=== PATIENT | male | born 1990 | race Caucasian/White ===

== ENCOUNTER 2021-04-30 15:04 | Emergency (ER) | payer OTHER, SELFPAY ==
--- NOTE | ~2021-04-30 | XR_ITS ---
EXAMINATION: XR tibia fibula LT 2V INDICATION: Left leg pain TECHNIQUE: Two views of the left tibia and fibula are obtained on four radiographs. COMPARISON: None available FINDINGS: There is no fracture, dislocation, or subluxation. The bones and joint spaces are normal. T here is mild anterior soft tissue swelling overlying the lower leg. IMPRESSION: 1. Mild soft tissue swelling without acute osseous abnormality. Reviewed, dictated and finalized at location A. PHONE STATION INSTALLER
[2021-04-30 15:16] VITALS: BP 153/94; PULSE 85; RESP 20; TEMP 37.2; O2SAT 100
[2021-04-30 15:17] VITALS: BP 153/94; PULSE 85; RESP 20; TEMP 37.2; O2SAT 100
--- NOTE | 2021-04-30 15:18 | ED.LOWEXIN ---
HPI - Extremity Injury (Lower) General Chief Complaint: Extremity Injury, Lower Stated Complaint: Left Leg Pain Time Seen by Provider: 04/30/21 15:18 Source: patient and RN notes reviewed Mode of arrival: ambulatory Limitations: no limitations History of Present Illness HPI Narrative: Teja is a 30 male patient who ambulated into [facility]. Patient states he had taken a man hole cover off in his yard. He stepped backward and his left leg went into the hole. Small abrasion on left silva and bruising noted. Patient states he used icy hot for pain relief. Patient has not used ice or heat, or any other OTC medications. Patient was seen at [facility]; he states they said they wouldn't do an Xray so patient walked out. MD complaint: leg injury Related Data Home Medications Medication Instructions Recorded Confirmed lisinopril-hydrochlorothiazide 1 tablet PO DAILY 04/30/19 pantoprazole 20 mg PO QAM 04/30/19 bupropion HCl mg PO 04/30/21 04/30/21 sertraline mg 04/30/21 Allergies Allergy/AdvReac Type Severity Reaction Status Date / Time No Known Allergies Allergy Verified 04/30/21 15:14 Review of Systems Review of Systems: CONSTITUTIONAL: Denies body aches, fever, chills, or sweats. EYES: Denies visual changes, redness, or discharge. ENT: Denies rhinorrhea, congestion, sore throat, or otalgia. CARDIOVASCULAR: Denies chest pain, palpitations, or edema. RESPIRATORY: Denies cough or dyspnea. GASTROINTESTINAL: Denies abdominal pain, nausea, vomiting, or diarrhea. GENITOURINARY: Denies dysuria or hematuria. SKIN: Denies rash, itching, + abrasion left silva, bruising MUSCULOSKELETAL: Denies back pain, joint pain, or myalgia. NEUROLOGIC: Denies headache, numbness, tingling, or weakness. PSYCH: Denies depression or anxiety. All systems reviewed & are unremarkable except as noted in HPI and below PMFSH Past Medical History Medical History HTN (hypertension) Surgical History Surgical History No history of previous surgery Social History Social History Smoking status: Never smoker Gender identity (if verbalized by the patient): Male Exam Narrative: GENERAL: Well-appearing, well-nourished, and in no acute distress. HEAD: Normocephalic, atraumatic. EYES: EOMI. No redness or drainage. Conjunctivae normal. ENT: Mucous membranes pink and moist. Nares clear. No rhinorrhea. NECK: Normal AROM. Supple. CHEST: No respiratory distress. MUSCULOSKELETAL: No bony tenderness. EXTREMITIES: Normal range of motion. No edema. SKIN: Warm, dry, no rash. Capillary refill normal. Normal skin turgor. 1cm healing abrasion left silva, ecchymosis to silva. ROM normal. distal sensation intact. NEURO: No focal deficits. Alert and oriented x3. Gait steady. PSYCH: Normal affect. No signs of depression or anxiety. Course Vital Signs Vital signs: Vital Signs Temperature 37.2 C 04/30/21 15:16 Pulse Rate 85 04/30/21 15:16 Respiratory Rate 20 04/30/21 15:16 Blood Pressure 153/94 H 04/30/21 15:16 Pulse Oximetry 100 04/30/21 15:16 Temperature 37.2 C 04/30/21 15:17 Pulse Rate 85 04/30/21 15:17 Respiratory Rate 20 04/30/21 15:17 Blood Pressure 153/94 H 04/30/21 15:17 Pulse Oximetry 100 04/30/21 15:17 Reviewed. Pt has been instructed to follow up with his PCP regarding his elevated blood pressure today. MDM - Extremity Injury (Lower) MDM Narrative Medical decision making narrative: Impressions Tibia/Fibula X-Ray 04/30/21 15:33 IMPRESSION: 1. Mild soft tissue swelling without acute osseous abnormality. Patient's x-ray is negative. Will be treated as a contusion. May use Aleve twice daily for pain/inflammation. May use ice to the area. Follow-up with your primary care doctor in 10 to 14 days Differ
== END 2021-04-30 15:50 | disposition home or self-care (01) ==
PROVIDERS: Emergency Provider Nurse Practitioner Family; PCP Family Medicine
DX: S80.12XA Contusion of left lower leg, initial encounter (principal); W17.1XXA Fall into storm drain or manhole, initial encounter; I10 Essential (primary) hypertension
CPT/HCPCS: 73590; 99213; G0463

== ENCOUNTER 2021-05-19 12:59 | Emergency (ER) | payer OTHER, SELFPAY ==
--- NOTE | ~2021-05-19 | CT_ITS ---
EXAMINATION: CTA chest PE protocol DATE: 05/19/2021 17:47 INDICATION: Shortness of breath. COVID positive. TECHNIQUE: Computed tomography (CT) pulmonary angiogram of the chest was performed with 100 mL Omnipa que-350 intravenous contrast. Additional 3D reconstructions utilizing coronal maximum intensity proje ction (MIP) were performed. Automated exposure control and iterative reconstruction technique were em ployed. The dose-length product was 1065.82 mGy-cm. COMPARISON: None FINDINGS: Good contrast opacification of the pulmonary arteries. There is mild streak artifact from dense contr ast in the superior vena cava and right atrium. Mild scattered respiratory motion artifact which does not significantly limit evaluation. No pulmonary embolism. Numerous very small scattered patchy grou ndglass opacities throughout both lungs consistent with COVID pneumonia. No pulmonary edema, pleural effusion or pneumothorax. Normal variant azygos lobe and fissure. Heart size is normal. No pericardia l effusion. Thoracic aorta is normal in caliber with no dissection. Mildly prominent but still normal -sized bilateral hilar lymph nodes which are likely reactive. Small sliding-type hiatal hernia. Diffu se hepatic steatosis. Visualized upper abdomen is otherwise unremarkable. Mild thoracic spondylosis. Chronic appearing mild anterior wedging at T11 and T12 which may be physiologic. IMPRESSION: 1. No pulmonary embolism. 2. Numerous small patchy groundglass opacities throughout both lungs consistent with COVID pneumonia. Reviewed, dictated and finalized at [facility]. COOK
--- NOTE | ~2021-05-19 | XR_ITS ---
EXAMINATION: XR chest 1V portable DATE: 05/19/2021 15:46 INDICATION: Shortness of breath. COVID. TECHNIQUE: frontal view of the chest was obtained. COMPARISON: Chest radiograph dated 04/30/2019 FINDINGS: The lungs remain clear with no focal airspace opacities, pulmonary edema, pleural effusion or pneumot horax. Again seen is anatomic variant azygos lobe and fissure in the right upper lung zone. The cardi omediastinal silhouette is normal. Visualized bones and soft tissues are unremarkable. IMPRESSION: 1. No acute cardiopulmonary disease. Reviewed, dictated and finalized at location . NSIC TECHNICIAN
[2021-05-19 13:09] VITALS: BP 157/121; PULSE 104; RESP 20; TEMP 36.4; O2SAT 98
--- NOTE | 2021-05-19 13:14 | ECG_ITS ---
Measurements Intervals Jackman Rate: 111 P: 33 ND: 166 QRS: -38 QRSD: 117 T: 31 QT: 329 QTc: 447 Interpretive Statements SINUS TACHYCARDIA LEFT AXIS DEVIATION INTRAVENTRICULAR CONDUCTION DELAY DELAYED PRECORDIAL R/S TRANSITION ABNORMAL ECG Electronically Signed On 05-19-2021 17:46:19 TELLERS SUPERVISOR by Quentin Solis D.O.
[2021-05-19 15:21] VITALS: BP 108/57; PULSE 100; RESP 20; O2SAT 95
[2021-05-19 16:51] LABS: Basophils Percent Auto 0.3 % (0.2-1.2); Eosinophils Percent Auto 0.5 % (0-4.4); Hematocrit 47.1 % (42.0-52.0); Immature Granulocyte Absolute 0.02 K/mm3 (0.00-0.031); Immature Granulocyte Percent A 0.5 % (0-0.5); Lymphocytes Absolute Auto 1.26 K/mm3 (0.9-3.2); Mean Corpuscular Volume 85.5 fl (80-100); Mean Platelet Volume 9.9 fl (7.4-10.4); Monocytes Absolute Auto 0.4 K/mm3 (0.1-0.6); Monocytes Percent Auto 9.7 % (2.6-8.5); Neutrophils Absolute Auto 2.1 K/mm3 (1.3-6.7); Platelet Count Result 221 k/mm3 (150-375); Red Blood Count 5.51 M/mm3 (4.6-6.20); Red Cell Distribution Width 12.6 % (11.5-14.5); White Blood Count 3.8 K/mm3 (4.5-10.0)
[2021-05-19 17:00] LABS: Alanine Aminotransferase 52 U/L (4-50); Albumin Level 4.6 g/dL (3.5-5.1); Alkaline Phosphatase 69 U/L (38-126); Anion Gap 8 mmol/L (8-16); Aspartate Amino Transferase 40 U/L (17-59); Bilirubin,Total 0.4 mg/dL (0.2-1.3); Blood Urea Nitrogen 14 mg/dL (9-20); Carbon Dioxide 22 mmol/L (22-30); Chloride 102 mmol/L (98-107); Estimated CRCL calculation 181 ml/min; Estimated Glomerular Filt Rate > 60; Glucose 94 mg/dL (65-110); Potassium 3.7 mmol/L (3.4-5.0); Sodium 132 mmol/L (137-145)
[2021-05-19 17:04] LABS: INR 0.9
[2021-05-19 17:05] LABS: Partial Thromboplastin Time 31.3 SECONDS (22.3-36.8)
[2021-05-19 17:07] LABS: D Dimer 0.45 ug/mL (<0.48)
[2021-05-19 17:11] LABS: Troponin I < 0.012 ng/mL (0.000-0.034)
--- NOTE | 2021-05-19 18:08 | ED.GENADULT ---
HPI - General Adult General Chief complaint: Shortness of Breath/Dyspnea Stated complaint: SOB- covid + on 05/15 Time Seen by Provider: 05/19/21 15:25 Source: patient Mode of arrival: ambulatory Limitations: no limitations History of Present Illness HPI narrative: Patient presents for evaluation of numbness and tingling in bilateral hands and feet which started today. He indicates on 05/15/2021 he took his children to be evaluated at [facility]. They had stayed over at a friend's house who tested positive for COVID. While he was driving he began feeling lightheaded so he went to [facility] on 05/15/21. He states he had labs performed, COVID swab, and CXR. He was discharged from the ER and told he had a viral illness. The next day he saw in his electronic chart that he tested positive for COVID. [place] short of breath and has a nonproductive cough. Denies any fever, chills, sore throat, abdominal pain, chest pain, nausea, vomiting or diarrhea. Today he developed numbness and tingling in his hands and feet which prompted him to come in for further evaluation. No personal history of VTE but his mother does have a history of DVT. No additional complaints or concerns. Related Data Home Medications Medication Instructions Recorded Confirmed lisinopril-hydrochlorothiazide 1 tablet PO DAILY 04/30/19 pantoprazole 20 mg PO QAM 04/30/19 bupropion HCl mg PO 04/30/21 04/30/21 sertraline mg 04/30/21 Allergies Allergy/AdvReac Type Severity Reaction Status Date / Time No Known Allergies Allergy Verified 04/30/21 15:14 Review of Systems Review of Systems: CONSTITUTIONAL: Denies fever, chills, or sweats. EYES: Denies visual changes, redness, or discharge. ENT: Denies rhinorrhea, congestion, sore throat, or otalgia. CARDIOVASCULAR: Denies chest pain, palpitations, or edema. RESPIRATORY: Reports shortness of breath and cough GASTROINTESTINAL: Denies abdominal pain, nausea, vomiting, or diarrhea. GENITOURINARY: Denies dysuria or hematuria. SKIN: Denies rash or itching. MUSCULOSKELETAL: Denies back pain, joint pain, or myalgia. NEUROLOGIC: Reports numbness and tingling in bilateral hands and feet. Denies headache, numbness, dizziness, or weakness. PSYCHIATRIC: Denies anxiety or depression. [facility] Past Medical History Medical History HTN (hypertension) Surgical History Surgical History No history of previous surgery Family History Family History Mother DVT (deep venous thrombosis) Pulmonary embolism Social History Social History Smoking status: Never smoker Substance use: never Living arrangements: with family Gender identity (if verbalized by the patient): Male Sexual Orientation (if Verbalized by the Patient): Straight or Heterosexual Spiritual care concerns: No Exam Narrative: GENERAL: Well-appearing, well-nourished, and in no acute distress. HEAD: Normocephalic, atraumatic. EYES: PERRLA and EOMI. ENT: Nares clear, no rhinorrhea or epistaxis. Mucous membranes moist. Oropharynx without tonsillar hypertrophy exudate or other lesions. Bilateral TMs pearly foster nonbulging NECK: Supple. No adenopathy or masses. No carotid bruits or JVD CHEST: Clear to auscultation. No respiratory distress. No wheezes rales or rhonchi HEART: Regular rate and rhythm. No murmur heard. Normal peripheral pulses. ABDOMEN: Soft, nontender, nondistended, normal active bowel sounds. EXTREMITIES: Normal range of motion. No edema. Capillary refill less than 3 seconds in all digits of hands and feet. 2+ bilateral pedal and radial pulses. Sensation intact SKIN: Warm, dry, no rash. NEURO: No focal deficits. Alert and oriented x3. PSYCH: Normal mood and affect. Course C
[2021-05-19 18:37] VITALS: BP 132/78; PULSE 76; RESP 18; O2SAT 99
== END 2021-05-19 18:40 | disposition home or self-care (01) ==
PROVIDERS: Emergency Provider Nurse Practitioner; PCP Family Medicine
DX: U07.1 COVID-19 (principal); J18.9 Pneumonia, unspecified organism; I10 Essential (primary) hypertension; R00.0 Tachycardia, unspecified; I45.9 Conduction disorder, unspecified
CPT/HCPCS: 36415; 71045; 71275; 80053; 84484; 85025; 85380; 85610; 85730; 93005; 99284; Q9967

== ENCOUNTER 2021-10-11 09:09 | Emergency (ER) | payer OTHER, SELFPAY ==
[2021-10-11 09:23] VITALS: BP 171/100; PULSE 81; RESP 16; TEMP 37; O2SAT 98
--- NOTE | 2021-10-11 09:32 | ED.NAVMDI ---
HPI - Nausea/Vomiting/Diarrhea General Chief complaint: Nausea/Vomiting/Diarrhea Stated complaint: Headache,Swollen Hands Time Seen by Provider: 10/11/21 09:32 Source: patient Mode of arrival: ambulatory Limitations: no limitations History of Present Illness HPI Narrative: 31-year-old male, who is morbidly obese, presents with complaint of fatigue, body aches, nausea, soft stools, headache that started this AM. Reports that his hands are swollen. Yesterday he ate sushi which was not good so he only ate a few bites and then ate pizza for dinner. He has not taken his blood pressure medication for 1 week. States that sitting right there on his bedside table but he has just not taking it. He denies shortness of breath and chest pain. He thinks that he may have a virus. Trying to go to work today. But did not feel good enough to work. Is here to see if he is contagious. Reports that he last saw his primary care physician 1 month ago. 2 months ago he had labs drawn and was told cholesterol was high but no issues with blood glucose or A1c. Patient also states his blood pressure is probably high today due to not taking his medications. He does not need a refill. All systems reviewed and negative except as noted above. Related Data Home Medications Medication Instructions Recorded Confirmed lisinopril-hydrochlorothiazide 1 tablet PO DAILY 04/30/19 pantoprazole 20 mg PO QAM 04/30/19 bupropion HCl mg PO 04/30/21 04/30/21 sertraline mg 04/30/21 Allergies Allergy/AdvReac Type Severity Reaction Status Date / Time amoxicillin AdvReac Other Verified 10/11/21 09:32 Review of Systems Review of Systems: CONSTITUTIONAL: Denies fever. Reports chills, sweats and fatigue. EYES: Denies visual changes, redness, or discharge. ENT: Denies rhinorrhea, congestion, sore throat, or otalgia. CARDIOVASCULAR: Denies chest pain, palpitations, or edema. RESPIRATORY: Denies cough or dyspnea. GASTROINTESTINAL: Denies abdominal pain. Reports nausea. Denies vomiting, or diarrhea. GENITOURINARY: Denies dysuria or hematuria. SKIN: Denies rash or itching. MUSCULOSKELETAL: Denies back pain, joint pain, or myalgia. NEUROLOGIC: Reports headache. Denies numbness, or weakness. PSYCHIATRIC: Denies anxiety or depression. All other systems reviewed are negative, except as documented in HPI. [facility] Past Medical History Medical History HTN (hypertension) Surgical History Surgical History No history of previous surgery Family History Family History Mother DVT (deep venous thrombosis) Pulmonary embolism Social History Social History Smoking status: Never smoker Substance use: never Gender identity (if verbalized by the patient): Male Sexual Orientation (if Verbalized by the Patient): Straight or Heterosexual Spiritual care concerns: No Comments At time of signature, agree with nursing past medical, surgical, social and family history. There is no relevant family history pertinent to the presenting complaint. Exam Narrative: GENERAL: This is a well-nourished, well-developed patient, in no apparent distress. Morbidly obese. HEAD: normocephalic, atraumatic. EYES: PERRL. Sclera clear/white. Vision is grossly intact. EARS: External ears normal NOSE: External nose normal NECK: Neck supple, non-tender without lymphadenopathy, masses or thyromegaly. CARDIOVASCULAR: Regular rate and rhythm without murmurs, gallops, or rubs. RESPIRATORY: Clear to auscultation. Breath sounds equal bilaterally. No wheezes, rales, or rhonchi. GASTROINTESTINAL: Abdomen soft, non-tender, nondistended. Bowel sounds are active. No hepato-splenomegaly, or palpable masses. No guarding. SKIN: warm, Dry, intact with no suspicious le
[2021-10-11] MEDS: ONDANSETRON HCL ODT 4 MG TABLET SUBLINGUAL (09:49)
[2021-10-11 09:52] LABS: Glucose Point of Care 114 mg/dl (65-105)
[2021-10-11 10:12] VITALS: BP 134/96
== END 2021-10-11 10:03 | disposition home or self-care (01) ==
PROVIDERS: Emergency Provider Nurse Practitioner Family; PCP Family Medicine
DX: I10 Essential (primary) hypertension (principal); A08.4 Viral intestinal infection, unspecified
CPT/HCPCS: 82948; 99213; A9270; G0463

== ENCOUNTER 2021-10-30 17:01 | Emergency (ER) | payer OTHER, SELFPAY ==
[2021-10-30 17:10] VITALS: BP 156/88; PULSE 98; RESP 20; TEMP 37.2; O2SAT 98
--- NOTE | 2021-10-30 17:24 | ED.GENADULT ---
HPI - General Adult General Chief complaint: Unspecified Stated complaint: geronimo hand swelling Time Seen by Provider: 10/30/21 17:24 Source: patient Mode of arrival: ambulatory Limitations: no limitations History of Present Illness HPI narrative: 31-year-old male presented for complaint of left hand pain and swelling for about 3 to 4 days. He denies any known injury. 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 He is right-hand dominant. He took Advil and reports that felt better but did not resolve completely. Cannot tolerate ice or wrap. States he has been having increased Right hand pain for about one month, and has switched hands using power transformer inspector to the left hand. He denies numbness, tingling, or weakness of the hand. Pain is worse with bending at the wrist. Hx HTN. Related Data Home Medications Medication Instructions Recorded Confirmed lisinopril 20 1 tablet PO DAILY 04/30/19 10/30/21 mg-hydrochlorothiazide 25 mg tablet pantoprazole 20 mg tablet,delayed 20 mg PO QAM 04/30/19 10/30/21 release bupropion HCl 300 mg 24 hr tablet, 300 mg PO DAILY 04/30/21 10/30/21 extended release sertraline 50 mg tablet 50 mg PO DAILY 04/30/21 10/30/21 Allergies Allergy/AdvReac Type Severity Reaction Status Date / Time amoxicillin AdvReac Other Verified 10/30/21 17:21 Review of Systems Review of Systems: CONSTITUTIONAL: Denies body aches, fever, chills EYES: Denies visual changes CARDIOVASCULAR: Denies chest pain, palpitations, or edema. RESPIRATORY: Denies cough or dyspnea. SKIN: Denies rash, itching, or wounds. MUSCULOSKELETAL: reports hand/wrist pain NEUROLOGIC: Denies headache, numbness, tingling, or weakness. All systems reviewed & are unremarkable except as noted in HPI and below PMFSH Past Medical History Medical History HTN (hypertension) Surgical History Surgical History No history of previous surgery Family History Family History Mother DVT (deep venous thrombosis) Pulmonary embolism Social History Social History Smoking status: Never smoker Substance use: never Gender identity (if verbalized by the patient): Male Sexual Orientation (if Verbalized by the Patient): Straight or Heterosexual Spiritual care concerns: No Comments At time of signature, I have reviewed and agree with nursing past medical, surgical, social and family history unless otherwise noted. Please see nursing chart for further information. There is no relevant family history pertinent to the presenting complaint Exam Narrative: GENERAL: Well-appearing CHEST: Speaks in full sentences. No respiratory distress. HEART: Regular rate and rhythm. Normal and equal peripheral pulses. EXTREMITIES: Left hand has limited range of motion with flexion/extension due to pain with movement, tolerates rotation of left wrist. normal motor, strength and sensation to hand/fingers. Mild swelling over metacarpals, TTP over the dorsal surface of carpals into metacarpals, reported pain with light touch to skin; no ecchymosis. Abrasion approx 0.5 cm length without drainage or induration is noted. No obvious deformity; pulse palpable and equal bilaterally, skin warm, dry, pink. Capillary refill less than 3 seconds. NEURO: Alert and oriented x3. Course Course Emergency Course: Patient is aware of diagnosis, understands and agrees to treatment plan. Anticipatory guidance given. Patient agrees to follow-up as directed and is aware of reasons to seek care at the emergency department. Portions of this record may have been created with voice recognition software Level of Care: Express Care Visit Vital Signs Vital signs: Vital Signs Temperature 99.0 F 10/30/21 17:10 Pulse Rate 98 10/30/21 17:10 Respirator
== END 2021-10-30 17:44 | disposition home or self-care (01) ==
PROVIDERS: Emergency Provider Nurse Practitioner Family; PCP Family Medicine
DX: M79.89 Other specified soft tissue disorders (principal); I10 Essential (primary) hypertension
CPT/HCPCS: 99213; G0463

== ENCOUNTER 2022-04-13 15:42 | Emergency (ER) | payer OTHER, SELFPAY ==
[2022-04-13 16:50] VITALS: BP 149/89; PULSE 84; RESP 20; TEMP 36.6; O2SAT 99
--- NOTE | 2022-04-13 17:04 | ED.GENADULT ---
HPI - General Adult General Chief complaint: Dental/Oral Stated complaint: dizziness Time Seen by Provider: 04/13/22 17:04 Source: patient Mode of arrival: ambulatory Limitations: no limitations History of Present Illness HPI narrative: 31-year-old male patient presents to the [facility] with complaints of left-sided were soreness/pain on the neck. Nasal congestion, headache sinus pressure. Patient states it has been going on for about 2 days prior denies fevers, body aches or chills. Denies any chest pain, shortness of breath. Denies any coughing. Denies any abdominal pain, nausea, vomiting or diarrhea. Related Data Home Medications Medication Instructions Recorded Confirmed lisinopril 20 1 tablet PO DAILY 04/30/19 04/13/22 mg-hydrochlorothiazide 25 mg tablet pantoprazole 20 mg tablet,delayed 20 mg PO QAM 04/30/19 04/13/22 release sertraline 50 mg tablet 50 mg PO DAILY 04/30/21 04/13/22 Allergies Allergy/AdvReac Type Severity Reaction Status Date / Time amoxicillin AdvReac Mild Dry Mouth Verified 04/13/22 17:02 Review of Systems Review of Systems: CONSTITUTIONAL: Denies fever, chills, or sweats. EYES: Denies visual changes, redness, or discharge. ENT: Positive rhinorrhea, congestion, sore throat, positive pressure to bilateral ears. CARDIOVASCULAR: Denies chest pain, palpitations, or edema. RESPIRATORY: Denies cough or dyspnea. GASTROINTESTINAL: Denies abdominal pain, nausea, vomiting, or diarrhea. GENITOURINARY: Denies dysuria or hematuria. SKIN: Denies rash or itching. MUSCULOSKELETAL: Denies back pain, joint pain, or myalgia. NEUROLOGIC: Denies headache, numbness, or weakness. PSYCHIATRIC: Denies anxiety or depression. [facility] Past Medical History Medical History HTN (hypertension) Surgical History Surgical History No history of previous surgery Family History Family History Mother DVT (deep venous thrombosis) Pulmonary embolism Social History Social History Smoking status: Never smoker Substance use: never Gender identity (if verbalized by the patient): Male Sexual Orientation (if Verbalized by the Patient): Straight or Heterosexual Spiritual care concerns: No Comments At the time of my signature I agree with nursing past medical history, surgical, social, and family history. There is no relevant family history pertinent to the presenting complaint. Exam Narrative: GENERAL: Well-appearing, well-nourished, and in no acute distress. HEAD: Normocephalic, atraumatic. EYES: PERRLA and EOMI. ENT: Nares with erythema or edema noted bilaterally, no rhinorrhea or epistaxis. Mucous membranes moist. Posterior pharynx with no erythema tonsillar enlargement, exudates or lesions present. Slight fluid noted behind bilateral TMs NECK: Supple. Slight limp adenopathy with tenderness noted along the left mandible CHEST: Clear to auscultation. No respiratory distress. HEART: Regular rate and rhythm. No murmur heard. Normal peripheral pulses. ABDOMEN: Soft, nontender, nondistended, normal active bowel sounds. EXTREMITIES: Normal range of motion. No edema. SKIN: Warm, dry, no rash. NEURO: No focal deficits. Alert and oriented x3. Course Course Level of Care: Express Care Visit Vital Signs Vital signs: Vital Signs Temperature 36.6 C 04/13/22 16:50 Pulse Rate 84 04/13/22 16:50 Respiratory Rate 20 04/13/22 16:50 Blood Pressure 149/89 H 04/13/22 16:50 Pulse Oximetry 99 04/13/22 16:50 Temperature 36.6 C 04/13/22 16:50 Pulse Rate 84 04/13/22 16:50 Respiratory Rate 20 04/13/22 16:50 Blood Pressure 149/89 H 04/13/22 16:50 Pulse Oximetry 99 04/13/22 16:50 Vital signs reviewed The patient has been informed that they may have pre-hypertension
== END 2022-04-13 17:40 | disposition home or self-care (01) ==
PROVIDERS: Emergency Provider Nurse Practitioner Family; PCP Family Medicine
DX: J01.90 Acute sinusitis, unspecified (principal); I10 Essential (primary) hypertension
CPT/HCPCS: 99213; G0463

== ENCOUNTER 2023-10-05 18:08 | Emergency (ER) | payer SELFPAY ==
[2023-10-05 18:31] VITALS: BP 111/66; PULSE 77; RESP 18; TEMP 36.1; O2SAT 99
--- NOTE | 2023-10-05 18:44 | ED.GENADULT ---
HPI - General Adult General Chief complaint: Unspecified <NAIDA Storey Last Filed: 10/05/23 18:58> Stated complaint: fatigue, painful joints, tick bite <NAIDA Storey Last Filed: 10/05/23 18:58> Time Seen by Provider: 10/05/23 18:44 <NAIDA Storey Last Filed: 10/05/23 18:58> Focused HPI: Patient is a 33 y/o male who presents to the ED with c/o tick bites. Patient states he sustained several tick bites at work on Thursday, to his lower legs, left shoulder, right hand, upper back. He was able to remove the takes. Has since developed significant itching to the tick bites. Also complains of fatigue, body aches/joint pain. He states his co-worker tested positive for Lyme disease and is wanting to be tested. Also reports sore throat that began on Thursday, cough. Denies difficulty breathing, fevers, other rash. GENERAL: Well-appearing, morbidly obese with BMI of 52.4, and in no acute distress. HEAD: Normocephalic, atraumatic. ENT: Mild posterior pharynx erythema, no tonsillar hypertrophy or exudate. CHEST: Clear to auscultation. ?No respiratory distress. HEART: Regular rate and rhythm.? SKIN: Scattered bite last to lower legs, R hand, L upper chest wall. No Bullseye sign/evidence of erythema migrans. Bite on R lower leg with mild surrounding erythema. NEURO: ?Alert and oriented x3. Patient screened in triage and initial orders placed.? ?Additional care and disposition to be based upon?diagnostic testing and treatment. <NAIDA Storey Last Filed: 10/05/23 18:58> Source: patient <NAIDA Storey Last Filed: 10/05/23 18:58> Mode of arrival: ambulatory <NAIDA Storey Last Filed: 10/05/23 18:58> Limitations: no limitations <NAIDA Storey Last Filed: 10/05/23 18:58> History of Present Illness HPI narrative: 33-year-old male presents to emergency department with concerns for Lyme disease. Patient states 3 days ago he was in an area with his co-worker with a obtain multiple tick bites. Patient states he had approximately 4 tick bites. States he removed the techs within a few hours of attachment. He states his co-worker has gone and been tested since for Lyme disease and tested positive so the patient is concerned. He states the areas of the tick bites are itchy but denies fever, neurologic deficits, vomiting. Per the triage note the patient was complaining of joint pain, however he denies this to me. <Janette Bunn PA-C - Last Filed: 10/05/23 21:03> Related Data Home medications: Home Medications Medication Instructions Recorded Confirmed lisinopril 20 1 tablet PO DAILY 04/30/19 04/13/22 mg-hydrochlorothiazide 25 mg tablet pantoprazole 20 mg tablet,delayed 20 mg PO QAM 04/30/19 04/13/22 release sertraline 50 mg tablet 50 mg PO DAILY 04/30/21 04/13/22 <NAIDA Storey Last Filed: 10/05/23 18:58> Allergies/adverse reactions: Allergies Allergy/AdvReac Type Severity Reaction Status Date / Time amoxicillin AdvReac Mild Dry Mouth Verified 04/13/22 17:02 <NAIDA Storey Last Filed: 10/05/23 18:58> Review of Systems Review of Systems: CONSTITUTIONAL: Denies fever, chills, or sweats. EYES: Denies visual changes, redness, or discharge. ENT: Denies rhinorrhea, congestion, sore throat, or otalgia. CARDIOVASCULAR: Denies chest pain, palpitations, or edema. RESPIRATORY: Denies cough or dyspnea. GASTROINTESTINAL: Denies abdominal pain, nausea, vomiting, or diarrhea. GENITOURINARY: Denies dysuria or hematuria. SKIN: See HPI MUSCULOSKELETAL: Denies back pain, joint pain, or myalgia. NEUROLOGIC: Denies headache, numbness, or weakness. PSYCHIATRIC: Denies anxiety or depression. <Janette Bunn PA-C - Last Filed: 10/05/23 21:03> PMFSH Past Medical History Medical History: Medical History (Reviewed 10/05/23 @ 21:01 by Janette Justin
[2023-10-05 19:48] LABS: Basophils Percent Auto 0.4 % (0.2-1.2); Eosinophils Absolute Auto 0.5 K/mm3 (0-0.3); Eosinophils Percent Auto 6.1 % (0-4.4); Hematocrit 44.7 % (42.0-52.0); Immature Granulocyte Absolute 0.06 K/mm3 (0.00-0.031); Immature Granulocyte Percent A 0.7 % (0-0.5); Lymphocytes Absolute Auto 3.17 K/mm3 (0.9-3.2); Lymphocytes Percent Auto 35.6 % (18.3-44.2); Mean Corpuscular HGB Conc 33.6 g/dl (32-36); Mean Corpuscular Hemoglobin 28.7 pg (26-34); Mean Corpuscular Volume 85.6 fl (80-100); Mean Platelet Volume 9.8 fl (7.4-10.4); Monocytes Absolute Auto 0.6 K/mm3 (0.1-0.6); Monocytes Percent Auto 6.6 % (2.6-8.5); Neutrophils Absolute Auto 4.5 K/mm3 (1.3-6.7); Neutrophils Percent Auto 50.6 % (45.5-73.1); Platelet Count Result 269 k/mm3 (150-375); Red Blood Count 5.22 M/mm3 (4.6-6.20); Red Cell Distribution Width 13.2 % (11.5-14.5); White Blood Count 8.9 K/mm3 (4.5-10.0)
[2023-10-05 20:00] LABS: Anion Gap 10 mmol/L (4-12); Blood Urea Nitrogen 12 mg/dL (9-20); Calcium 9.2 mg/dL (8.4-10.2); Carbon Dioxide 22 mmol/L (22-30); Chloride 108 mmol/L (98-107); Estimated CRCL calculation 236 ml/min; Estimated Glomerular Filt Rate > 60; Glucose 107 mg/dL (65-110); Sodium 140 mmol/L (137-145)
[2023-10-05 20:27] LABS: Influenza A QL RT-PCR Negative (Negative); Influenza B QL RT-PCR Negative (Negative); RSV RNA, RT-PCR Negative (Negative); SARS-CoV-2 RNA PCR Negative (Negative)
[2023-10-05 21:01] VITALS: BP 163/108; PULSE 80; RESP 16; TEMP 37; O2SAT 99
[2023-10-05] MEDS: DOXYCYCLINE HYCLATE 100 MG TABLET 200 MG PO (21:04)
[2023-10-08 14:28] LABS: Lyme Disease Ab (IgM), Blot NEGATIVE (NEGATIVE); Lyme Disease Ab(IgG), Blot NEGATIVE (NEGATIVE)
== END 2023-10-05 21:24 | disposition home or self-care (01) ==
PROVIDERS: Physician Assistant; Emergency Provider Physician Assistant; PCP Family Medicine
DX: S80.861A Insect bite (nonvenomous), right lower leg, initial encounter (principal); S40.262A Insect bite (nonvenomous) of left shoulder, initial encounter; I10 Essential (primary) hypertension; Z20.822 Contact with and (suspected) exposure to COVID-19
CPT/HCPCS: 36415; 80048; 85025; 86617; 87637; 99283; A9270

== ENCOUNTER 2024-07-19 15:52 | Outpatient (CLI) | payer BC, SELFPAY ==
--- OUTSIDE RECORDS SUMMARY | 2024-07-19 18:23 | XMS_ITS | Clinical Summary ---
Author Organization [facility] Address [address] [place] [address] Care Team Providers Care Host Name Role Phone No, Physician Primary Care Provider [phone] Allergies Active Allergy Reactions Criticality Noted Date Comments Amoxicillin Other (See comments) Low 05/23/2021 hypertension Tramadol Other (See comments) Low 10/29/2021 Anger Medications ondansetron ODT (ZOFRAN-ODT) 4 mg disintegrating tablet Take 1 tablet (4 mg total) by mouth every 8 (eight) hours as needed for nausea or vomiting 20 tablet 05/21/20 21 Active Additional Information Patient not taking.Reported on 08/02/2021 benzonatate (TESSALON) 100 mg capsuleIndications :Cough Take 1 capsule (100 mg total) by mouth every 8 (eight) hours 21 capsule 05/21/20 21 Active Additional Information Patient not taking.Reported on 08/02/2021 traMADoL (ULTRAM) 50 mg tablet Take 1 tablet (50 mg total) by mouth every 6 (six) hours 20 tablet 05/21/20 21 Active Additional Information Patient not taking.Reported on 08/02/2021 albuterol HFA (PROVENTIL HFA,VENTOLIN HFA,PROAIR HFA) 90 mcg/actuation inhaler Inhale 2 puffs every 4 (four) hours as needed for wheezing 18 g 05/23/[address] (PROTONIX) 40 mg EC tabletIndications: Stress Ulcer Prophylaxis Take 40 mg by mouth daily Active buPROPion XL (WELLBUTRIN XL) 300 mg 24 hr tablet Take 300 mg by mouth daily Active lisinopril-hydroCH LOROthiazide (ZESTORETIC) 20-25 mg per tabletIndications: hypertension Take 1 tablet by mouth daily Active atorvastatin (LIPITOR) 20 mg tablet Take 20 mg by mouth daily Active sertraline (ZOLOFT) 50 mg tablet Take 50 mg by mouth daily Active naproxen (NAPROSYN) 500 mg tablet Take 1 tablet (500 mg total) by mouth 2 (two) times a day with meals 30 tablet 10/30/19 23 Active methylPREDNISolone (MEDROL DOSEPACK) 4 mg Dosepack Take 1 tablet (4 mg total) by mouth daily Take as directed on package 1 packet 10/30/19 23 Active cyclobenzaprine (FLEXERIL) 10 mg tablet Take 1 tablet (10 mg total) by mouth 3 (three) times a day as needed for muscle spasms 15 tablet 10/30/19 23 Active ketorolac (TORADOL) 10 mg tablet Take 1 tablet (10 mg total) by mouth every 6 (six) hours as needed for pain 20 tablet 01/07/20 24 Active Active Problems Problem Noted Date Diagnosed Date COVID-19 05/25/2021 Acute respiratory failure with hypoxia (CMS/HCC) 05/25/2021 GERD (gastroesophageal reflux disease) Morbid obesity with BMI of 45.0-49.9, adult 05/2021 Grief reaction JAKE (obstructive sleep apnea) Medical History Medical History Date Comments GERD (gastroesophageal reflux disease) Hypertension Sleep apnea Family History Medical History Relation Name Comments Cancer Father Diabetes Mother Hypertension Mother Relation Name Status Comments Father Mother Social History Tobacco Use Types Packs/Day Years Used Date Smoking Tobacco: Never Smokeless Tobacco: Never AUDIT-C Answer Date Recorded Q1: How often do you have a drink containing alc ohol? Never 05/26/2021 Average Number of Drinks Not on file 022 Frequency of Binge Drinking Not on file 06/2021 Personal Safety Answer Date Recorded Have you ever been in or are you currently in a harmful physical or emotional relationship or is someone making you feel afraid or unsafe? 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 Gender Identity Not on file Sexual Orientation Not on file Obstetrics History Last Filed Vital Signs Vital Sign Reading Time Taken Comments Blood Pressure 158/96 01/07/2024 3:30 PM CDT Pulse 85 01/07/2024 3:30 PM CDT Temperature 36.4 C (97.5 F) 01/07/2024 1:20 PM CDT Respiratory Rate 18 01/07/2024 3:30 PM CDT Oxygen Saturation 97% 01/07/2024 3:30 PM CDT Inhaled Oxygen Concentration - - Weight 185 kg (407 lb 13.6 oz) 01/07/2024 1:20 P M CDT Height 190.5 cm (6' 3 ) 01/07/2024 1:20 PM CDT Body Mass Index 50.98 01/07/2024 1:20 PM CDT Plan of Treatment Health Maintenance Due Date Last Done Comments Depression Screening 1992 Hepatitis C Screening 1992 Varicella Vaccines (1 of 2 - 13+ 2-dose series) 2005 Hepatitis B Screening 2010 Regular Well Visit/Exam 18-64 2010 Influenza Vaccine (#1) 2024 04/23/2022 DTaP/Tdap/Td Vaccine (7 - Td or Tdap) 06/05/2024 06/05/2014, 09/21/1996, 12/18/1993, Additional history exists HPV Vaccines Aged Out No longer eligi ble based on patient's age to complete this topic Pneumococcal vaccine <65 Aged Out No longer eligible based on patient's age to complete this topic Insurance [facility] Advance Directives For more information, please contact: [phone] * Full Code (Latest Code Status on File) Date Activated Date Inactivated Comments 05/25/2021 1:56 PM 05/30/2021 6:52 PM Care Teams Host Relationship Specialty Start Date End Date No, Physician PCP - General 01/07/24
--- OUTSIDE RECORDS SUMMARY | 2024-07-19 18:23 | XMS_ITS | Referral Summary ---
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
--- OUTSIDE RECORDS SUMMARY | 2024-07-19 18:23 | XMS_ITS | Clinical Summary ---
Author Organization [facility] Address [address] [place] [address] Care Team Providers Care Machine Heddle Cleaner Name Role Phone None, Provider MD Primary Care Provider Unavaila ble Allergies Active Allergy Reactions Criticality Noted Date Comments Amoxicillin Unknown 10/26/2023 Dexlansoprazole Diarrhea,GI Upset,Vomiting High 01/23 Medications HYDROcodone-acetam inophen 5-325 MG tabletIndications: Acute Pain < 7 Day Supply Take 1-2 tablets by mouth every 6 (six) hours as needed. Indications: Acute Pain < 7 Day Supply 10 tablet 1 Active diclofenac sodium (VOLTAREN) 1 % gel Apply 4 g topically 4 (four) times daily. 100 g 4 Active methylPREDNISolone , CHANDLER, (MEDROL DOSEPAK) 4 MG tablet 6 TABLETS ON DAY ONE, 5 TABLETS DAY TWO, 4 TABLETS DAY THREE, 3 TABLETS DAY FOUR, 2 TABLETS DAY FIVE, AND 1 TABLET DAY SIX 1 each 4 Active hydroCHLOROthiazid e (HYDRODIURIL) 25 MG tablet Take 1 tablet (25 mg total) by mouth every morning. 30 tablet 1 4 Active lisinopril (PRINIVIL) 20 MG tablet Take 1 tablet (20 mg total) by mouth daily. 30 tablet 1 4 Active ondansetron (ZOFRAN-ODT) 4 MG disintegrating tablet Take 1 tablet (4 mg total) by mouth every 8 (eight) hours as needed. 20 tablet 4 Active Active Problems Problem Noted Date Diagnosed Date Fever 09/08/2018 Acute low back pain without sciatica, unspecified back pain laterality 08/19/2018 GERD (gastroesophageal reflux disease) 8 Sleep apnea 10/19/2014 Hypertension 11/21/2013 Resolved Problems Problem Noted Date Diagnosed Date Resolved Date Encounter for preventive health examination 02/09/2012 02/03/2020 Encounters Date Type Department Care Team Description 05/22/2024 3:44 PM CARE TECH - 05/22/2024 9:38 PM CARE TECH Emergency [facility] [place] [address] Nuno Persaud, DO Palpitations Discharge Disposition: Home or Self Care (Routine Discharge) 05/22/2024 Travel from Last 3 Months Immunizations Name Administration Dates Next Due Hepatitis A (Generic) 10/29/2015,06/05/2014 Tdap (Generic) 06/05/2014 Family History Medical History Relation Comments Heart murmur Brother Bone cancer Father Diabetes Maternal Grandfather Hypertension Maternal Grandfather Diabetes Maternal Grandmother Hypertension Maternal Grandmother Tumor Maternal Grandmother Diabetes Mother Hypertension Mother Alzheimers Sister None Sister Relation Status Comments Brother Alive Father Maternal Grandfather Maternal Grandmother Mother Alive Sister Alive Social History Tobacco Use Types Packs/Day Years Used Date Smoking Tobacco: Never Smokeless Tobacco: Never Alcohol Use Standard Drinks/Week Comments No 0 (1 standard drink = 0.6 oz pur e alcohol) Sex and Gender Information Value Date Recorded Sex Assigned at Not on file Legal Sex Male 5:47 PM CDT Gender Identity Not on file Sexual Orientation Not on file Last Filed Vital Signs Vital Sign Reading Time Taken Comments Blood Pressure 118/73 05/22/2024 9:00 PM CARE TECH Pulse 82 05/22/2024 9:00 PM CARE TECH Temperature 36.6 C (97.9 F) 05/22/2024 3:20 PM CARE TECH Respiratory Rate 19 05/22/2024 9:00 PM CARE TECH Oxygen Saturation 98% 05/22/2024 5:20 PM CARE TECH Inhaled Oxygen Concentration - - Weight 192 kg (423 lb 4.5 oz) 05/22/2024 3:20 PM CARE TECH Height 190.5 cm (6' 3 ) 05/22/2024 3:20 PM CARE TECH Body Mass Index 52.91 05/22/2024 3:20 PM CARE TECH Plan of Treatment Health Maintenance Due Date Last Done Comments Annual Physical 1995 Hepatitis C 2010 Hepatitis B Vaccines (1 of 3 - 19+ 3-dose series) 2011 COVID-19 Vaccine ( season) 2024 Influenza Adult (#1) 2024 04/23/2022 DTaP, Tdap and Td Vaccines (3 - Td or Tdap) 06/05/2024 06/05/2014, 09/21/1996, 01/03/1993, Additional history exists HPV Vaccines Aged Out No longer eligi ble based on patient's age to complete this topic Meningococcal B Vaccine Aged Out No l onger eligible based on patient's age to complete this topic Meningococcal Vaccine Aged Out No arron madyson eligible based on patient's age to complete this topic Pneumococcal Vaccine: Pediatrics (0 to 5 Years) and At-Risk Patients (6 to 64 Years) Aged Out No longer eligible based on patient's age to complete this topic RSV Immunizations Under 20 Months Aged Out No longer eligible based on patient's age to complete this topic Procedures Procedure Name Priority Date/Time Associated Diagnosis Comments CTA CHEST PE PROTOCOL STAT 05/22/2024 7:17 PM CARE TECH ECG 12-LEAD STAT 05/22/2024 5:54 PM CARE TECH PRO-BRAIN NATRIURETIC PEPTIDE Routine 05/22/2024 5:28 PM CARE TECH D-DIMER, QUANTITATIVE Routine 05/22/2024 5:22 PM CARE TECH TROPONIN, QUANT STAT 05/22/2024 5:22 PM CARE TECH TROPONIN, QUANT STAT 05/22/2024 3:47 PM CARE TECH COMPREHENSIVE METABOLIC PANEL STAT 05/22/2024 3:47 PM CARE TECH CBC W/DIFF AUTOMATED STAT 05/22/2024 3:47 PM CARE TECH XR CHEST PORTABLE STAT 05/22/2024 3:3 4 PM CARE TECH ECG 12-LEAD STAT 05/22/2024 3:26 PM CARE TECH from Last 3 Months Results * CTA CHEST PE PROTOCOL (05/22/2024 7:17 PM CARE TECH) Anatomical Region Laterality Modality Chest Computed Tomogra phy 05/22/2024 7:47 PM CARE TECH Impressions 05/22/2024 8:00 PM CARE TECH IMPRESSION: 1. No evidence of pulmonary embolism identified. Technically limited evaluation for tiny subsegmental emboli. 2. No evidence of pneumonia. 3. Mildly enlarged left hilar and mediastinal lymph nodes, new from the prior exam and indeterminate, as above. Referred By: Interpreted By: Gokul Oh MD, 05/22/2024 7:47 PM Narrative 05/22/2024 8:00 PM CARE TECH [address] [address] Examination: CTA CHEST PE PROTOCOL Clinical history: Tachycardia Comparison: 03/27/2019 DATE/TIME: 05/22/2024 6:52 PM Technique: Multiplanar images of the chest were obtained following the uneventful intravenous administration of 100 mL Isovue 370. 3D Post-processed images were reconstructed on an independent workstation. A dose lowering technique was used for this procedure, which may include, but is not limited to, dose reduction technique, automated exposure control, the use of iterative reconstruction, and ALARA (As Low As Reasonably Achievable) / Image Gently techniques. Findings: No evidence of central, lobar or segmental pulmonary embolism. Opacification of peripheral pulmonary artery branches limits evaluation for tiny subsegmental pulmonary emboli. Heart size is normal. Thoracic aorta is normal caliber. There are mildly enlarged left hilar and left prevascular mediastinal lymph nodes measuring up to 1.4 cm short axis, new from the prior exam and of uncertain etiology/significance. Would recommend either further evaluation with PET/CT or short-term follow-up CT, for example in 3 months time. No pericardial effusion. Accessory azygous lobe, anatomic variant. No evidence of pneumonia or pulmonary edema. No pleural effusion or pneumothorax. Esophagus is decompressed and not well evaluated. No acute osseous abnormality or destructive bone lesion. Procedure Note Gokul Oh MD - 05/22/2024 [facility] [address] [place], [place] [address] Examination: CTA CHEST PE PROTOCOL Clinical history: Tachycardia Comparison: 03/27/2019 DATE/TIME: 05/22/2024 6:52 PM Technique: Multiplanar images of the chest were obtained following theuneventful intravenous administration of 100 mL Isovue 370. 3DPost-processed images were reconstructed on an independent workstation. Adose lowering technique was used for this procedure, which may include,but is not limited to, dose reduction technique, automated exposurecontrol, the use of iterative reconstruction, and ALARA (As Low AsReasonably Achievable) / Image Gently techniques. Findings: No evidence of central, lobar or segmental pulmonary embolism.Opacification of peripheral pulmonary artery branches limits evaluationfor tiny subsegmental pulmonary emboli. Heart size is normal. Thoracicaorta is normal caliber. There are mildly enlarged left hilar and leftprevascular mediastinal lymph nodes measuring up to 1.4 cm short axis, newfrom the prior exam and of uncertain etiology/significance. Wouldrecommend either further evaluation with PET/CT or short-term follow-upCT, for example in 3 months time. No pericardial effusion. Accessory azygous lobe, anatomic variant. No evidence of pneumonia orpulmonary edema. No pleural effusion or pneumothorax. Esophagus isdecompressed and not well evaluated. No acute osseous abnormality or destructive bone lesion. IMPRESSION: 1. No evidence of pulmonary embolism identified. Technically limitedevaluation for tiny subsegmental emboli. 2. No evidence of pneumonia. 3. Mildly enlarged left hilar and mediastinal lymph nodes, new from theprior exam and indeterminate, as above. Referred By: Interpreted By: Gokul Oh MD, 05/22/2024 7:47 PM Nuno Persaud DO CT Final Result * ECG 12 lead (05/22/2024 5:54 PM CARE TECH) Only the most recent of2 resultswithin the time period is included. 05/22/2024 5:54 PM CARE TECH Narrative [facility] - 05/22/2024 11:[address] 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 Test Date: 2024-05-22 Pat Name: [facility] Department: 41 Room: EXAM16 Gender: Male Peat Shredder Tender: [id number] : 1990 Requested By: JUSTINE NEWTON Order Number: [id number] Reading MD: Kyree Whalen Measurements Intervals [place] Rate: 93 P: 43 [place]: 156 QRS: -11 QRSD: 121 T: 50 QT: 346 QTc: 432 Interpretive Statements SINUS RHYTHM MODERATE INTRAVENTRICULAR CONDUCTION DELAY [110+ ms QRS DURATION] Compared to ECG 05/22/2024 15:26:09 Intraventricular conduction delay now present Sinus tachycardia no longer present Left anterior fascicular block no longer present TECH Justine BENNETT ECG ORDERABLES Final Resul t [facility] ([place]) RAD * PRO-BRAIN NATRIURETIC PEPTIDE (05/22/2024 5:28 PM CARE TECH) PRO-B TYPE NATRIURETIC PEPTIDE 10 <125 PG/ML 05/22/2024 5:54 PM CARE TECH [facility] Comment: CUT POINTS ESTABLISHED BY [employer]NATIONAL [employer] ON NT PROBNP (ICON) STUDY (2006). AGE INDEPENDENT: <300 PG/ML HAS A 99% NEGATIVE PREDICTIVE VALUE FOR EXCLUDING ACUTE CHF <50 YEARS: >450 PG/ML IS CONSISTENT WITH ACUTE CHF 50-75 YEARS: >900 PG/ML IS CONSISTENT WITH ACUTE CHF >75 YEARS: >1800 PG/ML IS CONSISTENT WITH ACUTE CHF IN PATIENTS WITH RENAL INSUFFICIENCY (GFR <60), >1200 PG/ML YIELDS A DIAGNOSTIC SENSITIVITY AND SPECIFICITY OF 89% AND 72% FOR ACUTE CHF. 05/22/2024 5:28 PM CARE TECH Nuno Persaud DO LABORATORY Final Result Performing Organization Address City/[facility]/ZIP Co de Phone Number [facility] [address] [place] [address], [place] [phone] * (ABNORMAL) D-DIMER, QUANTITATIVE (05/22/2024 5:22 PM CARE TECH) D-DIMER 2,610(HH) 0 - 500 ng{FEU}/mL 05/22/2024 6:12 PM CARE TECH [facility] Comment: D-Dimer values less than or equal to 500 ng/mL FEU have a negative predictive value of >95% for exclusion of deep vein thrombosis and pulmonary embolism. In patients over 50 (who tend to have higher normal baseline D-Dimer values), recent studies suggest age-adjusted D-Dimer cutoff values (calculated as: age [years] x 10 ng/mL) result in equivalent outcomes and no additional false negative findings. Successful Call: DDIMR called 05/22/2024 06:13 PM to EMERGENCY ROOM ([id number]/[place]) by [id number]. Read Back: Yes 05/22/2024 5:22 PM CARE TECH Nuno Persaud DO LABORATORY Final Result Performing Organization Address City/[facility]/ZIP Co de Phone Number [facility] [address] [place] [id number], * TROPONIN, QUANT (05/22/2024 5:22 PM CARE TECH) Only the most recent of2 resultswithin the time period is included. [facility] TROPONIN I HIGH SENSITIVITY <3 <79 ng/L 05/22/2024 5:59 PM CARE TECH [facility] Comment: HIGH DOSES OF BIOTIN, TROPONIN-SPECIFIC AUTOANTIBODIES, AND ANTIBODY THERAPY CONTAINING HAMA MAY INTERFERE WITH THIS TEST RESULT. CORRELATION TO CLINICAL HISTORY AND PRESENTATION RECOMMENDED. 05/22/2024 5:22 PM CARE TECH Justine Newton PA LABORATORY Final Resul t Performing Organization Address City/[facility]/ZIP Co de Phone Number [facility] [address] [place] [phone], * (ABNORMAL) COMPREHENSIVE METABOLIC PANEL (05/22/2024 3:47 PM CARE TECH) Pathologist [facility] GLUCOSE 108(H) 70 - 99 MG/DL 05/22/2024 4:24 PM CARE TECH [facility] BUN 11 7 - 18 MG/DL 05/22/2024 4:24 PM CARE TECH [facility] CREATININE S/P/B 1.01 0.7 - 1.3 MG/DL 05/22/2024 4:24 PM CARE TECH [facility] SODIUM S/P/B 135(L) 136 - 145 MMOL/L 05/22/2024 4:24 PM [facility] POTASSIUM S/P/B 4.0 3.5 - 5.1 MMOL/L 05/22/2024 4:24 PM [facility] CHLORIDE S/P/B 104 97 - 115 MMOL/L 05/22/2024 4:24 PM [facility] CO2 26.8 21 - 32 MMOL/L 05/22/2024 4:24 PM [facility] CALCIUM S/P/B 9.5 8.5 - 10.1 MG/DL 05/22/2024 4:24 PM [facility] BILIRUBIN TOTAL S/P/B 0.3 0.2 - 1.2 MG/DL 05/22/2024 4:24 PM [facility] Comment: THIS ASSAY IS NOT RECOMMENDED FOR PATIENTS UNDERGOING TREATMENT WITH ELTROMBOPAG DUE TO THE POTENTIAL FOR FALSELY ELEVATED RESULTS. TOTAL PROTEIN S/P/B 8.3(H) 6.4 - 8.2 G/DL 05/22/2024 4:24 PM [facility] ALBUMIN S/P/B 3.7 3.4 - 5.0 G/DL 05/22/2024 4:24 PM [facility] AST 28 15 - 37 U/L 05/22/2024 4:24 PM [facility] ALT 47 16 - 60 U/L 05/22/2024 4:24 PM [facility] ALKALINE PHOSPHATASE S/P/B 76 50 - 136 U/L 05/22/2024 4:24 PM [facility] ANION GAP 4.2 2 - 10 MMOL/L 05/22/2024 4:24 PM [facility] BUN CREATININE RATIO 10.9 6 - 26 05/22/2024 4:24 PM [facility] A/G RATIO 0.8(L) 1.0 - 2.0 RATIO 05/22/2024 4:24 PM [facility] GFR ESTIMATE >90 >90 ML/MIN/1.7 3 M2 05/22/2024 4:24 PM [facility] Comment: NOTE: eGFR is not calculated for patients <18 years of age or gender unknown. This is an estimated GFR calculation using the new CKD EPI creatinine equation without race and so does not require a correction factor for race. This estimated GFR should not be used for calculating drug doses. 05/22/2024 3:47 PM CARE TECH Justine BENNETT LABORATORY Final Resul t [facility] [address] [place] [address], * (ABNORMAL) CBC W/DIFF AUTOMATED (05/22/2024 3:47 PM CARE TECH) WBC 8.95 4.5 - 11.0 x10'3/uL 05/22/2024 4:06 PM [facility] RBC 5.93 4.70 - 6.10 x10'6/uL 05/22/2024 4:06 PM [facility] HGB 16.5 14.0 - 18.0 G/DL 05/22/2024 4:06 PM [facility] HCT 48.6 43.0 - 54.0 % 05/22/2024 4:06 PM [facility] MCV 82.0 80.0 - 94.0 FL 05/22/2024 4:06 PM [facility] MCH 27.8 27.0 - 31.0 PG 05/22/2024 4:06 PM [facility] MCHC 34.0 32.0 - 36.0 G/DL 05/22/2024 4:06 PM [facility] RDW 13.1 11.5 - 14.5 % 05/22/2024 4:06 PM [facility] PLT 418(H) 130 - 400 x10'3/uL 05/22/2024 4:06 PM [facility] MPV 9.8 9.3 - 12.2 FL 05/22/2024 4:06 PM [facility] DIFFERENTIAL TYPE AUTOMATED DIFFERENTIAL 05/22/2024 4:06 PM [facility] NEUTROPHILS % 63.8 % 05/22/2024 4:06 PM [facility] LYMPHOCYTES % 24.8 % 05/22/2024 4:06 PM [facility] MONOCYTES % 7.4 % 05/22/2024 4:06 PM [facility] EOSINOPHILS 3.2 % 05/22/2024 4:06 PM [facility] BASOPHILS 0.4 % 05/22/2024 4:06 PM [facility] IMMATURE GRANS % 0.4 % 05/22/20 4:06 PM [facility] ABS. NEUTROPHILS 5.70 1.80 - 7.70 x10'3/uL 05/22/2024 4:06 PM [facility] ABS. LYMPHOCYTES 2.22 1.00 - 4.80 x10'3/uL 05/22/2024 4:06 PM [facility] ABS. MONOCYTES 0.66 0.30 - 0.82 x10'3/uL 05/22/2024 4:06 PM [facility] ABS. EOSINOPHILS 0.29 0.04 - 0.54 x10'3/uL 05/22/2024 4:06 PM [facility] ABS. BASOPHILS 0.04 0.01 - 0.08 x10'3/uL 05/22/2024 4:06 PM CARE TECH [facility] ABS. IMMATURE GRANULOCYTES 0.04 0.00 - 0.49 x10'3/uL 05/22/2024 4:06 PM CARE TECH [facility] 05/22/2024 3:47 PM CARE TECH Justine BENNETT LABORATORY Final Resul t [facility] [address] [place] [address], * XR CHEST PORTABLE (05/22/2024 3:34 PM CARE TECH) Anatomical Region Laterality Modality Chest Radiographic Lien ging 05/22/2024 3:34 PM CARE TECH Impressions 05/22/2024 3:35 PM CARE TECH IMPRESSION: Prominence of pulmonary vascular pattern which may be seen with pulmonary vascular congestion. Referred By: Interpreted By: Ac Asher MD, 05/22/2024 3:34 PM Narrative 05/22/2024 3:35 PM CARE TECH [address] [address] EXAMINATION: XR CHEST PORTABLE, 05/22/2024 3:34 PM TECHNIQUE: Upright AP portable radiograph of the chest HISTORY: Palpitations, intermittent headache COMPARISON: Chest radiograph 05/16/2021 FINDINGS: Heart size is normal. Prominence of pulmonary vascular pattern. Azygos lobe. No focal bony consolidation. No pleural effusion. No pneumothorax. Procedure Note Ac Asher MD - 05/22/[address] [place], [place] [address] EXAMINATION: XR CHEST PORTABLE, 05/22/2024 3:34 PM TECHNIQUE: Upright AP portable radiograph of the chest HISTORY: Palpitations, intermittent headache COMPARISON: Chest radiograph 05/16/2021 FINDINGS: Heart size is normal. Prominence of pulmonary vascular pattern.Azygos lobe. No focal bony consolidation. No pleural effusion. Nopneumothorax. IMPRESSION: Prominence of pulmonary vascular pattern which may be seen with pulmonaryvascular congestion. Referred By: Interpreted By: Ac Asher MD, 05/22/2024 3:34 PM Justine BENNETT [facility] Final Resul t from Last 3 Months Care Teams Machine Heddle Cleaner Relationship Specialty Start Date End Date None, Provider, PCP - General UNKNOWN PHYSICIAN SPECIALTY 02/04/24
[2024-07-19 19:21] LABS: Basophils Percent Auto 0.3 % (0.2-1.2); Eosinophils Absolute Auto 0.4 K/mm3 (0-0.3); Eosinophils Percent Auto 4.5 % (0-4.4); Hemoglobin 15.4 g/dL (14.0-18.0); Immature Granulocyte Absolute 0.05 K/mm3 (0.00-0.031); Immature Granulocyte Percent A 0.6 % (0-0.5); Lymphocytes Absolute Auto 2.41 K/mm3 (0.9-3.2); Mean Corpuscular HGB Conc 33.5 g/dl (32-36); Mean Corpuscular Hemoglobin 28.5 pg (26-34); Mean Platelet Volume 10.3 fl (7.4-10.4); Monocytes Absolute Auto 0.6 K/mm3 (0.1-0.6); Monocytes Percent Auto 7.2 % (2.6-8.5); Neutrophils Absolute Auto 5.1 K/mm3 (1.3-6.7); Neutrophils Percent Auto 59.4 % (45.5-73.1); Platelet Count Result 320 k/mm3 (150-375); Red Blood Count 5.41 M/mm3 (4.6-6.20); Red Cell Distribution Width 13.4 % (11.5-14.5); White Blood Count 8.6 K/mm3 (4.5-10.0)
[2024-07-19 19:30] LABS: Alanine Aminotransferase 43 U/L (6-50); Albumin Level 4.8 g/dL (3.5-5.1); Alkaline Phosphatase 75 U/L (38-126); Anion Gap 11 mmol/L (4-12); Aspartate Amino Transferase 51 U/L (17-59); Blood Urea Nitrogen 11 mg/dL (9-20); Calcium 9.7 mg/dL (8.4-10.2); Carbon Dioxide 25 mmol/L (22-30); Chloride 102 mmol/L (98-107); Cholesterol 182 mg/dL (0-200); Estimated Glomerular Filt Rate > 60; Glucose 81 mg/dL (65-110); HDL Direct 46 mg/dL; Potassium 4.2 mmol/L (3.4-5.0); Sodium 138 mmol/L (137-145); Triglycerides 76 mg/dL (<150)
[2024-07-19 19:36] LABS: LDL Cholesterol Direct 100 mg/dL
[2024-07-19 19:54] LABS: Thyroid Stimulating Hormone 0.833 uIU/mL (0.465-4.680)
[2024-07-19 22:03] LABS: Hemoglobin A1C 5.4 % (<5.7)
== END 2024-07-19 15:53 | disposition home or self-care (01) ==
LOC: ANHBWCLAB 15:53
PROVIDERS: PCP Nurse Practitioner Adult Health; Visit Provider Nurse Practitioner Adult Health
DX: E66.01 Morbid (severe) obesity due to excess calories (principal); Z68.43 Body mass index [BMI] 50.0-59.9, adult; Z13.9 Encounter for screening, unspecified
CPT/HCPCS: 36415; 80053; 80061; 83036; 84443; 85025

== ENCOUNTER 2024-08-15 12:41 | Outpatient (CLI) | payer BC, SELFPAY ==
--- NOTE | ~2024-08-15 | US_ITS ---
EXAMINATION: US scrotum doppler DATE: 08/15/2024 13:03 INDICATION: Other specified disorders of the male genitalia. Right scrotal lump. TECHNIQUE: Grayscale and Doppler ultrasound images of the testes were obtained. COMPARISON: None. FINDINGS: The right testis measures 3.9 x 3.6 x 2.6 cm. The left testis measures 4.6 x 3.5 x 2.6 cm. There is normal vascular flow to both testes. The right epididymis is normal with normal vascular molly w. The left epididymis is normal with normal vascular flow. There are multiple cysts inferior to righ t testis measuring up to 8 mm. There is no varicocele or hydrocele. IMPRESSION: 1. Multiple benign cysts inferior to right testis. Reviewed, dictated and finalized at location A.
== END 2024-08-15 12:42 | disposition home or self-care (01) ==
LOC: GOSHIMG 12:41
PROVIDERS: PCP Nurse Practitioner Adult Health; Visit Provider Nurse Practitioner Adult Health
DX: N44.2 Benign cyst of testis (principal)
CPT/HCPCS: 76870; 93976

== ENCOUNTER 2024-08-24 16:09 | Outpatient (CLI) | payer BC, SELFPAY ==
--- NOTE | ~2024-08-24 | XR_ITS ---
Right Hand Technique: PA and lateral views were obtained. Clinical History: Pain Findings: No acute fracture or dislocation is seen. Osseous alignment is anatomic. Joint spaces are p reserved. Suggestion of soft tissue swelling over the thumb and first interspace region. Impression: No osseous or articular abnormality. Possible soft tissue swelling at the thumb and first interspace region. Correlate with physical exam. Reviewed, dictated and finalized at location . Impression: No osseous or articular abnormality. Possible soft tissue swelling at the thumb and first interspace region. Correla te with physical exam.
--- NOTE | ~2024-08-24 | XR_ITS ---
Right wrist Technique: PA and lateral views were obtained. Clinical History: Pain Findings: No acute fracture or dislocation is seen. Osseous alignment is anatomic. Joint spaces are p reserved. Soft tissues are unremarkable. Impression: Unremarkable right wrist radiographs. Reviewed, dictated and finalized at location M. Impression: Unremarkable right wrist radiographs.
== END 2024-08-24 16:10 | disposition home or self-care (01) ==
LOC: ANHBWCIMG 16:11
PROVIDERS: PCP Nurse Practitioner Adult Health; Visit Provider Nurse Practitioner Adult Health
DX: M79.641 Pain in right hand (principal)
CPT/HCPCS: 73100; 73120

== ENCOUNTER 2024-09-07 17:16 | Observation (INO) | payer BC, SELFPAY ==
[2024-09-07] VITALS (9 sets, daily range): BP systolic 95–160; BP diastolic 40–139; PULSE 64–105; RESP 14–25; TEMP 36.4–36.7; O2SAT 95–100; BMI 54.1
--- NOTE | ~2024-09-07 | CT_ITS ---
CTA chest abdomen pelvis Ordering provider: Nithya Laurent MD History: . pain LUQ to back, n/v, elevated Cr, hypotension. . Comparison: None. Technique: CT angiogram chest, abdomen and pelvis was performed following timed intravenous injection of contrast. Thin slice axial images and reformatted coronal images were obtained. Three dimensional reformatted images of the chest were also obtained using a [employer] workstation. Radiation reduction t echnique utilized. The dose-length product was 4625.53 mGy-cm. 100 mL Omnipaque 350 was given IV. FINDINGS: CHEST: --THORACIC AORTA: Normal. No aneurysm, dissection or mediastinal hematoma. --GREAT VESSELS: Normal as visualized. --PULMONARY ARTERIES: No pulmonary embolus. --VISUALIZED THORACIC INLET: Normal. --MEDIASTINUM: Coronary arteries: Normal.. Heart/other: The heart is not enlarged. Lymph nodes: No mediastinal adenopathy. Bilateral hilar lymphadenopathy --LUNGS: No pulmonary nodules or masses. No infiltrates or effusions. No pneumothorax. Dependent atelectatic c hanges. --MUSCULOSKELETAL: Superficial soft tissues: The superficial soft tissues are normal. Bones: Mild degenerative changes of the spine. ABDOMEN/PELVIS: --MUSCULOSKELETAL: Bones: Mild degenerative changes of the spine. Superficial soft tissues: Bilateral fat containing inguinal hernias. Otherwise, The superficial soft tissues are normal. --UPPER ABDOMINAL ORGANS: Liver: Fat infiltration. Gallbladder: Contracted. Spleen: Normal. Stomach/duodenum: Sliding hiatus hernia. Pancreas: Normal. Adrenals: Possible fat-containing lesion measuring 1.3 cm in the left adrenal gland. Kidneys: Small cyst in the left kidney upper pole measuring 1.3 cm. --PELVIC ORGANS: The bladder is normal. No bladder stones. Contrast is seen in the urinary bladder. --BOWEL AND MESENTERY: Colon: No evidence of diverticulitis.. Appendix is not demonstrated. Small Bowel: Normal. No obstruction. Peritoneum/mesentery: No free air or free fluid. No mesenteric lymphadenopathy. --RETROPERITONEUM: No retroperitoneal lymphadenopathy. --ARTERIES: ABDOMINAL AORTA: Normal. No aneurysm or dissection. RENAL ARTERIES: Normal. CELIAC AXIS: Normal. SMA: Normal. BETHANY: Normal. ILIAC AND VISUALIZED FEMORAL ARTERIES: Normal. MESENTERIC ARTERIES: Normal. IMPRESSION: CHEST: 1. No evidence of dissection or pulmonary embolism. 2. No acute cardiopulmonary pathology. ABDOMEN/PELVIS: 1. No evidence of appendicitis, diverticulitis or intestinal obstruction. 2. No aortic dissection seen. 3. Small sliding hiatus hernia. 4. Fat infiltration of the liver. 5. Bilateral fat containing inguinal hernias Reviewed, dictated and finalized at location A.
--- OUTSIDE RECORDS SUMMARY | 2024-09-07 17:19 | XMS_ITS | Clinical Summary ---
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
--- OUTSIDE RECORDS SUMMARY | 2024-09-07 17:19 | XMS_ITS | Referral Summary ---
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
--- OUTSIDE RECORDS SUMMARY | 2024-09-07 17:19 | XMS_ITS | Clinical Summary ---
Author Organization [facility] Address [facility] [place] [address] Care Team Providers Care Call Center Associate Name Role Phone None, Provider MD Primary Care Provider Unavaila ble Allergies Active Allergy Reactions Criticality Noted Date Comments Amoxicillin Unknown 10/26/2023 Dexlansoprazole Diarrhea,GI Upset,Vomiting High 01/23 Tramadol Other (see comment) Low 10/29/2021 Anger Medications HYDROcodone-juan luis taminophen 5-325 MG tabletIndicatio ns:Acute Pain < 7 Day Supply Take 1-2 tablets by mouth every 6 (six) hours as needed. Indications: Acute Pain < 7 Day Supply 10 tablet 06/25/2020 Active lisinopril (PRINIVIL) 20 MG tablet Take 1 tablet (20 mg total) by mouth daily. 30 tablet 1 02/04/2024 Active pantoprazole EC (PROTONIX) 40 MG tablet Take 1 tablet every day by oral route. Active sertraline (ZOLOFT) 50 MG tablet Take 1 tablet every day by oral route. Active predniSONE (DELTASONE) 20 MG tablet Take 3 tablets daily for 3 days then take 2 tablets daily for 3 days then take 1 tablet daily for 3 days then stop 18 tablet 07/29/2024 Active Active Problems Problem Noted Date Diagnosed Date Fever 09/08/2018 Acute low back pain without sciatica, unspecified back pain laterality 08/19/2018 GERD (gastroesophageal reflux disease) 8 Sleep apnea 10/19/2014 Hypertension 11/21/2013 Resolved Problems Problem Noted Date Diagnosed Date Resolved Date Encounter for preventive health examination 02/09/2012 02/03/2020 Encounters Date Type Department Care Team Description 07/29/2024 5:13 PM BUSINESS MACHINES TEACHER - 07/29/2024 5:45 PM BUSINESS MACHINES TEACHER Hospital Encounter [facility] [address] [place] [address] Adore Coleman, RAPHAEL Cough; Wrist Pain Discharge Disposition: Home or Self Care (Routine Discharge) 07/29/2024 Travel from Last 3 Months Immunizations Immunization Administration Dates Next Due Hepatitis A (Generic) [...] Information Value Date Recorded Sex Assigned at Male 07/29/2024 4:51 PM BUSINESS MACHINES TEACHER Legal Sex Male 5:47 PM CDT Gender Identity Not on file Sexual Orientation Not on file Last Filed Vital Signs Vital Sign Reading Time Taken Comments Blood Pressure 148/94 07/29/2024 5:17 PM BUSINESS MACHINES TEACHER Pulse 86 07/29/2024 5:17 PM BUSINESS MACHINES TEACHER Temperature 37.1 C (98.7 F) 07/29/2024 5:17 PM BUSINESS MACHINES TEACHER Respiratory Rate 18 07/29/2024 5:17 PM BUSINESS MACHINES TEACHER Oxygen Saturation 98% 07/29/2024 5:17 PM BUSINESS MACHINES TEACHER Inhaled Oxygen Concentration - - Weight 192.8 kg (425 lb) 07/29/2024 5:17 PM BUSINESS MACHINES TEACHER Height 190.5 cm (6' 3 ) 07/29/2024 5:17 PM BUSINESS MACHINES TEACHER Body Mass Index 53.12 07/29/2024 5:17 PM BUSINESS MACHINES TEACHER Plan of Treatment Health Maintenance Due Date Last Done Comments Annual Physical 1995 Hepatitis C 2010 Hepatitis B Vaccines (1 of 3 - 19+ 3-dose series) 2011 COVID-19 Vaccine ( season) 2024 DTaP, Tdap and Td Vaccines (3 - [...] 5 Years) and At-Risk Patients (6 to 49 Years) Aged Out No longer eligible based on patient's age to complete this topic RSV Immunizations Under 20 Months Aged Out No longer eligible based on patient's age to complete this topic Procedures Procedure Name Priority Date/Time Associated Diagnosis Comments CORONAVIRUS (COVID 19) STAT 07/29/2024 5:23 PM BUSINESS MACHINES TEACHER from Last 3 Months Results * CORONAVIRUS (COVID 19) (07/29/2024 5:23 PM BUSINESS MACHINES TEACHER) CORONAVIRUS SARS COV 2 RNA NEGATIVE NEGATIVE 07/29/2024 5:38 PM BUSINESS MACHINES TEACHER [facility] Comment: NEGATIVE RESULTS DO NOT RULE OUT COVID 19 AND SHOULD NOT BE USED THE SOLE BASIS FOR TREATMENT OR PATIENT MANAGEMENT DECISIONS, INCLUDING INFECTION CONTROL DECISIONS. NEGATIVE RESULTS SHOULD BE CONSIDERED IN THE CONTEXT OF A PATIENT'S RECENT EXPOSURES, HISTORY AND THE PRESENCE OF CLINICAL SIGNS AND SYMPTOMS CONSISTENT WITH COVID 19. THE ID NOW COVID-19 2.0 TEST HAS BEEN AUTHORIZED BY THE FDA UNDER EAU FOR USE BY AUTHORIZED LABORATORIES. PERFORMED BY NUCLEIC ACID AMPLIFICATION FOR MOLECULAR QUALITATIVE DETECTION OF SARS-COV-2. SPECIMEN TYPE NASAL 07/29/2024 5:23 PM BUSINESS MACHINES TEACHER [facility] NASAL STRUCTURE / Unknown 07/29/2024 5:23 PM BUSINESS MACHINES TEACHER us Adore Coleman [employer] MICROBIOLOGY - GENERAL O RDERABLES Final Result [facility] [facility] [place] [address], [place] from Last 3 Months Insurance [facility] Care Teams Call Center Associate Relationship Specialty Start Date End Date None, Provider, MD PCP - General UNKNOWN PHYSICIAN SPECIALTY 07/29/24
--- OUTSIDE RECORDS SUMMARY | 2024-09-07 17:19 | XMS_ITS | Data Portability ---
Author Organization [place] [employer], Main Office Address [address] [place] [address] Care Team Providers Care Pressroom Supervisor Name Role Phone JANNET BELTRAN Primary Care Provider [phone] JANNET BELTRAN Referring Provider [phone] Assessment Encounter Date Assessment Date Assessment LastModified by Organization Details LastModified Time 09/18/2022 09/18/2022 Assessment: Mod OSAHS, AHI = 26 Plan: The following were reviewed and explained to the patient: primary care/referral note [facility] home sleep study 05/05/22 AHI = 26, supine AHI = 29 [facility] titration sleep study 09/02/22 ResMed medium AirFit P10 nasal pillows @ 9 cmH2O Educated the patient on problems and solutions associated with positive airway pressure (PAP) use. Difficulty tolerating pressure, mask leaks, intolerance of interface, nasal congestion, claustrophobic response, dry mouth, and unintentional mask removal during sleep were covered. Patient experiences claustrophobic response. Patient will practice wearing PAP mask daily while awake and undergo PAP desensitization. We will check fit of patient's mask and provide a sleeker alternative as necessary. Dry mouth is a normal occurrence for people who just start out on PAP therapy because they are not used to air blowing in to the throat to hold open. Dry mouth is exacerbated for people who wear nasal PAP mask and whose jaw drops open during sleep. Not only does this create a much less efficient therapy because of leakage, it also causes dry mouth. There are a couple solutions to help prevent this type of problem. A simple solution would be to wear a chinstrap which essentially holds the jaw in place. A second solution would be a switch to a full face mask which covers both the nose and mouth. Although this is another easy solution, using a full face mask for some could seem claustrophobic or confining. There is no silver bullet solution as no single mask is right for everybody. Sometimes it takes a bit of experimentation to find a PAP mask which best meets the patient's needs as well as fits comfortably. Another tactic is to use a humidifier on your PAP machine. Most new PAP machines have integrated humidifiers. Humidification is antony when dealing with symptoms of dry mouth because the humidifier can supply both warm and room temperate air. Even a small amount of humidity in the airflow will help nasal passages to stay hydrated. If a person is using both a full face mask and a PAP machine with a heated humidifier and is still experiencing dry mouth, an ill-fitted PAP mask might be causing the problem. Leakage can be caused by a mask that is to large or small, the wrong style mask, the cushion is degraded or simply because the mask's straps aren't adjusted correctly. If leakage occurs, dry air from the room can leak in while humidification escapes. The result is reduced humidification within the circuit and resulting in dry throat and mouth. Finally, beyond factors involving the PAP machine and mask, dry mouth can also be caused or worsened by dehydration. The general recommendation to during eight 8 oz. glasses of water a day might be too little for many people. When people drink large amounts of coffee or other caffeine beverages, or sweat a lot during the day, making sure to rehydrate is an important part of PAP therapy. ResMed Air Sense 11 auto set unit with heated humidifier, ResMed medium AirFit P10 nasal pillows and supplies at 9 cmH2O ordered. Further titration will be based on clinical response. Provided the patient with a list of local home care stores where positive airway pressure (PAP) units, accouterments, and services are available. Home care store selection is based on patient's insurance carrier. Patient will setup an appointment with [facility] for supplies and pressure adjustments. A major predictor of success with use of PAP is follow-up with both the respiratory supplier and the treating physician. The respiratory supplier optimally will follow-up within two weeks after starting use while the treating physician optimally will follow-up within 90 days after starting therapy to assess adherence and effectiveness of treatment. The download results can show the treating physician information about adherence to treatment, residual AHI while on treatment and presence of large mask leakage. This information is especially helpful if the patient has residual sleepiness despite treatment. General information on sleep disordered breathing, evaluation of sleep disordered breathing, treatment with PAP therapy, and living with PAP therapy were covered. We discussed with the patient the impact of weight on: Sleep disordered breathing Hypertension Hyperlipidemia Prediabetes MARTHA We discussed with the patient the benefit of PAP therapy on: Sleep disordered breathing Depression/Anxiety /ADHD Rhinitis Hypertension Prediabetes MARTHA Educated the patient on sleep hygiene measures. Relaxing rituals to rest easy, understanding foods with positive and negative impact on sleep, creating a peaceful sleep environment, timing of exercise, using herbal sleep aids, and practicing sleep-friendly meditation were covered. To determine how much sleep is needed, the patient will assess where he falls on the spectrum, examine what lifestyle factors such as work schedules and stress are affecting the quality and quantity of sleep. In general, adults need 7-9 hours of sleep. Educated the patient regarding foods that promote sleep. These include but are not limited to cherries, bananas, toast, oatmeal, and warm milk. Educated the patient regarding foods and drinks to avoid before bedtime. These include but are not limited to aged cheese, chocolate, spicy foods, tomato-based sauces, soy, ginseng tea and processed meat. Advocated influenza vaccination annually and pneumonia vaccination ESTEVAN. Advocated weight loss through diet and exercise. Patient's ideal body weight according to height and gender is up to 215 lbs. Encouraged patient to adjust caloric intake to maintain/achieve ideal body weight, emphasizing on fruits, vegetables, whole grains, and fat-free or low-fat products. These include lean meats, poultry, fish, beans, eggs, and nuts and foods that are low in saturated fats, trans-fats, cholesterol, salt (sodium), and glycemic index. Stressed the importance of regular exercise up to the patient's capacity limits. In this case, we recommend 20 min daily walking, 2 days a week of resistance training. Patient to monitor BP daily and bring records to PCP for further management. Follow-up: 3 months, November 2022 [email or web address] Not available 09/18/2022 13:12:12 Plan of Treatment Reminders Order Date Submit Date Provider Last Modified By Organization Details Last Modified Time Details Appointments None recorded. Lab None recorded. Referral None recorded. Procedures None recorded. Surgeries None recorded. Imaging None recorded. Medication Orders famotidine 40 mg tablet 2022 023 [facility], [address] [place], [address], 3 15:52:12 Patient TargetsNo targets recorded. Patient InstructionsNo instructions recorded. Reason for Referral None Reported. Results Created Date Observation Date Name Description Value Unit Range Abnormal Flag Note LastModifiedBy Organization Detail LastModifiedTime 05/08/20 22 05/05/2022 home sleep study No observ ation record ed. [id number] [facility] [address] [place], [address], 07/23/2022 10:48:24 06/11/19 23 06/11/2022 XR, knee, 3 view No observ ation record ed. [id number] [email or web address] [address], [place], [address], 07/23/2022 10:48:24 09/16/19 23 09/02/2022 polys omnog lindsay, titra tion study No observ ation record ed. [email or web address] Not Available 09/16 13:15:12 09/30/19 23 09/02/2022 polys omnog lindsay No observ ation record ed. [email or web address] [facility] [address] [place], [address], 10/06/2022 13:08:56 Result Notes None recorded. Problems Name Problem SNOMED Code Status Onset Date Resolution Date Notes Provider Name and Address Organization Details Recorded Time Hypertensive disorder 77173491 Active 2019 Not Available [facility] 3 10:44:45 Attention deficit hyperactivity disorder 705736819 Active 2020 Not Available [facility] 3 10:44:45 Acid reflux 244753641 Active 2019 Not Available [facility] 3 10:44:45 Pneumonia 407044479 Active 2022 DONALD Winslow [address] [facility], [facility] [address], [place], [address] , [facility] [employer] [facility] 3 15:42:24 Gastroesophag eal reflux disease 285163465 Active 2022 DONALD Winslow [address] [address], [place], [address] , [facility] [employer] [facility] [employer] [facility] 3 15:48:50 Obstructive sleep apnea syndrome 60113402 Active 2022 Edil Dennison MD [address] [address], [place], [address] , [facility] [employer] [facility] [employer] [facility] 3 13:09:00 Notes:Medical History: Depre ssion/Anxiety/ADHD COVID infection 04/2021 Rhinitis Mild tonsillar hypertrophy Early REM onset Obesity with mod OSAHS, AHI = 26, 05/05/22, on CPAP Hypertension Hyperlipidemia Prediabetes MARTHA Procedure History: None 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 Procedures Surgical History None recorded. Imaging Results Imaging Date Name Status LastModified by Organization Details LastModified Time 05/05/2022 home sleep study completed MIGRATION.0 [id number] 1035 [facility] [address] [place], [address], 07/23/2022 10:48:24 06/11/2022 XR, knee, 3 view completed MIGRATION.0 [id number] 1035 [facility] [address], [place], [address], 07/23/2022 10:48:24 09/02/2022 polysomnogram, titration study completed [email or web address] Information not available 09/16/2022 13:15:12 09/02/2022 polysomnogram completed [email or web address] [facility] [address] [place], [address], 10/06/2022 13:08:56 Procedure Notes None recorded. Medical Equipment None Reported. Allergies Allergen ID Allergen Name Allergen Category Reaction Reaction Severity Criticality Documentation Date Start Date Code Code System Note Provider Name and Address Organization Details Recorded Time 43238 Dexilant medicatio n Not available Not available Not available 07/23/2022 76573 1 RxNorm irreg ular heart ratea ble to take PPI Not Available [employer] 3 10:48:00 22441 amoxicill in medicatio n Not available Not available Not available 09/18/2022 723 RxNorm Britt Hyde MA null, [place] [facility] [place] [facility] 3 12:39:37 Medications Name Sig Start Date Stop Date Status Note LastModified by Organization Details LastModified Time cyclobenzap rine 10 mg tablet 12/17 completed Not Available Not Available Not Available amoxicillin 500 mg capsule 04/22 completed Not Available Not Available Not Available methocarbam ol 500 mg tablet 06/11 completed Not Available Not Available Not Available acetaminoph en 325 mg tablet TAKE 1 TABLET BY MOUTH EVERY 6 HOURS NEEDED 04/22 completed Not Available Not Available Not Available atorvastati n 20 mg tablet Take 1 tablet every day by oral route for 90 days. 06/11 completed Not Available Not Available Not Available clindamycin HCl 300 mg capsule TAKE 1 CAPSULE BY MOUTH EVERY 6 HOURS UNTIL GONE 12/25 completed Not Available Not Available Not Available cetirizine 10 mg tablet 06/11 completed Not Available Not Available Not Available azithromyci n 250 mg tablet TAKE 2 TABLETS (500 MG) BY ORAL ROUTE ONCE DAILY FOR 1 DAY THEN 1 TABLET (250 MG) BY ORAL ROUTE ONCE DAILY FOR 4 DAYS 05/07 completed Not Available Not Available Not Available benzonatate 200 mg capsule Take 1 capsule 3 times a day by oral route as needed. 06/11 completed Not Available Not Available Not Available hydrocodone 5 mg-acetamin ophen 325 mg tablet 12/25 completed Not Available Not Available Not Available meloxicam 15 mg tablet Take 1 tablet every day by oral route. 12/17 completed Not Available Not Available Not Available sucralfate 1 gram tablet TAKE 1 TABLET BY MOUTH 4 TIMES DAILY BEFORE MEAL(S) 12/25 completed Not Available Not Available Not Available famotidine 40 mg tablet Take 1 tablet every day by oral route. active Not Available Not Available No t Available prednisone 20 mg tablet 2 po qday x 5 days with food active Not Available Not Available No t Available moxifloxaci n 400 mg tablet TAKE 1 TABLET BY MOUTH ONCE DAILY FOR 7 DAYS 09/18 completed Not Available Not Available Not Available clobetasol 0.05 % topical cream APPLY A THIN LAYER TO THE AFFECTED AREA(S) BY TOPICAL ROUTE 2 TIMES PER DAY active Not Available Not Available No t Available tramadol 50 mg tablet 04/22 completed Not Available Not Available Not Available dexamethaso ne 2 mg tablet 04/22 completed Not Available Not Available Not Available pantoprazol e 40 mg tablet,adam yed release Take 1 tablet every day by oral route. active Not Available Not Available No t Available naproxen 500 mg tablet,adam yed release 06/11 completed Not Available Not Available Not Available omeprazole 20 mg capsule,del ayed release TK 1 C PO BID ON AN EMPTY STOMACH 08/24 completed Not Available Not Available Not Available lisinopril 20 mg-hydrochl orothiazide 25 mg tablet Take 1 tablet every day by oral route. active Not Available Not Available No t Available ibuprofen 600 mg tablet TAKE 1 TABLET BY MOUTH EVERY 6 HOURS NEEDED 06/11 completed Not Available Not Available Not Available methylpredn isolone 4 mg tablets in a dose pack 12/17 completed Not Available Not Available Not Available albuterol sulfate HFA 90 mcg/actuati on aerosol inhaler 06/11 completed Not Available Not Available Not Available ketoconazol e 2 % topical cream APPLY TO THE AFFECTED AREA(S) BY TOPICAL ROUTE ONCE DAILY 06/11 completed Not Available Not Available Not Available ondansetron 4 mg disintegrat ing tablet DIS ONE T PO Q 8 H PRN 06/11 completed Not Available Not Available Not Available fluticasone propionate 50 mcg/actuati on nasal spray,suspe nsion 06/11 completed Not Available Not Available Not Available sertraline 50 mg tablet Take 1 tablet every day by oral route. active Not Available Not Available No t Available naproxen 500 mg tablet 12/17 completed Not Available Not Available Not Available bupropion HCl XL 300 mg 24 hr tablet, extended release Take 1 tablet every day by oral route. active Not Available Not Available No t Available bupropion HCl XL 150 mg 24 hr tablet, extended release Take 1 tablet every day by oral route. active Not Available Not Available No t Available lisinopril 08/24 completed Not Available Not Available Not Available Vitals Date Recorded Body mass index (BMI) Body height Oxygen saturation Oxygen saturation in Arterial blood by Pulse oximetry Heart rate Body temperature Body weight Systolic blood pressure Diastolic blood pressure Provider Name and Address Organization Details Last Updated DateTime 2 52 kg/m2 190.5 cm 97 % 97 % 79 /min 97.7 [degF] 541068. 43 g 150 mm[Hg] 81 mm[Hg] Not Available [facility] 3 10:43:09 Date Recorded Body mass index (BMI) Body height Body weight Provider Name and Address Organization Details Last Updated DateTime 06/11/2022 52.5 kg/m2 190.5 cm 220586.8 g Not Available [facility] 07/23/2022 10:43:11 Date Recorded Body height Oxygen saturation Oxygen saturation in Arterial blood by Pulse oximetry Heart rate Body temperature Systolic blood pressure Diastolic blood pressure Provider Name and Address Organization Details Last Updated DateTime 3 190.5 cm 99 % 99 % 76 /min 97.6 [degF] 136 mm[Hg] 76 mm[Hg] Not Available [facility] 3 10:43:10 Date Recorded Body height Body mass index (BMI) Body weight Body temperature Heart rate Oxygen saturation Oxygen saturation in Arterial blood by Pulse oximetry Systolic blood pressure Diastolic blood pressure Provider Name and Address Organization Details Last Updated DateTime 3 190.5 cm 52 kg/m2 735510. 43 g 97.2 [degF] 102 /min 96 % 96 % 145 mm[Hg] 100 mm[Hg] Tisha Hobson MA [facility] [employer] [facility] 3 15:29:17 Date Recorded Body height Body mass index (BMI) Body weight Body temperature Heart rate Oxygen saturation Oxygen saturation in Arterial blood by Pulse oximetry Systolic blood pressure Diastolic blood pressure Provider Name and Address Organization Details Last Updated DateTime 3 190.5 cm 54.2 kg/m2 855556. 09 g 97.9 [degF] 91 /min 96 % 96 % 126 mm[Hg] 86 mm[Hg] Britt Hyde MA [facility] [employer] [facility] 3 12:45:41 Date Recorded Heart rate Respiratory rate Provider N eunice and Address Organization Details Last Updated DateTime 09/18/2022 91 /min 15 /min Edil Dennison MD [address] [facility], [facility] [address], [place], [address], [facility] [employer] [facility] 09/18/2022 13:05:10 Social History Question Answer Notes LastModified by Organizat ion Details LastModified Time Tobacco Smoking Status Never Smoker Not Available [employer] 07/23/2022 10:41:40 What Is Your Level Of Alcohol Consumption? Occasional [id number] Information not available 07/23/2022 What Is Your Level Of Caffeine Consumption? None MIGRATION.[id number] 0319 Information not available 07/23/2022 In The 14 Days Before Symptom Onset, Have You Had Close Contact With A Laboratory-confirm ed COVID-19 While That Case Was Ill? No [id number].[id number] Information not available 07/23/2022 In The 14 Days Before Symptom Onset, Have You Had Close Contact With A Person Who Is Under Investigation For COVID-19 While That Person Was Ill? No [id number].[id number] 3914 Information not available 07/23/2022 Are You Currently Employed? No Information not available 09/18/2022 What Type Of Diet Are You Following? REGULAR MIGRATION.032662 0512 Information not available 07/23/2022 Do You Have An Electrostatic Air Filter? No Information not available 09/18/2022 Have You Been Exposed To Chemicals Or Toxins? Yes Information not available 09/18/2022 Do You Have A Humidifier? No Information not available 09/18/2022 Do You Have Moisture Problems In Your Home? No Information not available 09/18/2022 What Was The Date Of Your Most Recent Tobacco Screening? 09/18/2022 Information not available 09/18/2022 Do You Have Any Pets? Yes Information not available 09/18/2022 Do You Have Smoke And Carbon Monoxide Detectors In Your Home? Yes Information not available 09/18/2022 Are You Passively Exposed To Smoke? No Information no t available 09/18/2022 Do You Use Any Illicit Or Recreational Drugs? No MIGRATION.[id number] 5641 Information not available 07/23/2022 Do You Use Sunscreen Routinely? No Information not available 09/18/2022 Has Tobacco Cessation Counseling Been Provided? No MIGRATION.256359 9167 Information not available 07/23/2022 Have You Recently Traveled Abroad? No MIGRATION.254671 7846 Information not available 07/23/2022 Do You Have Any Dietary Restrictions? No MIGRATION.145573 3514 Information not available 07/23/2022 Do You Or Have You Ever Used Any Other Forms Of Tobacco Or Nicotine? No MIGRATION.123434 3604 Information not available 07/23/2022 Sex: Unknown Functional Status Question Answer Note LastModified by Organizat ion Details LastModified Time What is your exercise level? Moderate [id number] Information not available 07/23/2022 Mental Status None recorded. Family History Relationship Description Onset Age of this Age Resolved Age Notes LastModified by Organization Details LastModified Time Mother Hypertensive disorder [id number].024 [id number] Not available 07/23/2022 10:42:38 Mother Diabetes mellitus [id number] [id number] Not available 07/23/2022 10:42:38 Mother Obstructive sleep apnea syndrome [email or web address] Not available 2022 13:17:18 Maternal Uncle Obstructive sleep apnea syndrome [email or web address] Not available 2022 13:17:27 Maternal Aunt Obstructive sleep apnea syndrome [email or web address] Not available 2022 13:17:31 Maternal Grandmother Malignant tumor of rectum [email or web address] Not available 2022 13:18:17 Father Malignant neoplasm of bone [email or web address] Not available 2022 13:18:44 Medical History No medical history recorded. Immunizations Vaccine Type Date Status Note Provider Nam e and Address Organization Details Recorded Time Influenza, split virus, quadrivalent, PF 04/23/2022 completed Not Available [facility] 10:47:53 Past Encounters Encounter ID Performer Location Encounter Start Date Encounter Closed Date Diagnosis/Indication Diagnosis SNOMED-CT Code Diagnosis ICD10 Code Diagnosis Note [id number] [facility] Primary Care [facility] [address] [facility] [address] [place] [address] 12/25/2020 00:00:00 12/25/2020 08:29:15 [id number] [facility] Primary Care [facility] [address] [facility] [address] [address] [place] [address] 01/23/2021 00:00:00 01/23/2021 08:26:27 [id number] [facility] [place] [address] [place] [address] 04/10/2021 00:00:00 04/10/2021 09:13:45 [id number] [facility] [place] [address] [place] [address] 06/11/2021 00:00:00 06/11/2021 16:54:42 [id number] [facility] [place] [address] [place] [address] 06/13/2021 00:00:00 06/13/2021 20:23:27 [id number] [facility] [place] [address] [facility] [address] [place] [address] 07/02/2021 00:00:00 07/02/2021 15:51:58 [id number] [facility] [place] [address] [place] [address] 04/23/2022 00:00:00 04/23/2022 18:33:25 [id number] [facility] [place] [address] [facility] [address] [place] [address] 06/03/2022 00:00:00 06/03/2022 14:24:30 [id number] [facility] [address] [place] [address] 06/11/2022 00:00:00 06/11/2022 11:17:59 [id number] DONALD Winslow [facility] [place] [address] [facility] [address] [place] [address] 09/01/2022 15:21:02 09/01/2022 15:58:40 Pneumonia 239206958 J18.9 Seen at ER 08/17/22. CXR showed possible pneumonia. He was given course of moxifloxac in.Symptom s improved. Gastroesop hageal reflux disease 956605731 K21.9 Has been on pantoprazo le 40mg daily. He cut back on which has helped so he stopped taking the pantoprazo le daily. He has noticed when he does take it now it has started to give him some diarrhea, but it goes away quickly. Since he does not feel like he needs an every day pill which do a trial of just trying famotidine as needed. Continue to monitor symptoms. [id number] Edil Dennison MD [facility] [address] [facility] [address] [place] [address] 09/18/2022 12:14:09 09/19/2022 08:27:37 Obstructive sleep apnea syndrome 14743473 G47.33 Health Concerns Section Related Observation LastModified by Organization Detai ls LastModified Time None Recorded Concern Status LastModified by Organization Details LastModified Time None Recorded Advance Directives Directive None Recorded Payers Encounter Date Sequence Insurance Name Policy Number Policy Marie Covered Member ID Marie Member ID Guarantor Name 09/01/2022 1 [facility] ON OR AFTER 11/22/20 (MEDICAID REPLACEMENT - HMO) Teja Mathews [id number] Teja Mathews 09/18/2022 1 [facility] ON OR AFTER 11/22/20 (MEDICAID REPLACEMENT - HMO) Teja Mathews [id number] Teja Mathews Notes Date Note Type Note Provider Name and Address Organization Details Recorded Time 09/01/2022 text/html Seen at ER for URI symptoms. CXR showed possible pneumonia. He was given course of moxifloxacin. He states symptoms have improved. No longer taking any medications. DONALD Winslow [address] [facility] [address], [place], [address], [facility] [employer] 09/01/2022 15:56:27 09/18/2022 text/html Primary care/Referring provider: DONALD Winslow [phone] During the [facility] home sleep study on 05/05/22, AHI = 26, supine AHI = 29. During the [facility] titration sleep study on 09/02/22, the patient uses a ResMed AirSense 11 autoset unit with heated humidification. The patient does not need the ramp to start low and go up slowly on the pressure anymore. There is some xerostomia in a.m. There is no hose/mask condensation with water. The patient wears a ResMed medium AirFit P10 nasal pillows without chin strap. There is no claustrophobia, no nostril/nose bridge irritation, no facial rash, no facial numbness, no nosebleeding. The patient feels more refreshed upon waking and daytime alertness is improved. Energy levels are sustained for the remainder of the day. At home, the patient sleeps from 10 pm to 6 am and wakes up with an alarm. Snoring: heavy, since . Snorting: no Choking: yes Coughing: yes Gasping: yes Gagging: yes Sighing: no Witnessed apnea: yes Twitching or jerking of leg(s), arm(s), body, head: no Teeth grinding: no Teeth clenching: no Sleeptalking: yes Sleepwalking: no Sleep crying: no Bedwetting: no Tongue/lip/gum/aranza k biting: no Sleeping with open mouth: yes Sleep paralysis: yes Hypnagogic hallucinations: no Hypnopompic hallucinations: no Vivid dreams: no Difficulty with sleep onset: no Difficulty with sleep maintenance: yes Sleep interruptions: choking Patient wakes up with: fatigue, xerostomia, headaches, jaw pain Daytime cataplexy: no Morning hypersomnolence: yes Afternoon hypersomnolence: yes Caffeine sources in diet: soda 1 fountain drink per day, energy drink 1 can of C4 per day Associated medical and psychiatric conditions: Congestive heart failure: no Coronary artery disease: no Myocardial infarction: no Hypertension: yes Stroke: no Bronchial asthma: no Chronic obstructive pulmonary disease: no Depression: yes Bipolar disorder: no Anxiety: yes Panic disorder: no Posttraumatic stress disorder: no Attention deficit and hyperactivity disorder: yes Obsessive Compulsive disorder: no Schizophrenia: no Schizoaffective disorder: no Personality disorder: no Chronic analgesic use: no Chronic sedative/hypnotic use: no EPWORTH SLEEPINESS SCALE (ESS) CHANCE OF DOZING SCORE 0 = would never doze 1 = slight chance of dozing 2 = moderate chance of dozing 3 = high chance of dozing SITUATION AND CHANCE OF DOZING Sitting and reading - 3 Watching television - 2 Sitting inactive in a public place (e.g. a theater or meeting) - 2 As a passenger in a car for an hour without a break - 2 Lying down to rest in the afternoon when circumstances permit - 3 Sitting and talking to someone - 1 Sitting quietly after lunch without alcohol - 2 In a car, while stopped for a few minutes in the traffic - 1 TOTAL SCORE 16 Subjectively, patient has a moderate chance of dozing. Edil Dennison MD [address] [place] [address], [place] [address], [place], [address], [place] [facility] 09/18/2022 13:23:48
[2024-09-07 17:58] LABS: Basophils Absolute Auto 0.1 K/mm3 (0.0-0.1); Basophils Percent Auto 0.4 % (0.2-1.2); Eosinophils Absolute Auto 0.3 K/mm3 (0-0.3); Eosinophils Percent Auto 2.2 % (0-4.4); Hematocrit 47.4 % (42.0-52.0); Hemoglobin 15.7 g/dL (14.0-18.0); Immature Granulocyte Absolute 0.12 K/mm3 (0.00-0.031); Immature Granulocyte Percent A 1.1 % (0-0.5); Lymphocytes Absolute Auto 2.21 K/mm3 (0.9-3.2); Lymphocytes Percent Auto 19.9 % (18.3-44.2); Mean Corpuscular HGB Conc 33.1 g/dl (32-36); Mean Corpuscular Hemoglobin 28.1 pg (26-34); Mean Corpuscular Volume 84.9 fl (80-100); Mean Platelet Volume 9.9 fl (7.4-10.4); Monocytes Percent Auto 8.6 % (2.6-8.5); Neutrophils Absolute Auto 7.5 K/mm3 (1.3-6.7); Neutrophils Percent Auto 67.8 % (45.5-73.1); Platelet Count Result 342 k/mm3 (150-375); Red Blood Count 5.58 M/mm3 (4.6-6.20); Red Cell Distribution Width 13.2 % (11.5-14.5); White Blood Count 11.1 K/mm3 (4.5-10.0)
[2024-09-07 18:02] LABS: Add Urine Microscopic? YES; Appearance Urine Clear (Clear); Bacteria Urine None Seen /hpf; Bilirubin Urine Negative (Negative); Blood Urine Negative (Negative); Color Urine Dark Yellow (Yellow); Glucose Urine UA Negative (Negative); Ketones Urine Trace mg/dL (Negative); Leukocyte Esterase Ur Negative LEU/UL (Negative); Nitrate Urine Negative (Negative); Protein Urine Trace mg/dL (Negative); RBC Urine 0-2 /hpf (0-2); Specific Grav Ur 1.032 (1.001-1.035); Squamous Epithelial Cell Urine None Seen /hpf (Few); WBC Urine 0-5 /hpf (0-3)
[2024-09-07 18:13] LABS: Alanine Aminotransferase 33 U/L (6-50); Albumin Level 4.8 g/dL (3.5-5.1); Alkaline Phosphatase 70 U/L (38-126); Anion Gap 14 mmol/L (4-12); Aspartate Amino Transferase 27 U/L (17-59); Bilirubin,Total 0.8 mg/dL (0.2-1.3); Blood Urea Nitrogen 30 mg/dL (9-20); Calcium 9.5 mg/dL (8.4-10.2); Carbon Dioxide 22 mmol/L (22-30); Chloride 99 mmol/L (98-107); Estimated CRCL calculation 63 ml/min; Estimated Glomerular Filt Rate 26; Glucose 92 mg/dL (65-110); Lipase 120 U/L (23-300); Potassium 4.1 mmol/L (3.4-5.0); Sodium 135 mmol/L (137-145)
--- OUTSIDE RECORDS SUMMARY | 2024-09-07 18:33 | XMS_ITS | Clinical Summary ---
Author Organization [facility] Address [facility]ly [facility], [facility] [place] [address] Care Team Providers Care Electronics Recycler Name Role Phone None, Provider MD Primary [...] Department Care Team Description 07/29/2024 5:13 PM LOCK PLATER - 07/29/2024 5:45 PM LOCK PLATER Hospital Encounter [facility] [address] [place] [address] Adore Coleman, RAPHAEL Cough; Wrist Pain Discharge [...] Sex Assigned at Male 07/29/2024 4:51 PM LOCK PLATER Legal Sex Male 5:47 PM CDT Gender Identity Not on file Sexual Orientation Not on file Last Filed Vital Signs Vital Sign Reading Time Taken Comments Blood Pressure 148/94 07/29/2024 5:17 PM LOCK PLATER Pulse 86 07/29/2024 5:17 PM LOCK PLATER Temperature 37.1 C (98.7 F) 07/29/2024 5:17 PM LOCK PLATER Respiratory Rate 18 07/29/2024 5:17 PM LOCK PLATER Oxygen Saturation 98% 07/29/2024 5:17 PM LOCK PLATER Inhaled Oxygen Concentration - - Weight 192.8 kg (425 lb) 07/29/2024 5:17 PM LOCK PLATER Height 190.5 cm (6' 3 ) 07/29/2024 5:17 PM LOCK PLATER Body Mass Index 53.12 07/29/2024 5:17 PM LOCK PLATER Plan of Treatment Health Maintenance Due Date [...] CORONAVIRUS (COVID 19) STAT 07/29/2024 5:23 PM LOCK PLATER from Last 3 Months Results * CORONAVIRUS (COVID 19) (07/29/2024 5:23 PM LOCK PLATER) CORONAVIRUS SARS COV 2 RNA NEGATIVE NEGATIVE 07/29/2024 5:38 PM LOCK PLATER [facility] Comment: NEGATIVE RESULTS DO NOT RULE OUT [...] SARS-COV-2. SPECIMEN TYPE NASAL 07/29/2024 5:23 PM LOCK PLATER [facility] NASAL STRUCTURE / Unknown 07/29/2024 5:23 PM LOCK PLATER us Adore Coleman SECOND HELPER MICROBIOLOGY - GENERAL O RDERABLES Final Result [facility] [facility] [place] [address], [place] from Last 3 Months Insurance [facility] Care Teams Electronics Recycler Relationship Specialty Start Date End Date None, Provider, MD PCP - General UNKNOWN PHYSICIAN SPECIALTY 07/29/24
--- OUTSIDE RECORDS SUMMARY | 2024-09-07 18:33 | XMS_ITS | Referral Summary ---
Author Organization [facility] Address [address] [place] [address] Care Team Providers Care Motor Equipment Sergeant Name Role Phone No, Physician Primary Care Provider [phone] Allergies Active Allergy Reactions Criticality Noted Date [...] on file Legal Sex Male 6:24 PM EBAY RESELLER Gender Identity Not on file Sexual Orientation [...] Plan of Treatment Not on file Insurance [facility] Advance Directives For more information, please contact: [phone] * Full Code (Latest Code Status on File) Date Activated Date Inactivated Comments 05/25/2021 1:56 PM 05/30/2021 6:52 PM Care Teams Motor Equipment Sergeant Relationship Specialty Start Date End Date No, Physician PCP - General 01/07/24
--- OUTSIDE RECORDS SUMMARY | 2024-09-07 18:33 | XMS_ITS | Clinical Summary ---
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 Gender Identity Not on file Sexual Orientation [...] Screening 2010 Regular Well Visit/Exam 18-64 2010 DTaP/Tdap/Td Vaccine (7 - Td or Tdap) 06/05/2024 06/05/2014, 09/21/1996, 12/18/1993, Additional history exists Influenza Vaccine (Season Ended) 2025 04/23/2022 HPV Vaccines Aged Out No longer eligi ble based on patient's age to complete this topic Pneumococcal vaccine <65 Aged Out No longer eligible based on patient's age to complete this topic Insurance [employer] Advance Directives For more information, please contact: [phone] * Full Code (Latest Code Status on File) Date Activated Date Inactivated Comments 05/25/2021 1:56 PM 05/30/2021 6:52 PM Care Teams Paper Sales Representative Relationship Specialty Start Date End Date No, Physician PCP - General 01/07/24
[2024-09-07] MEDS: LACTATED RINGERS 1,000 ML 999 ML IV CONT ×4 (18:39→21:22)
[2024-09-07] MEDS: PANTOPRAZOLE SODIUM IV 40 MG VIAL IV PUSH (18:52)
[2024-09-07] MEDS: ONDANSETRON INJ 4 MG/2 ML VIAL IV PUSH (18:52)
[2024-09-07 19:24] LABS: Influenza A QL RT-PCR Negative (Negative); Influenza B QL RT-PCR Negative (Negative); RSV RNA, RT-PCR Negative (Negative); SARS-CoV-2 RNA PCR Negative (Negative)
--- NOTE | 2024-09-07 19:39 | PC.NURSE ---
Pt. states he feels amazing. Nausea has subsided.
--- NOTE | 2024-09-07 19:55 | ED_ITS ---
HPI - Abdominal Pain General Chief Complaint: Abdominal Pain Stated Complaint: Vomiting, full body cramps, SHOB, dizzy Time Seen by Provider: 09/07/24 18:10 History of Present Illness HPI narrative: Patient with history of GERD presents with nausea vomiting and left upper quadrant pain for the last few days, has not been able to keep anything down, started feel cramps and lightheaded Related Data Home Medications ?Medication ?Instructions ?Recorded ?Confirmed ?Last Taken ?Type pantoprazole 20 mg tablet,delayed 20 mg PO QAM 04/30/19 08/24/24 04/30/21 History release Allergies Allergy/AdvReac Type Severity Reaction Status Date / Time tramadol AdvReac Intermediate Agitated Verified 09/07/24 17:17 amoxicillin AdvReac Mild Dry Mouth Verified 09/07/24 17:17 Review of Systems 2 Review of Systems: All systems reviewed & are unremarkable except as noted in HPI and below PMFSH Past Medical History Medical History (Updated 09/07/24 @ 21:26 by Nithya Laurent MD) Chronic GERD COVID HTN (hypertension) Surgical History Surgical History No history of previous surgery Family History Family History Mother DVT (deep venous thrombosis) Pulmonary embolism Hypertension Diabetes mellitus Depression Anxiety Grandparent Hypertension Diabetes mellitus Grandparent Hypertension Diabetes mellitus Social History Social History (Updated 07/19/24 @ 07:23 by Loreto Cruz MA) Smoking status: Never smoker Alcohol use details: Does not use Substance use: never Do You Feel Safe in your Home?: Yes Lack of Transportation: No Lack of Food: Never True Current Housing: I Have Housing Concerned About Future Housing: No Difficulty Paying Gas/Electric Bills: No Currently Unemployed: YES Education: Decline to Answer Difficulty w/ Childcare or Family Care: No Living arrangements: with family Gender identity (if verbalized by the patient): Male Sexual Orientation (if Verbalized by the Patient): Straight or Heterosexual Spiritual care concerns: No Agree to blood products: Yes Exam 2 Narrative: EXAMINATION OF ORGAN SYSTEMS/BODY AREAS: Constitutional: Vital signs per nursing GENERAL: Appears uncomfortable in the bed, retching HEAD: Normal with no signs of head trauma. EYES: EOMI, conjunctiva normal ENT: Hearing grossly intact LUNGS: Nonlabored breathing. HEART: [Regular rate and rhythm] ABD: [Soft], very minimal tenderness to epigastric abdomen EXT: Normal range of motion SKIN: [No rashes or lesions.] NEURO: [Alert and oriented x 3. No gross focal sensory or strength deficits.] PSYCH: Normal affect Course Vital Signs Vital signs: Vital Signs Temperature 97.5 F L 09/07/24 17:27 Pulse Rate 105 H 09/07/24 17:27 Respiratory Rate 25 H 09/07/24 17:27 Blood Pressure 160/139 H 09/07/24 17:27 Pulse Oximetry 95 09/07/24 17:27 Oxygen Delivery Room Air 09/07/24 17:27 Temperature 97.5 F L 09/07/24 17:27 Pulse Rate 67 09/07/24 21:06 Respiratory Rate 25 H 09/07/24 21:06 Blood Pressure 96/55 L 09/07/24 21:06 Pulse Oximetry 100 09/07/24 21:06 Oxygen Delivery Room Air 09/07/24 17:27 MDM - Abdominal Pain MDM Narrative Medical decision making narrative: Patient presents with nausea vomiting and epigastric pain ongoing for last few days, has not been able to keep anything down, also having some cramps and lightheadedness. On exam abdomen is soft with minimal epigastric tenderness, he is retching. Creatinine is elevated at 2.8 from normal 1 month ago, I do suspect MAINOR likely from dehydration, he is treated symptomatically and rehydrated and I will repeat labs. Initially blood pressure was soft, though he states he feels great, pain resolved, just slightly nauseous, and he has been mentating normally. His creatinine did improve as did his GFR, however given the persistent low blood pressure, further workup was initiated including CT, with discussion with patient regarding risks/benefits. Lactic thankfully normal indicating normal perfusion. After the 3rd L his blood pressure has finally been improving, and by the 4 L his maps are now consistently above 70s. Discussed with hospitalist for admission. Lab Data 09/07/24 17:49 09/07/24 20:14 Labs: Lab Results 09/07/24 09/07/24 09/07/24 Range/Units 17:49 17:51 18:44 WBC 11.1 H (4.5-10.0) K/mm3 RBC 5.58 (4.6-6.20) M/mm3 Hgb 15.7 (14.0-18.0) g/dL Hct 47.4 (42.0-52.0) % MCV 84.9 (80-100) fl MCH 28.1 (26-34) pg MCHC 33.1 (32-36) g/dl RDW 13.2 (11.5-14.5) % Plt Count 342 (150-375) k/mm3 MPV 9.9 (7.4-10.4) fl Immature Gran % (Auto) 1.1 H (0-0.5) % Neut % (Auto) 67.8 (45.5-73.1) % Lymph % (Auto) 19.9 (18.3-44.2) % [place] % (Auto) 8.6 H (2.6-8.5) % Eos % (Auto) 2.2 (0-4.4) % Baso % (Auto) 0.4 (0.2-1.2) % Lymph # (Auto) 2.21 (0.9-3.2) K/mm3 [place] # (Auto) 1.0 H (0.1-0.6) K/mm3 Eos # (Auto) 0.3 (0-0.3) K/mm3 Baso # (Auto) 0.1 (0.0-0.1) K/mm3 Abs Immat Gran (auto) 0.12 H (0.00-0.031) K/mm3 Absolute Neuts (auto) 7.5 H (1.3-6.7) K/mm3 Absolute Nucleated RBC 0.000 (0.0-0.012) K/mm3 Nucleated RBC % 0.0 (0.0-0.2) % Sodium 135 L (137-145) mmol/L Potassium 4.1 (3.4-5.0) mmol/L Chloride 99 (98-107) mmol/L Carbon Dioxide 22 (22-30) mmol/L Anion Gap 14 H (4-12) mmol/L BUN 30 H D (9-20) mg/dL Creatinine 2.81 H (0.7-1.3) mg/dL Estim Creat Clear Calc 63 ml/min Estimated GFR 26 L (59 - ) Glucose 92 (65-110) mg/dL Lactic Acid (0.7-2.0) mmol/L Calcium 9.5 (8.4-10.2) mg/dL Total Bilirubin 0.8 (0.2-1.3) mg/dL AST 27 (17-59) U/L ALT 33 (6-50) U/L Alkaline Phosphatase 70 (38-126) U/L Troponin I (0.000-0.034) ng/mL Total Protein 8.0 (6.3-8.2) g/dL Albumin 4.8 (3.5-5.1) g/dL Lipase 120 (23-300) U/L Urine Color Dark yellow (Yellow) Urine Appearance Clear (Clear) Urine pH 5.0 (5.0-9.0) Ur Specific [place] 1.032 (1.001-1.035) Urine Protein Trace (Negative) mg/dL Urine Glucose (UA) Negative (Negative) mg/dL Urine Ketones Trace H (Negative) mg/dL Ur Blood (Man) Negative (Negative) Urine Nitrate Negative (Negative) Urine Bilirubin Negative (Negative) Urine Urobilinogen 1.0 (<2.0) mg/dL Leukocyte Esterase Rfl Negative (Negative) ANDRÉS/UL Urine RBC 0-2 (0-2) /hpf Urine WBC 0-5 (0-3) /hpf Ur Squamous Epith Cells None seen (Few) /hpf Urine Bacteria None seen /hpf Urine Casts 3-5 Influenza A (RT-PCR) Negative (Negative) Influenza B (RT-PCR) Negative (Negative) RSV (RT-PCR) Negative (Negative) SARS-CoV-2 RNA (RT-PCR) Negative (Negative) 09/07/24 09/07/24 Range/Units 20:14 20:57 WBC (4.5-10.0) K/mm3 RBC (4.6-6.20) M/mm3 Hgb (14.0-18.0) g/dL Hct (42.0-52.0) % MCV (80-100) fl MCH (26-34) pg MCHC (32-36) g/dl RDW (11.5-14.5) % Plt Count (150-375) k/mm3 MPV (7.4-10.4) fl Immature Gran % (Auto) (0-0.5) % Neut % (Auto) (45.5-73.1) % Lymph % (Auto) (18.3-44.2) % [place] % (Auto) (2.6-8.5) % Eos % (Auto) (0-4.4) % Baso % (Auto) (0.2-1.2) % Lymph # (Auto) (0.9-3.2) K/mm3 [place] # (Auto) (0.1-0.6) K/mm3 Eos # (Auto) (0-0.3) K/mm3 Baso # (Auto) (0.0-0.1) K/mm3 Abs Immat Gran (auto) (0.00-0.031) K/mm3 Absolute Neuts (auto) (1.3-6.7) K/mm3 Absolute Nucleated RBC (0.0-0.012) K/mm3 Nucleated RBC % (0.0-0.2) % Sodium 134 L (137-145) mmol/L Potassium 4.5 (3.4-5.0) mmol/L Chloride 98 (98-107) mmol/L Carbon Dioxide 23 (22-30) mmol/L Anion Gap 13 H (4-12) mmol/L BUN 33 H (9-20) mg/dL Creatinine 2.61 H (0.7-1.3) mg/dL Estim Creat Clear Calc 68 ml/min Estimated GFR 29 L (59 - ) Glucose 99 (65-110) mg/dL Lactic Acid 1.4 (0.7-2.0) mmol/L Calcium 9.0 (8.4-10.2) mg/dL Total Bilirubin (0.2-1.3) mg/dL AST (17-59) U/L ALT (6-50) U/L Alkaline Phosphatase (38-126) U/L Troponin I < 0.012 (0.000-0.034) ng/mL Total Protein (6.3-8.2) g/dL Albumin (3.5-5.1) g/dL Lipase (23-300) U/L Urine Color (Yellow) Urine Appearance (Clear) Urine pH (5.0-9.0) Ur Specific [place] (1.001-1.035) Urine Protein (Negative) mg/dL Urine Glucose (UA) (Negative) mg/dL Urine Ketones (Negative) mg/dL Ur Blood (Man) (Negative) Urine Nitrate (Negative) Urine Bilirubin (Negative) Urine Urobilinogen (<2.0) mg/dL Leukocyte Esterase Rfl (Negative) ANDRÉS/UL Urine RBC (0-2) /hpf Urine WBC (0-3) /hpf Ur Squamous Epith Cells (Few) /hpf Urine Bacteria /hpf Urine Casts Influenza A (RT-PCR) (Negative) Influenza B (RT-PCR) (Negative) RSV (RT-PCR) (Negative) SARS-CoV-2 RNA (RT-PCR) (Negative) Discharge Plan Discharge Clinical Impression: Chronic GERD, MAINOR (acute kidney injury) Patient Disposition: Still a Patient Condition: Stable Patient Language: Egyptian Prescriptions: No Action Zepbound 2.5 mg/0.5 mL pen injector 2.5 mg subcut WEEKLY Qty: 2 0RF Rx Instructions: for 4 weeks pantoprazole 20 mg Tablet,Delayed Release (Dr/Ec) 20 mg PO QAM sertraline 100 mg tablet 100 mg PO DAILY Qty: 90 0RF triamcinolone acetonide 0.025 % cream 1 applic topical DAILY Qty: 15 0RF lisinopril-hydrochlorothiazide 20-25 mg tablet 1 tablet PO DAILY Qty: 90 1RF Follow-up/Referrals: Anna Razo APRN [Primary Care Provider] -
--- NOTE | 2024-09-07 20:01 | PC.NURSE ---
Dr. Laurent notified of pt. hypotension. BP taken multiple times on both limbs with no improvement. Pt. continues to deny pain or nausea. Dr. Laurent notified. Additional fluid bolus ordered.
--- NOTE | 2024-09-07 20:06 | ECG_ITS ---
Test Date: 2024-09-07 20:19:51 Measurements Intervals [place] Rate: 78 P: 34 PA: 172 QRS: -14 QRSD: 130 T: 30 QT: 393 QTc: 450 Interpretive Statements SINUS RHYTHM WITH SINUS ARRHYTHMIA INTRAVENTRICULAR CONDUCTION DELAY NONSPECIFIC ST ELEVATION IN DIFFUSE LEADS BASELINE ARTIFACT- II, III BORDERLINE ECG No previous ECG available for comparison Electronically Signed On 09-07-2024 21:47:39 CDT by Quentin Solis D.O.
--- NOTE | 2024-09-07 20:27 | PC.NURSE ---
Pt. denies any pain, nausea or dizziness. Denies SOB. Speech clear. Pt. able to move all extremities without difficulty.
[2024-09-07 20:29] LABS: Anion Gap 13 mmol/L (4-12); Blood Urea Nitrogen 33 mg/dL (9-20); Carbon Dioxide 23 mmol/L (22-30); Chloride 98 mmol/L (98-107); Estimated CRCL calculation 68 ml/min; Estimated Glomerular Filt Rate 29; Glucose 99 mg/dL (65-110); Potassium 4.5 mmol/L (3.4-5.0); Sodium 134 mmol/L (137-145)
--- NOTE | 2024-09-07 20:35 | PC.NURSE ---
Dr. Laurent at bedside at bedside assessing pt. Per MD, no current clinical justification for for hypotension.
[2024-09-07 21:12] LABS: Lactic Acid Reflex 1.4 mmol/L (0.7-2.0)
[2024-09-07 21:18] LABS: Troponin I < 0.012 ng/mL (0.000-0.034)
[2024-09-08] VITALS: BP 97/45; PULSE 78; RESP 16; TEMP 36.7; O2SAT 98
[2024-09-08] MEDS: LACTATED RINGERS 1,000 ML 150 ML IV CONT (00:01)
[2024-09-08 04:00] VITALS: BP 110/57; PULSE 70; RESP 12; TEMP 36.6; O2SAT 99
--- NOTE | 2024-09-08 04:08 | PM.IMHP ---
H&P: HPI History of Present Illness Date/Time: 09/08/24 04:08 Chief Complaint: Upper abdominal pain Narrative: 34-year-old male with a past medical history of morbid obesity, obstructive sleep apnea noncompliant with CPAP, essential hypertension and GERD who presented to the ER with left upper abdominal pain. The patient reports that 6 days ago he had a low-grade temperature cough and upper respiratory symptoms. His 2 younger children had been ill with similar symptoms. He reported this T-max was 101?. He took Coricidin HBP and Mucinex as well as some Tylenol with relief in his symptoms. He felt better on Thursday and return to work on Thursday. When he was working on Thursday he had 1 episode of vomiting in but had no other symptoms. Then on Thursday he had an additional 1 episode of vomiting associated with some left upper quadrant abdominal pain only while he was vomiting. But the knee became more concerned because he had generalized cramping of his arms and legs and is cramping all over that was not improving. He subsequently came to the ER for evaluation. He reports that he did not eat prior to vomiting in fact 1 of his issues with weight loss is that he only eats 1 meal a day. He also admits that he does not drink much water before going to work. 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 He denies any chest pain or palpitations. He has not had any recurrence of fevers since the 1st 2 days of his viral symptoms. His cough as resolved. He denies any chest pain or shortness of breath. He does have untreated obstructive sleep apnea but does not tolerate CPAP due to claustrophobia. He reports that he had tried a decreased dose of lisinopril/hydrochlorothiazide 20/12.5 to try to reduce his symptoms of urinary frequency. He was having frequency of urination because he was not compliant with his antihypertensives. His blood pressures were not staying down with the lower dose of medications so 1 month ago he was increased back up to 20/25 of lisinopril/hydrochlorothiazide. He reports his blood pressures have improved significantly with this. He had not been having any hypotension. He had not been having any lightheadedness with position changes. He reports that his urinary frequency has remained stable over the last week. He denies any incomplete bladder emptying or dysuria. In the ER labs demonstrated acute kidney injury and elevated ketones in his urine. Review of Systems Review of Systems: 12 systems were reviewed with pertinent positives and negatives per HPI. Except as documented in the HPI, all other systems were reviewed and are negative. [facility] Past Medical History Medical History (Updated 09/08/24 @ 04:24 by Gloria Antonio DO) Hepatic steatosis Morbid obesity with BMI of 50.0-59.9, adult Sleep apnea Chronic GERD COVID HTN (hypertension) Surgical History Surgical History No history of previous surgery Family History Family History Mother DVT (deep venous thrombosis) Pulmonary embolism Hypertension Diabetes mellitus Depression Anxiety Grandparent Hypertension Diabetes mellitus Grandparent Hypertension Diabetes mellitus Social History Social History (Updated 09/08/24 @ 07:37 by Gloria Antonio DO) Social History: The patient lives with his common-law of 11 years. They have an 8-year-old 7-year-old and 3-year-old at home. 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 He will drink 1 alcoholic beverage a year. He denies illicit substance use. Code status: Full code Surrogate decision maker: Patti (significant other) Smoking status: Never smoker Alcohol intake: never Alcohol use details: Does not use Substance use: never Substance use type: does not use Do You Feel Safe in your Home?: Yes Lack of Transportation: No Lack of Food: Never True Current Housing: I Have Housing Concerned About Future Housing: No Difficulty Paying Gas/Electric Bills: No Difficulty Paying for Meds: No Currently Unemployed: No Education: Grade School Difficulty w/ Childcare or Family Care: No Living arrangements: with family Gender identity (if verbalized by the patient): Male Sexual Orientation (if Verbalized by the Patient): Straight or Heterosexual Spiritual care concerns: No Agree to blood products: Yes Meds Home Medications and Allergies Home Medications ?Medication ?Instructions ?Recorded ?Confirmed ?Type pantoprazole 20 mg tablet,delayed 20 mg PO QAM 04/30/19 09/07/24 History release tirzepatide (weight loss) 2.5 2.5 mg (0.5 mL) subcut WEEKLY #2 mL 08/24/24 09/07/24 Rx mg/0.5 mL subcutaneous pen injector (Zepbound) sertraline 100 mg tablet 100 mg PO DAILY #90 tabs 08/25/24 09/07/24 Rx lisinopril 20 1 tablet PO DAILY #90 tabs 09/05/24 09/07/24 Rx mg-hydrochlorothiazide 25 mg tablet Allergies Allergy/AdvReac Type Severity Reaction Status Date / Time tramadol AdvReac Intermediate Agitated Verified 09/07/24 17:17 amoxicillin AdvReac Mild Dry Mouth Verified 09/07/24 17:17 Vital Signs Vital Signs - 24 hr 09/07/24 17:27 09/07/24 17:31 09/07/24 20:01 Temperature 97.5 F L 98.0 F Pulse Rate 105 H 65 75 Respiratory Rate 25 H 14 16 Blood Pressure 160/139 H 103/40 L 102/53 L Pulse Oximetry 95 98 99 Oxygen Delivery Room Air 09/07/24 20:36 09/07/24 21:06 09/07/24 21:22 Temperature Pulse Rate 79 67 64 Respiratory Rate 16 25 H 16 Blood Pressure 95/57 L 96/55 L 101/61 Pulse Oximetry 100 100 96 Oxygen Delivery 09/07/24 22:01 09/07/24 22:17 09/07/24 22:41 Temperature Pulse Rate 85 76 80 Respiratory Rate 18 18 Blood Pressure 106/47 L 111/56 L 120/57 L Pulse Oximetry 96 98 97 Oxygen Delivery 09/07/24 22:41 09/07/24 23:00 09/08/24 00:00 Temperature 98.1 F Pulse Rate 82 78 Respiratory Rate 16 Blood Pressure 110/61 97/45 L Pulse Oximetry 98 98 Oxygen Delivery Room Air Exam Narrative: Weight 196.7 kg BMI 54.2 Const: Other: No acute distress, morbidly obese, appears stated age HENMT: Other: Mucous membranes are tacky, no oral pharyngeal erythema, crowded posterior oropharynx Eyes: Other: Pupils are equal and reactive, no scleral icterus, no conjunctival pallor Neck: Other: Large neck circumference, no overt lymphadenopathy, exam exam limited due to body habitus Resp: Other: Clear to auscultation bilaterally, no increased work of breathing Cardio: Other: Regular rate, regular rhythm, 2+ bilateral radial pedal pulses, no murmur GI: Other: Soft mild generalized tenderness palpation, nondistended, positive bowel sounds Skin: Other: No jaundice, no pallor Neuro: Other: Alert oriented, speech is clear, no facial asymmetry, moves all extremities equally Extrem: Other: No clubbing, cyanosis or edema Psych: Other: Appropriate mood and affect, pleasant and cooperative, judgment and insight intact H&P: Results Labs Labs: Laboratory Tests 09/07/24 17:49 09/07/24 20:14 09/07/24 09/07/24 09/07/24 17:49 17:51 18:44 WBC 11.1 H RBC 5.58 Hgb 15.7 Hct 47.4 MCV 84.9 MCH 28.1 MCHC 33.1 RDW 13.2 Plt Count 342 MPV 9.9 Immature Gran % (Auto) 1.1 H Neut % (Auto) 67.8 Lymph % (Auto) 19.9 Andrews % (Auto) 8.6 H Eos % (Auto) 2.2 Baso % (Auto) 0.4 Lymph # (Auto) 2.21 Andrews # (Auto) 1.0 H Eos # (Auto) 0.3 Baso # (Auto) 0.1 Abs Immat Gran (auto) 0.12 H Absolute Neuts (auto) 7.5 H Absolute Nucleated RBC 0.000 Nucleated RBC % 0.0 Sodium 135 L Potassium 4.1 Chloride 99 Carbon Dioxide 22 Anion Gap 14 H BUN 30 H D Creatinine 2.81 H Estim Creat Clear Calc 63 Estimated GFR 26 L Glucose 92 Lactic Acid Calcium 9.5 Total Bilirubin 0.8 AST 27 ALT 33 Alkaline Phosphatase 70 Troponin I Total Protein 8.0 Albumin 4.8 Lipase 120 Urine Color Dark yellow Urine Appearance Clear Urine pH 5.0 Ur Specific [place] 1.032 Urine Protein Trace Urine Glucose (UA) Negative Urine Ketones Trace H Ur Blood (Man) Negative Urine Nitrate Negative Urine Bilirubin Negative Urine Urobilinogen 1.0 Leukocyte Esterase Rfl Negative Urine RBC 0-2 Urine WBC 0-5 Ur Squamous Epith Cells None seen Urine Bacteria None seen Urine Casts 3-5 Influenza A (RT-PCR) Negative Influenza B (RT-PCR) Negative RSV (RT-PCR) Negative SARS-CoV-2 RNA (RT-PCR) Negative 09/07/24 09/07/24 20:14 20:57 WBC RBC Hgb Hct MCV MCH MCHC RDW Plt Count MPV Immature Gran % (Auto) Neut % (Auto) Lymph % (Auto) Andrews % (Auto) Eos % (Auto) Baso % (Auto) Lymph # (Auto) Andrews # (Auto) Eos # (Auto) Baso # (Auto) Abs Immat Gran (auto) Absolute Neuts (auto) Absolute Nucleated RBC Nucleated RBC % Sodium 134 L Potassium 4.5 Chloride 98 Carbon Dioxide 23 Anion Gap 13 H BUN 33 H Creatinine 2.61 H Estim Creat Clear Calc 68 Estimated GFR 29 L Glucose 99 Lactic Acid 1.4 Calcium 9.0 Total Bilirubin AST ALT Alkaline Phosphatase Troponin I < 0.012 Total Protein Albumin Lipase Urine Color Urine Appearance Urine pH Ur Specific [place] Urine Protein Urine Glucose (UA) Urine Ketones Ur Blood (Man) Urine Nitrate Urine Bilirubin Urine Urobilinogen Leukocyte Esterase Rfl Urine RBC Urine WBC Ur Squamous Epith Cells Urine Bacteria Urine Casts Influenza A (RT-PCR) Influenza B (RT-PCR) RSV (RT-PCR) SARS-CoV-2 RNA (RT-PCR) Impressions Chest/Abdomen/Pelvis CTA 09/07/24 22:21 IMPRESSION: CHEST: 1. No evidence of dissection or pulmonary embolism. 2. No acute cardiopulmonary pathology. ABDOMEN/PELVIS: 1. No evidence of appendicitis, diverticulitis or intestinal obstruction. 2. No aortic dissection seen. 3. Small sliding hiatus hernia. 4. Fat infiltration of the liver. 5. Bilateral fat containing inguinal hernias EKG:Test Date: 2024-09-07 20:19:51 Measurements Intervals [place] Rate: 78 P: 34 SD: 172 QRS: -14 QRSD: 130 T: 30 QT: 393 QTc: 450 Interpretive Statements SINUS RHYTHM WITH SINUS ARRHYTHMIA INTRAVENTRICULAR CONDUCTION DELAY NONSPECIFIC ST ELEVATION IN DIFFUSE LEADS BASELINE ARTIFACT- II, III BORDERLINE ECG No previous ECG available for comparison All imaging and EKGs personally reviewed and interpreted. And unless stated otherwise agree with radiologic and cardiology interpretation. Assessment and Plan Assessment and plan (1) MAINOR (acute kidney injury): Code(s): N17.9 - Acute kidney failure, unspecified Status: Acute (2) Acute dehydration: Code(s): E86.0 - Dehydration Status: Acute (3) Hypotension due to hypovolemia: Code(s): E86.1 - Hypovolemia Status: Acute (4) Hepatic steatosis: Code(s): K76.0 - Fatty (change of) liver, not elsewhere classified Status: Acute Plan Patient has acute kidney injury likely due to a combination hypovolemia, relative hypotension and nephrotoxic medications. Patient did have a mild improvement in creatinine after 2 L of fluid were administered in the ER but then he developed relative hypotension from his baseline with systolic blood pressures in the mid 90s. The patient subsequently received 2 more L of IV fluids with improvement in his systolic blood pressures to the low 100s. At this time will hold patient's home antihypertensive medications and continue IV fluid hydration with LR at 150 mL an hour. Will repeat electrolyte panel and Mag and phos in a.m.. The patient also did receive CTA of the chest abdomen pelvis with contrast in the ER. Will need to monitor closely for possible contrast nephropathy in the next 48-72 hours. Will monitor strict I&O's. If no significant improvement in renal function function in the next 24 hours will consult Nephrology. Will avoid nephrotoxic medications. The patient's dehydration is possibly due to GERD and given description of symptoms improving with oral intake possible underlying ulcer although no bleeding. Will hold the patient's oral PPI and instead place patient on IV Protonix b.i.d. however given the patient's report of abdominal pain only with vomiting will discontinue Protonix. CK was added to labs to rule out rhabdomyolysis given report of muscle cramps and CK was normal. Patient does have hepatic steatosis noted on imaging likely due to his morbid obesity. Patient would benefit greatly from diet lifestyle modification. The patient states he has already in discussion with his primary care physician regarding dietary changes in behavioral changes to improve his nutrition. Patient is no longer taking G LP 1 medication. He has also ?looking into other treatments? for is obstructive sleep apnea since he does not tolerate CPAP due to claustrophobia. He reports that he is motivated to changes habits so that he can live longer for his children. Patient has been admitted as observation status. Quality VTE Prophylaxis VTE prophylaxis: pharmacologic ordered (Lovenox 40 mg subQ q.12 hours.) Hospitalist [facility] Advance Care Plan I have confirmed that the patient's Advanced Care Plan is present, code status is documented, or surrogate decision maker is listed in patient medical record.: Yes Medication Reconciliation I have utilized all available resources to obtain, update and review the patients current medications (includes all prescriptions, OTC, herbals, cannabis, and nutritional supplements).: Yes
[2024-09-08 06:01] LABS: Basophils Percent Auto 0.5 % (0.2-1.2); Eosinophils Absolute Auto 0.3 K/mm3 (0-0.3); Eosinophils Percent Auto 4.7 % (0-4.4); Hematocrit 41.9 % (42.0-52.0); Hemoglobin 13.8 g/dL (14.0-18.0); Immature Granulocyte Absolute 0.09 K/mm3 (0.00-0.031); Immature Granulocyte Percent A 1.5 % (0-0.5); Lymphocytes Absolute Auto 1.95 K/mm3 (0.9-3.2); Lymphocytes Percent Auto 32.9 % (18.3-44.2); Mean Corpuscular HGB Conc 32.9 g/dl (32-36); Mean Corpuscular Hemoglobin 28.8 pg (26-34); Mean Corpuscular Volume 87.3 fl (80-100); Monocytes Absolute Auto 0.6 K/mm3 (0.1-0.6); Monocytes Percent Auto 10.1 % (2.6-8.5); Neutrophils Percent Auto 50.3 % (45.5-73.1); Platelet Count Result 246 k/mm3 (150-375); Red Cell Distribution Width 13.2 % (11.5-14.5); White Blood Count 5.9 K/mm3 (4.5-10.0)
[2024-09-08 06:24] LABS: Anion Gap 9 mmol/L (4-12); Blood Urea Nitrogen 23 mg/dL (9-20); Calcium 8.8 mg/dL (8.4-10.2); Carbon Dioxide 26 mmol/L (22-30); Chloride 100 mmol/L (98-107); Creatine Kinase 110 U/L (55-170); Estimated CRCL calculation 137 ml/min; Estimated Glomerular Filt Rate > 60; Glucose 95 mg/dL (65-110); Magnesium 2.2 mg/dL (1.6-2.3); Phosphorus 4.2 mg/dL (2.5-4.5); Potassium 4.2 mmol/L (3.4-5.0); Sodium 135 mmol/L (137-145)
--- NOTE | 2024-09-08 07:44 | P.PNIM_ITS ---
Progress Note: A&P Assessment and Plan (1) MAINOR (acute kidney injury): Code(s): N17.9 - Acute kidney failure, unspecified Status: Acute Assessment and Plan: Acute kidney injury likely due to a combination hypovolemia, relative hypotension and nephrotoxic medications. Received 2L of fluid in the ER with slight improvement prior to developing hypotension from his baseline with systolic blood pressures in the mid 90s. Subsequently received 2 more L of fluids with improvement in his systolic blood pressures to the low 100s. BUN/Cr 30/2.81 with GFR 26 on admission - BUN/Cr 23/1.26 on am labs, back to WNL - CTA of the chest abdomen pelvis with contrast in the ER. Will need to monitor closely for contrast nephropathy in next 48-72 hours. - Avoid nephrotoxic medications - Renally dose medications - Monitor I/O (2) Acute dehydration: Code(s): E86.0 - Dehydration Status: Acute Assessment and Plan: Possibly due to GERD and given description of symptoms improving with oral intake possible underlying ulcer although no bleeding. CK was added to labs to rule out rhabdomyolysis given report of muscle cramps and CK was normal. Patient has received IV fluids and dehydration appears to be improving. Encourage oral intake. (3) Hypotension due to hypovolemia: Code(s): E86.1 - Hypovolemia Status: Acute Assessment and Plan: Likely secondary to hypovolemia and antihypertensives Improved with IV fluids - Hold lisinopril 20mg - HCTZ 25 mg daily, resume when appropriate - Blood pressures remain stable at this time, continue to monitor (4) Hepatic steatosis: Code(s): K76.0 - Fatty (change of) liver, not elsewhere classified Status: Acute Assessment and Plan: Patient does have hepatic steatosis noted on imaging likely due to his morbid o besity. Patient would benefit greatly from diet lifestyle modification. The patient states he has already in discussion with his primary care physician regarding dietary changes in behavioral changes to improve his nutrition. Time Spent With Patient Time with patient: 25 - 35 minutes Subjective Date/time seen: 09/08/24 07:44 Interval history: 34-year-old male with a past medical history of morbid obesity, obstructive s leep apnea noncompliant with CPAP, essential hypertension and GERD who presented to the ER with left upper abdominal pain. Patient is pleasant lying comfortably in bed with family at bedside. He states that he is feeling better and is no longer endorsing nausea/vomiting. He does note occasional dizziness with ambulation states that this has improved since receiving IV fluids. He is tolerating a regular well. He has no other complaints denying chest pain, shortness a breath, palpitations, nausea/vomiting, and abdominal pain. Review of Systems Review of Systems: All systems reviewed & are unremarkable except as noted in HPI and below Exam Narrative: AF HR 70 RR 12 Spo2 99 BP 110/57 General: male in no acute respiratory distress who is nontoxic appearing, lying semi recumbent in bed. HEENT: Normocephalic. Atraumatic. Extraocular movement intact. Sclera clear and anicteric. No facial asymmetry. Chest: Lungs are clear to auscultation bilaterally. CV: Heart was regular rate and rhythm. Abd: Abdomen was soft. Nontender. Nondistended. Positive bowel sounds. Neuro: Patient is alert and oriented x4. Speech is clear. Objective Data Vital Signs Vital Signs: Vital Signs - 24 hr 09/07/24 17:27 09/07/24 17:31 09/07/24 20:01 Temperature 97.5 F L 98.0 F Pulse Rate 105 H 65 75 Respiratory Rate 25 H 14 16 Blood Pressure 160/139 H 103/40 L 102/53 L Pulse Oximetry 95 98 99 Oxygen Delivery Room Air 09/07/24 20:36 09/07/24 21:06 09/07/24 21:22 Temperature Pulse Rate 79 67 64 Respiratory Rate 16 25 H 16 Blood Pressure 95/57 L 96/55 L 101/61 Pulse Oximetry 100 100 96 Oxygen Delivery 09/07/24 22:01 09/07/24 22:17 09/07/24 22:41 Temperature Pulse Rate 85 76 80 Respiratory Rate 18 18 Blood Pressure 106/47 L 111/56 L 120/57 L Pulse Oximetry 96 98 97 Oxygen Delivery 09/07/24 22:41 09/07/24 23:00 09/08/24 00:00 Temperature 98.1 F Pulse Rate 82 78 Respiratory Rate 16 Blood Pressure 110/61 97/45 L Pulse Oximetry 98 98 Oxygen Delivery Room Air 09/08/24 04:00 Temperature 97.8 F Pulse Rate 70 Respiratory Rate 12 Blood Pressure 110/57 L Pulse Oximetry 99 Oxygen Delivery Intake/Output Intake/Output: Intake & Output 09/05/24 09/06/24 09/07/24 09/08/24 23:59 23:59 23:59 23:59 Intake Total 4000 500 Balance 4000 500 Meds/Results Medications: Active Medications Generic Name Dose Route Start Last Admin Trade Name Freq PRN Reason Stop Dose Admin Enoxaparin Sodium 40 mg 09/08/24 09:00 Enoxaparin 40 Mg/0.4 Ml Syringe SUB-Q Q12HR [facility] Pantoprazole Sodium 40 mg 09/08/24 09:00 Pantoprazole 40 Mg Tablet PO QAM [facility] Sertraline HCl 100 mg 09/08/24 09:00 Sertraline Hcl 50 Mg Tablet PO DAILY [facility] Radiology Results: ITS Impressions Chest/Abdomen/Pelvis CTA 09/07/24 22:21 IMPRESSION: CHEST: 1. No evidence of dissection or pulmonary embolism. 2. No acute cardiopulmonary pathology. ABDOMEN/PELVIS: 1. No evidence of appendicitis, diverticulitis or intestinal obstruction. 2. No aortic dissection seen. 3. Small sliding hiatus hernia. 4. Fat infiltration of the liver. 5. Bilateral fat containing inguinal hernias Labs Labs: Laboratory Results - last 24 hr 09/07/24 09/07/24 09/07/24 17:49 17:51 18:44 WBC 11.1 H RBC 5.58 Hgb 15.7 Hct 47.4 MCV 84.9 MCH 28.1 MCHC 33.1 RDW 13.2 Plt Count 342 MPV 9.9 Immature Gran % (Auto) 1.1 H Neut % (Auto) 67.8 Lymph % (Auto) 19.9 Williams % (Auto) 8.6 H Eos % (Auto) 2.2 Baso % (Auto) 0.4 Lymph # (Auto) 2.21 Williams # (Auto) 1.0 H Eos # (Auto) 0.3 Baso # (Auto) 0.1 Abs Immat Gran (auto) 0.12 H Absolute Neuts (auto) 7.5 H Absolute Nucleated RBC 0.000 Nucleated RBC % 0.0 Sodium 135 L Potassium 4.1 Chloride 99 Carbon Dioxide 22 Anion Gap 14 H BUN 30 H D Creatinine 2.81 H Estim Creat Clear Calc 63 Estimated GFR 26 L Glucose 92 Lactic Acid Calcium 9.5 Phosphorus Magnesium Total Bilirubin 0.8 AST 27 ALT 33 Alkaline Phosphatase 70 Total Creatine Kinase Troponin I Total Protein 8.0 Albumin 4.8 Lipase 120 Urine Color Dark yellow Urine Appearance Clear Urine pH 5.0 Ur Specific [place] 1.032 Urine Protein Trace Urine Glucose (UA) Negative Urine Ketones Trace H Ur Blood (Man) Negative Urine Nitrate Negative Urine Bilirubin Negative Urine Urobilinogen 1.0 Leukocyte Esterase Rfl Negative Urine RBC 0-2 Urine WBC 0-5 Ur Squamous Epith Cells None seen Urine Bacteria None seen Urine Casts 3-5 Influenza A (RT-PCR) Negative Influenza B (RT-PCR) Negative RSV (RT-PCR) Negative SARS-CoV-2 RNA (RT-PCR) Negative 09/07/24 09/07/24 09/08/24 20:14 20:57 05:36 WBC 5.9 RBC 4.80 Hgb 13.8 L Hct 41.9 L MCV 87.3 MCH 28.8 MCHC 32.9 RDW 13.2 Plt Count 246 MPV 10.0 Immature Gran % (Auto) 1.5 H Neut % (Auto) 50.3 Lymph % (Auto) 32.9 Williams % (Auto) 10.1 H Eos % (Auto) 4.7 H Baso % (Auto) 0.5 Lymph # (Auto) 1.95 Williams # (Auto) 0.6 Eos # (Auto) 0.3 Baso # (Auto) 0.0 Abs Immat Gran (auto) 0.09 H Absolute Neuts (auto) 3.0 Absolute Nucleated RBC 0.000 Nucleated RBC % 0.0 Sodium 134 L 135 L Potassium 4.5 4.2 Chloride 98 100 Carbon Dioxide 23 26 Anion Gap 13 H 9 BUN 33 H 23 H D Creatinine 2.61 H 1.26 Estim Creat Clear Calc 68 137 Estimated GFR 29 L > 60 Glucose 99 95 Lactic Acid 1.4 Calcium 9.0 8.8 Phosphorus 4.2 Magnesium 2.2 Total Bilirubin AST ALT Alkaline Phosphatase Total Creatine Kinase 110 Troponin I < 0.012 Total Protein Albumin Lipase Urine Color Urine Appearance Urine pH Ur Specific [place] Urine Protein Urine Glucose (UA) Urine Ketones Ur Blood (Man) Urine Nitrate Urine Bilirubin Urine Urobilinogen Leukocyte Esterase Rfl Urine RBC Urine WBC Ur Squamous Epith Cells Urine Bacteria Urine Casts Influenza A (RT-PCR) Influenza B (RT-PCR) RSV (RT-PCR) SARS-CoV-2 RNA (RT-PCR) 09/08/24 05:36 WBC RBC Hgb Hct MCV MCH MCHC RDW Plt Count MPV Immature Gran % (Auto) Neut % (Auto) Lymph % (Auto) Williams % (Auto) Eos % (Auto) Baso % (Auto) Lymph # (Auto) Williams # (Auto) Eos # (Auto) Baso # (Auto) Abs Immat Gran (auto) Absolute Neuts (auto) Absolute Nucleated RBC Nucleated RBC % Sodium Potassium Chloride Carbon Dioxide Anion Gap BUN Creatinine Estim Creat Clear Calc Estimated GFR Glucose Lactic Acid Calcium Phosphorus Magnesium Total Bilirubin AST ALT Alkaline Phosphatase Total Creatine Kinase Cancelled Troponin I Total Protein Albumin Lipase Urine Color Urine Appearance Urine pH Ur Specific [place] Urine Protein Urine Glucose (UA) Urine Ketones Ur Blood (Man) Urine Nitrate Urine Bilirubin Urine Urobilinogen Leukocyte Esterase Rfl Urine RBC Urine WBC Ur Squamous Epith Cells Urine Bacteria Urine Casts Influenza A (RT-PCR) Influenza B (RT-PCR) RSV (RT-PCR) SARS-CoV-2 RNA (RT-PCR) Quality VTE Prophylaxis VTE prophylaxis: pharmacologic ordered (Lovenox 40 mg subQ q.12 hours.)
[2024-09-08] MEDS: ENOXAPARIN 40 MG/0.4 ML SYRINGE SUB-Q ×2 (09:03→21:43)
[2024-09-08] MEDS: PANTOPRAZOLE 40 MG TABLET PO (09:03)
[2024-09-08] MEDS: SERTRALINE HCL 50 MG TABLET 100 MG PO (09:03)
[2024-09-08 12:00] VITALS: BP 124/82; PULSE 71; RESP 20; TEMP 36.5; O2SAT 96
[2024-09-08 12:32] VITALS: O2SAT 97
[2024-09-08 16:00] VITALS: BP 120/80; PULSE 74; RESP 20; TEMP 36.4; O2SAT 98
[2024-09-08 20:06] VITALS: BP 128/74; PULSE 63; RESP 18; TEMP 36.6; O2SAT 98
[2024-09-09 00:31] VITALS: BP 116/61; PULSE 73; RESP 16; TEMP 36.7; O2SAT 94
[2024-09-09 06:12] VITALS: BP 127/84; PULSE 80; RESP 18; TEMP 36.4; O2SAT 99
[2024-09-09 07:56] VITALS: BP 142/75; PULSE 77; RESP 22; TEMP 36.3; O2SAT 99
[2024-09-09] MEDS: lisinopriL 20 MG TABLET PO (08:28)
[2024-09-09] MEDS: PANTOPRAZOLE 40 MG TABLET PO (08:28)
[2024-09-09] MEDS: SERTRALINE HCL 50 MG TABLET 100 MG PO (08:28)
[2024-09-09 09:25] LABS: Anion Gap 10 mmol/L (4-12); Blood Urea Nitrogen 17 mg/dL (9-20); Calcium 9.1 mg/dL (8.4-10.2); Carbon Dioxide 24 mmol/L (22-30); Chloride 100 mmol/L (98-107); Estimated CRCL calculation 220 ml/min; Estimated Glomerular Filt Rate > 60; Glucose 134 mg/dL (65-110); Potassium 4.3 mmol/L (3.4-5.0); Sodium 134 mmol/L (137-145)
[2024-09-09 12:00] VITALS: BP 143/69; PULSE 70; RESP 22; TEMP 36.1; O2SAT 98
--- NOTE | 2024-09-09 13:09 | P.DS_ITS ---
DS: Admitting Diagnosis Discharge Date 09/09/2024 Admitting Diagnosis MAINOR dehydration hypotension hepatis steatosis DS: Discharge Diagnosis Discharge Diagnosis (1) MAINOR (acute kidney injury): Code(s): N17.9 - Acute kidney failure, unspecified Status: Acute (2) Acute dehydration: Code(s): E86.0 - Dehydration Status: Acute (3) Hypotension due to hypovolemia: Code(s): E86.1 - Hypovolemia Status: Acute (4) Hepatic steatosis: Code(s): K76.0 - Fatty (change of) liver, not elsewhere classified Status: Acute DS: Summary Hospital Course Reason for hospitalization: MAINOR dehydration hypotension hepatis steatosis Hospital Course: 34-year-old male with a past medical history of morbid obesity, obstructive sleep apnea noncompliant with CPAP, essential hypertension and GERD who presented to the ER with left upper abdominal pain. Patient was noted to be hypotensive on admission likely secondary to hypovolemia from dehydration and continued antihypertensive use. Dehydration possibly due to GERD. Patient was noted to have an MAINOR on labs. MAINOR likely due to a combination hypovolemia, relative hypotension and nephrotoxic medications. CK was added to labs to rule out rhabdomyolysis given report of muscle cramps and CK was normal. Patient received IV fluids and hypotension and MAINOR resolved. Patients antihypertensives adjusted to only lisinopril 20 mg daily. Discussed with patient that he is to monitor and record blood pressures at home to take with him for PCP review. He states understanding. CTA of the chest/abdomen/pelvis was unremarkable other than fat infiltration of the liver. Hepatic steatosis likely due to his morbid obesity. Patient states he is working on diet and lifestyle modifications. Patient had no complaints at time of discharge denying chest pain, shortness a breath, palpitations, nausea/vomiting, abdominal pain. Patient discharged home with family in a stable condition. He is to follow up with his primary care provider in 1 week. Status at Discharge Functional status at discharge: independent ambulation Time Spent with Patient Time attestation: Total time spent providing and/or coordinating discharge services: Time spent: Greater than 30 minutes Exam Narrative: AF HR 70 RR 22 SpO2 98 BP 143/69 General: male in no acute respiratory distress who is nontoxic appearing, s itting up in bed HEENT: Normocephalic. Atraumatic. Extraocular movement intact. Sclera clear and anicteric. No facial asymmetry. Chest: Lungs are clear to auscultation bilaterally. CV: Heart was regular rate and rhythm. Abd: Abdomen was soft. Nontender. Nondistended. Positive bowel sounds. Neuro: Patient is alert and oriented x4. Speech is clear. DS: Data Data Completed and Pending Completed studies during hospitalization: Chest abdomen pelvis CTA Labs on day of discharge: Labs from last 24 hours 09/09/24 09:11 Sodium 134 L Potassium 4.3 Chloride 100 Carbon Dioxide 24 Anion Gap 10 BUN 17 Creatinine 0.76 Estim Creat Clear Calc 220 Estimated GFR > 60 Glucose 134 H Calcium 9.1 Discharge Plan Discharge Attending physician on discharge: Mark Flores Discharging Clinician: Lisa Mccloud Anticipated Discharge Date/Time: 09/09/24 13:07 Patient Disposition: Home Activity: as tolerated Diet: as tolerated Discharge Instructions: Discharge disposition: Patient admitted to the hospital for dehydration and hypotension (low blood pressure) causing an acute kidney injury Acute kidney injury has resolved with fluids Eat well balanced meals and stay hydrated Keep active to remain strong Trend urine output Monitor blood pressures and record for PCP follow up Continue lisinopril 20 mg daily, hold hydrochlorothiazide until follow up with PCP Take caution while standing, rising, or moving Change positions slowly taking a break between each position change If you standing feel dizzy sit back down and take a break Hepatic steatosis noted on imaging likely due to obesity Continue diet and lifestyle modifications as you have been discussing with her primary care provider Encouraged to continue with yearly vaccinations Return to the emergency department if he developed sudden shortness of breath, chest pain, nausea, vomiting, upset stomach or intractable diarrhea Return to the emergency department if you develop fever greater than 101.5 Follow-up with the primary care physician within 1-2 weeks Thank you for [facility] for your healthcare needs Patient Instructions: Dehydration (DC), Acute Kidney Injury (DC), Non-Alcoholic Fatty Liver Disease (DC), Hypotension (DC) Patient Language: Turkmen Stand Alone Forms: General Discharge Information Follow-up/Referrals: Anna Razo APRN [Primary Care Provider] - 1 Week Discharge Medications: New lisinopril 20 mg tablet 20 mg PO DAILY Qty: 30 0RF Continued Zepbound 2.5 mg/0.5 mL pen injector 2.5 mg subcut WEEKLY Qty: 2 0RF Rx Instructions: for 4 weeks pantoprazole 20 mg Tablet,Delayed Release (Dr/Ec) 20 mg PO QAM sertraline 100 mg tablet 100 mg PO DAILY Qty: 90 0RF Held lisinopril-hydrochlorothiazide 20-25 mg tablet 1 tablet PO DAILY Qty: 90 1RF Hold Instructions: Resume on 09/21/24. Hold until follow up with PCP Date of admission: 09/07/24 21:23 Primary Care Provider: Anna Razo Admitting Provider: Gloria Antonio Attending physician on admission: Lisa Mccloud Condition: Stable Hospitalist MIPS Heart Failure (Exclusion) Patient has history of Heart Transplant or Left Ventricular Assistive Device?: No IF YES, STOP HERE Heart Failure (Qualifier) Patient has current or prior documentation of LVEF less than or equal to 40%, or mod/servere depressed LVSF?: No IF NO, STOP HERE
== END 2024-09-09 13:42 | disposition home or self-care (01) ==
LOC: ANHED 21:26 → ANH3MEDSUR 09-08 06:47
PROVIDERS: Admitting Provider Internal Medicine; Emergency Provider Emergency Medicine; PCP Nurse Practitioner Adult Health; Visit Provider Student in an Organized Health Care Education/Training Program
DX: N17.9 Acute kidney failure, unspecified (principal); E86.0 Dehydration; E86.1 Hypovolemia; I95.9 Hypotension, unspecified; K76.0 Fatty (change of) liver, not elsewhere classified; E66.01 Morbid (severe) obesity due to excess calories; Z68.43 Body mass index [BMI] 50.0-59.9, adult; I10 Essential (primary) hypertension; K21.9 Gastro-esophageal reflux disease without esophagitis; G47.33 Obstructive sleep apnea (adult) (pediatric); Z91.199 Patient's noncompliance with other medical treatment and regimen due to unspecified reason; Z86.16 Personal history of COVID-19; Z79.899 Other long term (current) drug therapy
CPT/HCPCS: 36415; 71275; 74174; 80048; 80053; 81001; 82550; 83605; 83690; 83735; 84100; 84484; 85025; 87338; 87637; 93005; 96361; 96372; 96374; 96375; 99285; A9270; G0378; J1650; J2405; J2470; J7120; Q9967

== ENCOUNTER 2024-09-28 09:07 | Outpatient (CLI) | payer BC, SELFPAY ==
--- OUTSIDE RECORDS SUMMARY | 2024-09-28 09:30 | XMS_ITS | Clinical Summary ---
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
--- OUTSIDE RECORDS SUMMARY | 2024-09-28 09:30 | XMS_ITS | Referral Summary ---
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
--- OUTSIDE RECORDS SUMMARY | 2024-09-28 09:31 | XMS_ITS | Clinical Summary ---
Author Organization [facility] Address [facility] [place] [address] Care Team Providers Care Oracle Applications Analyst Name Role Phone None, Provider MD Primary [...] Department Care Team Description 07/29/2024 5:13 PM TOPPIECE CHOPPER - 07/29/2024 5:45 PM TOPPIECE CHOPPER Hospital Encounter [facility] [address] [place] [address] Adore Coleman, RAPHAEL Cough; Wrist Pain Discharge [...] Sex Assigned at Male 07/29/2024 4:51 PM TOPPIECE CHOPPER Legal Sex Male 5:47 PM CDT Gender Identity Not on file Sexual Orientation Not on file Last Filed Vital Signs Vital Sign Reading Time Taken Comments Blood Pressure 148/94 07/29/2024 5:17 PM TOPPIECE CHOPPER Pulse 86 07/29/2024 5:17 PM TOPPIECE CHOPPER Temperature 37.1 C (98.7 F) 07/29/2024 5:17 PM TOPPIECE CHOPPER Respiratory Rate 18 07/29/2024 5:17 PM TOPPIECE CHOPPER Oxygen Saturation 98% 07/29/2024 5:17 PM TOPPIECE CHOPPER Inhaled Oxygen Concentration - - Weight 192.8 kg (425 lb) 07/29/2024 5:17 PM TOPPIECE CHOPPER Height 190.5 cm (6' 3 ) 07/29/2024 5:17 PM TOPPIECE CHOPPER Body Mass Index 53.12 07/29/2024 5:17 PM TOPPIECE CHOPPER Plan of Treatment Health Maintenance Due Date [...] CORONAVIRUS (COVID 19) STAT 07/29/2024 5:23 PM TOPPIECE CHOPPER from Last 3 Months Results * CORONAVIRUS (COVID 19) (07/29/2024 5:23 PM TOPPIECE CHOPPER) CORONAVIRUS SARS COV 2 RNA NEGATIVE NEGATIVE 07/29/2024 5:38 PM TOPPIECE CHOPPER [facility] Comment: NEGATIVE RESULTS DO NOT RULE [...] SARS-COV-2. SPECIMEN TYPE NASAL 07/29/2024 5:[address] [facility] NASAL STRUCTURE / Unknown 07/29/2024 5:23 PM TOPPIECE CHOPPER us Adore Coleman CERTIFIED HAND THERAPIST MICROBIOLOGY - GENERAL O RDERABLES Final Result [facility] [facility] [place] [address], [place] from Last 3 Months Insurance [facility] Care Teams Oracle Applications Analyst Relationship Specialty Start Date End Date None, Provider, MD PCP - General UNKNOWN PHYSICIAN SPECIALTY 07/29/24
[2024-09-28 20:03] LABS: Albumin Level 4.6 g/dL (3.5-5.1); Anion Gap 10 mmol/L (4-12); Blood Urea Nitrogen 14 mg/dL (9-20); Calcium 9.6 mg/dL (8.4-10.2); Carbon Dioxide 24 mmol/L (22-30); Chloride 105 mmol/L (98-107); Estimated Glomerular Filt Rate > 60; Glucose 100 mg/dL (65-110); Phosphorus 2.9 mg/dL (2.5-4.5); Potassium 4.5 mmol/L (3.4-5.0); Sodium 139 mmol/L (137-145)
== END 2024-09-28 09:08 | disposition home or self-care (01) ==
LOC: ANHBWCLAB 09:08
PROVIDERS: PCP Nurse Practitioner Adult Health; Visit Provider Nurse Practitioner Adult Health
DX: N17.9 Acute kidney failure, unspecified (principal); I10 Essential (primary) hypertension
CPT/HCPCS: 36415; 80069

== ENCOUNTER 2024-11-12 17:47 | Emergency (ER) | payer BC, SELFPAY ==
--- NOTE | 2024-11-12 17:49 | ED.SKABFB ---
HPI - Skin/Abscess/Foreign Bdy General Chief complaint: Skin/Abscess/Foreign Body Stated complaint: Right Knee Skin Irritation Time Seen by Provider: 11/12/24 17:48 Source: patient Mode of arrival: ambulatory Limitations: no limitations History of Present Illness HPI narrative: Teja is a 34-year-old male patient presenting to the clinic today with complaints of a skin infection to the right anterior proximal tib-fib just below the knee. 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 States the area is red, tender, and hot to touch. Did develop initially as a blister and has popped and has gotten more painful and red. Denies any fevers, chills, body aches. No known insect bite or sting. Denies being poked or any foreign body. Related Data Allergies Allergy/AdvReac Type Severity Reaction Status Date / Time tramadol AdvReac Intermediate Agitated Verified 11/12/24 18:00 amoxicillin AdvReac Mild Dry Mouth Verified 11/12/24 18:00 hydrochlorothiazide AdvReac kidney Verified 11/12/24 18:00 failure Review of Systems Review of Systems: Pertinent positives per HPI. Patient denies any fever, chills, rash, headache, visual changes, dizziness, cough, runny nose, sore throat, shortness of breath, chest pain, palpitations, nausea, vomiting, diarrhea, constipation, abdominal pain, or any urinary issues. [facility] Past Medical History Medical History Hepatic steatosis Morbid obesity with BMI of 50.0-59.9, adult Sleep apnea Chronic GERD COVID HTN (hypertension) Surgical History Surgical History No history of previous surgery Family History Family History Mother DVT (deep venous thrombosis) Pulmonary embolism Hypertension Diabetes mellitus Depression Anxiety Grandparent Hypertension Diabetes mellitus Grandparent Hypertension Diabetes mellitus Social History Social History Social History: The patient lives with his common-law of 11 years. They have an 8-year-old 7-year-old and 3-year-old at home. 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 He will drink 1 alcoholic beverage a year. He denies illicit substance use. Code status: Full code Surrogate decision maker: Patti (significant other) Smoking status: Never smoker Alcohol intake: never Alcohol use details: Does not use Substance use: never Substance use type: does not use Do You Feel Safe in your Home?: Yes Lack of Transportation: No Lack of Food: Never True Current Housing: I Have Housing Concerned About Future Housing: No Difficulty Paying Gas/Electric Bills: No Difficulty Paying for Meds: No Currently Unemployed: No Education: Grade School Difficulty w/ Childcare or Family Care: No Living arrangements: with family Gender identity (if verbalized by the patient): Male Sexual Orientation (if Verbalized by the Patient): Straight or Heterosexual Spiritual care concerns: No Agree to blood products: Yes Comments At the time of my signature, I reviewed and agree with the nursing past medical, surgical, social, and family history. There is no relevant family history pertinent to the patient complaint. Exam Narrative: General: Well-developed, morbidly obese, in no apparent distress Head: Normocephalic, atraumatic. Cardio: Regular rate and rhythm, s1 and s2 normal, no murmur appreciated. Resp: Clear to auscultation bilaterally, no rhonchi, rales, wheezing or rubs. Integumentary: [place], warm, and dry, intact without lesion, open blister, red, erythema, tender palpation, redness measures 4 cm x 2.5 cm. No fluctuance or palpable abscess Course Course Emergency Course: Portions of this record may have been created with voice recognition software. Level of Care: Express Care Visit Vital Signs Vital signs: Vital Signs Temperature 36.9 C 11/12/24 17:54 Pulse Rate 90 11/12/24 17:54 Respiratory Rate 16 11/12/24 17:54 Blood Pressure 150/80 H 11/12/24 17:54 Pulse Oximetry 95 11/12/24 17:54 Oxygen Delivery Room Air 11/12/24 17:54 Temperature 36.9 C 11/12/24 17:54 Pulse Rate 90 11/12/24 17:54 Respiratory Rate 16 11/12/24 17:54 Blood Pressure 150/80 H 11/12/24 17:54 Pulse Oximetry 95 11/12/24 17:54 Oxygen Delivery Room Air 11/12/24 17:54 Vital signs reviewed MDM - Skin/Abscess/Foreign Bdy MDM Narrative Medical decision making narrative: At the time of visit patient is resting comfortably on the exam table. Patient appears to be nontoxic. Plan: I suspect patient has a skin infection to the right proximal anterior tib-fib. Prescription for clindamycin was sent to the pharmacy. Supportive measures were discussed with the patient and they voiced understanding discharge instructions and agrees to treatment plan. Return precautions reviewed Differential Diagnosis Differential diagnosis: Likely abscess of skin or subcutaneous tissue, viral exanthem, dermatophytosis, urticaria, herpes zoster, allergic reaction to drug, cellulitis, eczema, insect bites, impetigo and contact dermatitis Discharge Plan Discharge Clinical Impression: Bacterial skin infection of leg Qualifiers: Laterality: right Qualified Code(s): L03.115 - Cellulitis of right lower limb Patient Disposition: Home Condition: Stable Instructions: Antibiotic Form, Cellulitis (ED) Additional Instructions: Take clindamycin as prescribed May take probiotic 2 hours before 2 hours after 1 of the antibiotic doses daily Keep area clean and dry May take Tylenol/Motrin as needed for pain May apply cool compress to the affected area to help alleviate pain and swelling Follow-up with your primary care doctor in 2-3 days for wound check Go to the emergency room if symptoms worsen-you develop fever, chills, body aches, increase in redness, swelling, purulent discharge, or streaking Patient Language: Pashto Prescriptions: New clindamycin HCl [Cleocin HCl] 300 mg capsule 300 mg PO Q8H 7 Days Qty: 21 0RF No Action omeprazole 20 mg capsule,delayed release(DR/EC) 20 mg PO DAILY Qty: 90 1RF lisinopril 20 mg tablet 20 mg PO DAILY Qty: 90 3RF sertraline 100 mg tablet 100 mg PO DAILY Qty: 90 0RF Follow-up/Referrals: Anna Razo APRN [Primary Care Provider] - Time of Disposition: 17:58 Quality NIHSS Nursing Documentation ED NIHSS nursing documentation: reviewed/agree
[2024-11-12 17:54] VITALS: BP 150/80; PULSE 90; RESP 16; TEMP 36.9; O2SAT 95
== END 2024-11-12 18:06 | disposition home or self-care (01) ==
PROVIDERS: Emergency Provider Nurse Practitioner Family; PCP Nurse Practitioner Adult Health
DX: L03.115 Cellulitis of right lower limb (principal); I10 Essential (primary) hypertension; K21.9 Gastro-esophageal reflux disease without esophagitis; E66.01 Morbid (severe) obesity due to excess calories; Z68.43 Body mass index [BMI] 50.0-59.9, adult; K76.0 Fatty (change of) liver, not elsewhere classified
CPT/HCPCS: 99213; G0463

== ENCOUNTER 2025-01-17 14:33 | Outpatient (CLI) | payer BC, SELFPAY ==
--- NOTE | ~2025-01-17 | XR_ITS ---
XR knee LT 3V, XR knee RT 3V 01/17/2025 15:03 Indication: Bilateral knee pain Procedure: 3 views each knee Comparison: No prior studies for comparison. Findings: There is anatomic alignment. No significant degenerative change. No fracture or traumatic malalignment. No significant joint effusion. Impression: 1: No significant bone or joint abnormality. Reviewed, dictated and finalized at location O. Impression: 1: No significant bone or joint abnormality. Impression: 1: No significant bone or joint abnormality.
--- OUTSIDE RECORDS SUMMARY | 2025-01-17 14:36 | XMS_ITS | Clinical Summary ---
Author Organization 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 Gender Identity Not on file Sexual Orientation [...] P M CDT Height 190.5 cm (6' 3) 01/07/2024 1:20 PM CDT Body Mass Index 50.98 01/07/2024 1:20 PM CDT Plan of Treatment Health Maintenance Due Date Last Done Comments Depression Screening 1992 Hepatitis C Screening 1992 Varicella Vaccines (1 of 2 - 13+ 2-dose series) 2005 Hepatitis B Screening 2010 Regular Well Visit/Exam 18-64 2010 HPV Vaccines (1 - 3-dose SCDM series) 2019 DTaP/Tdap/Td Vaccine (7 - Td or Tdap) 06/05/2024 06/05/2014, 09/21/1996, 12/18/1993, Additional history exists Influenza Vaccine (#1) 2025 04/23/2022 Pneumococcal vaccine <65 Aged Out No longer eligible based on patient's age to complete this topic Insurance [facility] Advance Directives For more information, please contact: [phone] * Full Code (Latest Code Status on File) Date Activated Date Inactivated Comments 05/25/2021 1:56 PM 05/30/2021 6:52 PM Care Teams Water Resources Business Segment Leader Relationship Specialty Start Date End Date No, Physician PCP - General 01/07/24
[2025-01-17 19:14] LABS: Alanine Aminotransferase 42 U/L (6-50); Albumin Level 4.7 g/dL (3.5-5.1); Alkaline Phosphatase 68 U/L (38-126); Anion Gap 11 mmol/L (4-12); Aspartate Amino Transferase 47 U/L (17-59); Bilirubin,Total 0.5 mg/dL (0.2-1.3); Blood Urea Nitrogen 14 mg/dL (9-20); Calcium 9.7 mg/dL (8.4-10.2); Carbon Dioxide 23 mmol/L (22-30); Chloride 104 mmol/L (98-107); Estimated Glomerular Filt Rate > 60; Glucose 78 mg/dL (65-110); Potassium 4.3 mmol/L (3.4-5.0); Sodium 138 mmol/L (137-145); Total Protein 8.4 g/dL (6.3-8.2); Uric Acid 7.8 mg/dL (3.5-8.5)
[2025-01-17 20:08] LABS: Vitamin B12 452.0 pg/mL (239-931)
[2025-01-20 13:08] LABS: ANA by IFA Rfx Titer/Pattern Negative (.)
== END 2025-01-17 14:34 | disposition home or self-care (01) ==
LOC: ANHBWCLAB 14:34
PROVIDERS: PCP Nurse Practitioner Adult Health; Visit Provider Nurse Practitioner Adult Health
DX: M25.40 Effusion, unspecified joint (principal); R73.9 Hyperglycemia, unspecified; I10 Essential (primary) hypertension; M25.562 Pain in left knee; M25.561 Pain in right knee; K21.9 Gastro-esophageal reflux disease without esophagitis
CPT/HCPCS: 36415; 73562; 80053; 82607; 83036; 84550; 86038

== ENCOUNTER 2025-01-24 09:24 | Outpatient (CLI) | payer BC, SELFPAY ==
--- OUTSIDE RECORDS SUMMARY | 2025-01-24 09:44 | XMS_ITS | Clinical Summary ---
Author Organization 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
--- OUTSIDE RECORDS SUMMARY | 2025-01-24 09:44 | XMS_ITS | Patient Health Record ---
Author Organization [facility] [employer] [facility] Address [address] [facility] [address] [place] [address] Care Team Providers Care Data Specialist Name Role Phone Adrian Dawn Unavailable [phone] Reason For Referral No Information Medications Medication SIG (Take, Route, Frequency, Duration) Notes Start Date End Date Status dexAMETHasone 2 MG Tablet Oral Active Fluticasone Propionate Diskus 50 MCG/ACT Aerosol Powder Breath Activated Inhalation *Reorder from [employer] for eRx and Interaction Alerts* Active Ondansetron 4 MG Tablet Disintegrating Oral Active Atorvastatin Calcium 20 MG Tablet Oral Active Lisinopril-hydroCHLOROthi azide 20-25 MG Tablet Oral Active Pantoprazole Sodium 40 MG Tablet Delayed Release Oral Activ e Cetirizine HCl 10 MG Tablet Oral Active Amoxicillin 500 MG Capsule Oral Active Naproxen 500 MG Tablet Oral Active ProAir HFA 108 (90 Base) MCG/ACT Aerosol Solution Inhalation Act caesar Naproxen DR 500 MG Tablet Delayed Release Oral Active Azithromycin 250 MG Tablet Oral Active Methocarbamol 500 MG Tablet Oral Active methylPREDNISolone 4 MG Tablet Therapy Pack Oral Active traMADol HCl 50 MG Tablet Oral Active Social History Social History Additional Details Category Social Info Options Details Migrated Social History Migrated Social History Tobacco Years: Never smoker 04/25/2022 Plan Of Treatment No Information Insurance Providers Payer Name Payer Address Payer Phone Subscriber Number Group Number Insured Name Patient Relationship to Insured Coverage Start Date Coverage End Date [facility] Plan [facility] On Or After [address] [place] [phone] [id number] MARÍA MEDEL Self - patient is the insured
--- OUTSIDE RECORDS SUMMARY | 2025-01-24 09:44 | XMS_ITS | Clinical Summary ---
Author Organization [facility] Address [facility] [place] [address] Care Team Providers Care Medical Care Administrator Name Role Phone None, Provider MD Primary [...] Encounter for preventive health examination 02/09/2012 02/03/2020 Immunizations Immunization Administration Dates Next Due Hepatitis [...] Sex Assigned at Male 07/29/2024 4:51 PM MAINSTREAMING FACILITATOR Legal Sex Male 5:47 PM CDT Gender Identity Not on file Sexual Orientation Not on file Last Filed Vital Signs Vital Sign Reading Time Taken Comments Blood Pressure 148/94 07/29/2024 5:17 PM MAINSTREAMING FACILITATOR Pulse 86 07/29/2024 5:17 PM MAINSTREAMING FACILITATOR Temperature 37.1 C (98.7 F) 07/29/2024 5:17 PM MAINSTREAMING FACILITATOR Respiratory Rate 18 07/29/2024 5:17 PM MAINSTREAMING FACILITATOR Oxygen Saturation 98% 07/29/2024 5:17 PM MAINSTREAMING FACILITATOR Inhaled Oxygen Concentration - - Weight 192.8 kg (425 lb) 07/29/2024 5:17 PM MAINSTREAMING FACILITATOR Height 190.5 cm (6' 3) 07/29/2024 5:17 PM MAINSTREAMING FACILITATOR Body Mass Index 53.12 07/29/2024 5:17 PM MAINSTREAMING FACILITATOR Plan of Treatment Health Maintenance Due Date Last Done Comments Annual Physical 1995 Hepatitis C 2010 Hepatitis B Vaccines (1 of 3 - 19+ 3-dose series) 2011 HPV Vaccines (1 - 3-dose SCDM series) 2019 DTaP, Tdap and Td Vaccines (3 - Td or Tdap) 06/05/2024 06/05/2014, 09/21/1996, 01/03/1993, Additional history exists COVID-19 Vaccine ( season) 2025 Meningococcal B Vaccine Aged Out No l [...] patient's age to complete this topic Insurance [facility] Care Teams Medical Care Administrator Relationship Specialty Start Date End Date None, Provider, MD PCP - General UNKNOWN PHYSICIAN SPECIALTY 07/29/24
--- NOTE | 2025-01-31 09:42 | P.SLEEP_ITS ---
Sleep Study - Home Unattended Date of Study: 01/24/25 Ordering Provider: SUE Adair Interpreting Provider: Jolene Rosado MD Home Sleep Study Type: Watch PAT Height: 1.91 m Weight: 185.973 kg Body Mass Index: 51.2 Neck Circumference (inches): 20 [place]: 15 Reason for Sleep Study Hypersomnolence * 09/02/22 - CPAP titration at [place] - CPAP 9cmH2O recommended. * 05/05/22 - HST through [place] - Moderate JAKE, overall AHI 26, worse in supine. Sleep History Teja Mathews is a 34-year-old man who was tested for sleep apnea in April 2022 with a home sleep test and this showed moderate obstructive sleep apnea. He had a CPAP titration showing an optimal pressure of 9 cm. I did not see any mention of central apneas. He tried CPAP for a while but had difficulty with the mask and the hose that when over his head. He thinks he might be able to tolerate a nasal mask. He continues to have problems and wants to be retested. He wakes up during the night and has witnessed apneas. He frequently awakens from sleep feeling short of breath. He constantly awakens at night with heartburn, belching or coughing. He always snores loudly enough that others complain. He constantly has difficulty sleeping when he has a cold. He always wakes up gasping for breath at night. He always sweats excessively at night. He frequently notices his heart pounding irregularly at night. He frequently falls asleep during the day, frequently falls asleep involuntarily as well as while driving. He occasionally has loss of muscle tone with strong emotion. He occasionally has daytime difficulties due to excessive sleepiness. He does not feel paralyzed on waking or falling asleep. He rarely has vivid dreamlike scenes upon awakening or falling asleep. He never feels afraid to go to sleep. He rarely has nightmares. He rarely remembers his dreams. He frequently has racing thoughts. He rarely feels sad or depressed. He frequently has anxiety. He frequently has muscular tension. He frequently notices parts of his body jerking and he frequently kicks at night. He occasionally has crawling and aching feelings in his legs. He occasionally has leg pain during the night. He always wakes with morning jaw pain and always grinds his teeth during sleep. He frequently is bothered by pain during the day. He occasionally is awakened by pain at night. He frequently wakes up feeling stiff in the morning with sore achy muscles and pain in the neck and spine. He has fatigue and memory problems. Normal bedtime is 9:00 p.m. falling asleep quickly, waking between 2 and 3 times at night to urinate, returning to sleep within 5-10 minutes. His normal wake time is 4:00 a.m.. He maintains the same schedule on weekends. He estimates sleeping 7 hours at night. He generally does not take naps in the afternoon or evening however he does feel refreshed after short 10-15 minute nap. He is drowsy for 3 hours or longer after waking. Habits: Tobacco : never smoker Caffeine : 300 mg or more Alcohol : none Recreational substances : none PMFSH Past Medical History Medical History Hepatic steatosis Morbid obesity with BMI of 50.0-59.9, adult Sleep apnea Chronic GERD COVID HTN (hypertension) Surgical History Surgical History No history of previous surgery Family History Family History Mother DVT (deep venous thrombosis) Pulmonary embolism Hypertension Diabetes mellitus Depression Anxiety Grandparent Hypertension Diabetes mellitus Grandparent Hypertension Diabetes mellitus Social History Social History Social History: The patient lives with his common-law of 11 years. They have an 8-year-old 7-year-old and 3-year-old at home. 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 He will drink 1 alcoholic beverage a year. He denies illicit substance use. Code status: Full code Surrogate decision maker: Patti (significant other) Smoking status: Never smoker Alcohol intake: never Alcohol use details: Does not use Substance use: never Substance use type: does not use Do You Feel Safe in your Home?: Yes Lack of Transportation: No Lack of Food: Never True Current Housing: I Have Housing Concerned About Future Housing: No Difficulty Paying Gas/Electric Bills: No Difficulty Paying for Meds: No Currently Unemployed: No Education: Grade School Difficulty w/ Childcare or Family Care: No Living arrangements: with family Gender identity (if verbalized by the patient): Male Sexual Orientation (if Verbalized by the Patient): Straight or Heterosexual Spiritual care concerns: No Agree to blood products: Yes Medications Home Medications ?Medication ?Instructions ?Recorded ?Confirmed ?Type sertraline 100 mg tablet 100 mg PO DAILY #90 tabs 08/1601/17/25 Rx lisinopril 20 mg tablet 20 mg PO DAILY #90 tabs /12/1601/17/25 Rx omeprazole 20 mg capsule,delayed 20 mg PO DAILY #90 ca ps 09/28/24 01/17/25 Rx release naproxen 500 mg tablet 500 mg PO BID PRN pain #60 t abs 12/14/24 01/17/25 Rx methylprednisolone 4 mg tablets in See Rx Instructions PO PER PKG DIR 01/17/25 01/17/25 Rx a dose pack (Medrol (Jj)) #21 ea Sleep Procedure The sleep study was completed using [employer]ctions[employer] a technically adequate device with seven channels: peripheral arterial tone, actigraphy, body position, snore, respiratory movement, pulse oximetry, sleep staging, and heart rate. Prior to using the device, the patient received verbal and written instructions for its application and was provided with the help desk phone number for additional telephonic instruction with 24-hour availability of qualified personnel to answer questions. Sleep Architecture The total recording time is 5 hours 40 minutes. The total sleep time is 4 hours 58 minutes. Sleep latency is 5 minutes. REM latency is 61 minutes. The patient had 8 episodes of waking. Sleep architecture shows 11.1% deep sleep, 60.3% light sleep, and 20 8.6% stage REM. The patient spent 88.5 minutes, 29.6% of total sleep time in the supine position. Respiratory Analysis The overall AHI is 55.9 (p>3%). The central AHI is 13.7, elevated. The REM AHI was 39.8, non-REM AHI 59.5. the supine AHI was 124.2, the nonsupine AHI was 28.4.. There was no evidence of Samuel-Ogden respirations. Oximetry Data The oxygen desaturation index is 45.4 (BRIANNA 4%). The mean saturation is 94%, the lowest saturation is 83%, and the patient spent 5.6 minutes, 1.9% of the sleep time, below 88%. Snoring Profile Snoring average intensity is 41 decibels. The patient snored above 45 decibels for 36 minutes, 12.1% of sleep time. Cardiac Profile The average pulse rate is 61 beats per minute, lowest pulse rate was 39 beats per minute and the maximum was 98 beats per minute. Cardiac rhythm analysis in sleep does not detect any suspected atrial fibrillation. Assessment and Plan Assessment and Plan (1) Obstructive sleep apnea: Code(s): G47.33 - Obstructive sleep apnea (adult) (pediatric) Status: Acute Assessment and Plan: This home sleep test using WatchPat on 01/24/2025 shows extremely severe obstructive sleep apnea with an apnea-hypopnea index 55.9, desaturation 83% and loud persistent snoring. Patient also has elevated central apneas, central apnea index is 13.7, normal is equal to or below 5. If the patient has not had an echocardiogram he needs to have this before his CPAP titration. Patient is not a candidate for auto PAP. He needs to be scheduled for in-lab CPAP titration as soon as possible and needs to have a sleep aid available to use, if needed, to get to sleep and stay asleep during the titration. He should be strongly encouraged not to drive while drowsy. BMI is 51.2. Weight management is advised. Clinical data suggests that weight loss of 10% can reduce the severity of respiratory events and snoring and improve AHI by as much as 25%. This patient has complaints of frequently kicking at night and sometimes having uncomfortable feelings in his legs at night. His leg movements will be scored during his full night CPAP titration. Often, treating with CPAP can improve kicking. Kicking is often present when apneas occur. This can be followed up after his titration study, and if he continues to have symptoms involving kicking and restless sensation in his legs before sleep, ferritin level can be obtained to exclude iron deficiency anemia as a contributing factor. Ferritin should be 75 ng/mL or greater. If ferritin is below this, iron supplementation should be given to achieve ferritin of 75 ng/mL. There are nonpharmacologic methods to treat limb movements including daily exercise, stretching calf muscles before bed, avoiding excessive amounts of caffeine and alcohol, vitamin B supplementation, magnesium lotion massaged into legs before bed, and use of a weighted blanket. (2) Central sleep apnea: Code(s): G47.31 - Primary central sleep apnea Status: Acute Assessment and Plan: This patient has central sleep apnea in addition to obstructive sleep apnea. Together, obstructive and central apneas can be referred to as mixed sleep apnea. His central apnea index is 13 point 7, normal is equal or less than 5 central events per hour. He does not have any comorbidities that would typically be associated with central sleep apnea, no history of stroke, heart failure, use of substances such as opioids or alcohol. The treatment for central sleep apnea is also PAP therapy. He is not a candidate for auto PAP as this can worsen central apnea. (3) Bruxism: Code(s): F45.8 - Other somatoform disorders Status: Acute Assessment and Plan: The patient describes always grinding his teeth and having jaw pain in the morning. Bruxism is often seen in people who have untreated obstructive sleep apnea. We may be able to detect the patient grinding his teeth on his in-lab CPAP titration. His dentist may need to evaluate his teeth to see if he would benefit by additional therapy such as a mouth guard. Treating the patient's obstructive sleep apnea is expected to improve his bruxing. Data The data obtained during this sleep study is adequate for interpretation. Certification This sleep study has been reviewed by a board certified sleep medicine physician.
[2025-01-31 10:15] VITALS: BMI 51.2
== END 2025-01-25 13:11 | disposition home or self-care (01) ==
LOC: ANHCSM 09:29
PROVIDERS: PCP Nurse Practitioner Adult Health; Visit Provider Physician Assistant
DX: G47.33 Obstructive sleep apnea (adult) (pediatric) (principal)
CPT/HCPCS: 95800

== ENCOUNTER 2025-01-24 13:54 | Outpatient (CLI) | payer BC, SELFPAY ==
--- OUTSIDE RECORDS SUMMARY | 2025-01-24 14:11 | XMS_ITS | Clinical Summary ---
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
--- OUTSIDE RECORDS SUMMARY | 2025-01-24 14:11 | XMS_ITS | Clinical Summary ---
Author Organization [facility] Address [facility] [place] [address] Care Team Providers Care National Service Officer Name Role Phone None, Provider MD Primary [...] Sex Assigned at Male 07/29/2024 4:51 PM CNA GNA Legal Sex Male 5:47 PM CDT Gender Identity Not on file Sexual Orientation Not on file Last Filed Vital Signs Vital Sign Reading Time Taken Comments Blood Pressure 148/94 07/29/2024 5:17 PM CNA GNA Pulse 86 07/29/2024 5:17 PM CNA GNA Temperature 37.1 C (98.7 F) 07/29/2024 5:17 PM CNA GNA Respiratory Rate 18 07/29/2024 5:17 PM CNA GNA Oxygen Saturation 98% 07/29/2024 5:17 PM CNA GNA Inhaled Oxygen Concentration - - Weight 192.8 kg (425 lb) 07/29/2024 5:17 PM CNA GNA Height 190.5 cm (6' 3) 07/29/2024 5:17 PM CNA GNA Body Mass Index 53.12 07/29/2024 5:17 PM CNA GNA Plan of Treatment Health Maintenance Due Date [...] patient's age to complete this topic Insurance [facility] Care Teams National Service Officer Relationship Specialty Start Date End Date None, Provider, MD PCP - General UNKNOWN PHYSICIAN SPECIALTY 07/29/24
[2025-01-24 14:56] LABS: Hematocrit 41.2 % (42.0-52.0); Hemoglobin 13.8 g/dL (14.0-18.0); Immature Granulocyte Percent A 0.5 % (0-0.5); Lymphocytes Absolute Auto 2.43 K/mm3 (0.9-3.2); Mean Corpuscular HGB Conc 33.5 g/dl (32-36); Mean Corpuscular Hemoglobin 28.4 pg (26-34); Mean Corpuscular Volume 84.8 fl (80-100); Nucleated Red Blood Cells Absolute Auto 0.000 K/mm3 (0.0-0.012); Nucleated Red Blood Cells Perc 0.0 % (0.0-0.2); Platelet Count Result 321 k/mm3 (150-375); Red Blood Count 4.86 M/mm3 (4.6-6.20); White Blood Count 8.3 K/mm3 (4.5-10.0)
[2025-01-24 15:23] LABS: Hemoglobin A1C 5.5 % (<5.7)
[2025-01-26 14:08] LABS: ANA by IFA Rfx Titer/Pattern Negative (.)
== END 2025-01-24 13:55 | disposition home or self-care (01) ==
LOC: ANHLAB 13:56
PROVIDERS: PCP Nurse Practitioner Adult Health; Visit Provider Nurse Practitioner Adult Health
DX: R73.9 Hyperglycemia, unspecified (principal); M25.40 Effusion, unspecified joint; M25.569 Pain in unspecified knee
CPT/HCPCS: 36415; 83036; 85025; 85652; 86038

== ENCOUNTER 2025-03-23 13:00 | Emergency (ER) | payer BC, SELFPAY ==
[2025-03-23] VITALS (8 sets, daily range): BP systolic 114–138; BP diastolic 63–86; PULSE 69–81; RESP 16–21; TEMP 36.9; O2SAT 95–99
--- NOTE | ~2025-03-23 | XR_ITS ---
EXAMINATION: XR chest 2V, 03/23/2025 13:30 CDT HISTORY: CP with elevated BP COMPARISON: No comparisons available. Technique: 2 views obtained. Findings: The lungs are clear, no effusion. No pneumothorax. Heart is normal size. Mediastinal and hilar contours are within normal limits. Bony thorax no acute abnormality. Impression: No acute cardiopulmonary abnormality. Reviewed, dictated and finalized at location P. Impression: No acute cardiopulmonary abnormality.
--- NOTE | 2025-03-23 13:02 | ECG_ITS ---
Test Date: 2025-03-23 13:25:03 Measurements Intervals Wilson Rate: 82 P: 0 CA: 0 QRS: -32 QRSD: 134 T: 25 QT: 391 QTc: 459 Interpretive Statements SINUS RHYTHM LEFT AXIS DEVIATION INTRAVENTRICULAR CONDUCTION DELAY BASELINE ARTIFACT- I, II, AVR, AVL, AVF, V1-V6 BORDERLINE ECG Compared to ECG 09/07/2024 20:19:51 NO SIGNIFICANT CHANGE Electronically Signed On 03-23-2025 13:41:51 CDT by Quentin Solis D.O.
--- OUTSIDE RECORDS SUMMARY | 2025-03-23 13:47 | XMS_ITS | Clinical Summary ---
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
--- OUTSIDE RECORDS SUMMARY | 2025-03-23 13:47 | XMS_ITS | Patient Health Record ---
Author Organization [facility] Address [address] [facility] [address] [place] [address] Care Team Providers Care Marketing Planning Manager Name Role Phone Adrian Dawn Unavailable [phone] Reason For Referral No Information Medications Medication SIG (Take, Route, Frequency, Duration) Notes Start Date End Date Status dexAMETHasone 2 MG Tablet Oral Active Fluticasone Propionate Diskus 50 MCG/ACT Aerosol Powder Breath Activated Inhalation *Reorder from [employer] for eRx and Interaction Alerts* Active Ondansetron [...] Insured Coverage Start Date Coverage End Date [facility] Plan [facility] On Or After 20 [address] [place] [address] [id number] MARÍA MEDEL Self - patient is the insured
[2025-03-23 15:46] LABS: Hematocrit 46.2 % (42.0-52.0); Hemoglobin 15.8 g/dL (14.0-18.0); Immature Granulocyte Percent A 0.8 % (0-0.5); Lymphocytes Absolute Auto 1.92 K/mm3 (0.9-3.2); Mean Corpuscular HGB Conc 34.2 g/dl (32-36); Mean Corpuscular Hemoglobin 28.9 pg (26-34); Mean Corpuscular Volume 84.6 fl (80-100); Nucleated Red Blood Cells Absolute Auto 0.000 K/mm3 (0.0-0.012); Nucleated Red Blood Cells Perc 0.0 % (0.0-0.2); Platelet Count Result 305 k/mm3 (150-375); Red Blood Count 5.46 M/mm3 (4.6-6.20); White Blood Count 7.4 K/mm3 (4.5-10.0)
--- NOTE | 2025-03-23 15:51 | ED_ITS ---
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 PATIENT DENIES ANY CHEST PAIN OR SHORTNESS OF BREATH OR BACK PAIN. PATIENT REPORT BEEN STRESSED LATELY, SLIGHT HEADACHE,. CURRENTLY PATIENT IS A SYMPTOMATIC Related Data Allergies Allergy/AdvReac Type Severity Reaction Status Date / Time tramadol AdvReac Intermediate Agitated Verified 03/23/25 13:01 amoxicillin AdvReac Mild Dry Mouth Verified 03/23/25 13:01 hydrochlorothiazide AdvReac kidney Verified 03/23/25 13:01 failure Review of Systems 2 Review of Systems: All systems reviewed & are unremarkable except as noted in HPI and below PMFSH Past Medical History Medical History Hepatic steatosis Morbid obesity with BMI of 50.0-59.9, adult Sleep apnea Chronic GERD COVID HTN (hypertension) Surgical History Surgical History No history of previous surgery Family History Family History Mother DVT (deep venous thrombosis) Pulmonary embolism Hypertension Diabetes mellitus Depression Anxiety Grandparent Hypertension Diabetes mellitus Grandparent Hypertension Diabetes mellitus Social History Social History Social History: The patient lives with his common-law of 11 years. They have an 8-year-old 7-year-old and 3-year-old at home. 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 He will drink 1 alcoholic beverage a year. He denies illicit substance use. Code status: Full code Surrogate decision maker: Patti (significant other) Smoking status: Never smoker Alcohol intake: never Alcohol use details: Does not use Substance use: never Substance use type: does not use Do You Feel Safe in your Home?: Yes Lack of Transportation: No Lack of Food: Never True Current Housing: I Have Housing Concerned About Future Housing: No Difficulty Paying Gas/Electric Bills: No Difficulty Paying for Meds: No Currently Unemployed: No Education: Grade School Difficulty w/ Childcare or Family Care: No Living arrangements: with family Gender identity (if verbalized by the patient): Male Sexual Orientation (if Verbalized by the Patient): Straight or Heterosexual Spiritual care concerns: No Agree to blood products: Yes Exam 2 Narrative: GENERAL APPEARANCE: WELL-DEVELOPED, WELL-NOURISHED SKIN: NORMAL COLOR HEAD: NORMOCEPHALIC, NONTRAUMATIC EYES: CLEAR CONJUNCTIVA ENT: OROPHARYNX NORMAL, EARS NORMAL, NOSE NORMAL NECK: SUPPLE, NONTENDER CHEST AND RESPIRATORY: AIRWAY PATENT, NO RESPIRATORY DISTRESS, NO ACCESSORY MUSCLE USE HEART: REGULAR RATE/RHYTHM ABDOMEN: SOFT, NONTENDER, NO ORGANOMEGALY, QUIET BOWEL SOUNDS VASCULAR: NORMAL PERIPHERAL PULSES, NORMAL CAPILLARY REFILL. MUSCULOSKELETAL: NORMAL RANGE OF MOTION, NONTENDER BACK NEUROLOGIC: ALERT AND ORIENTED ?3, FREIGHT FORWARDER IS NORMAL TESTED, NO GROSS MOTOR DEFICIT Course Vital Signs Vital signs: Vital Signs Temperature 36.9 C 03/23/25 13:08 Pulse Rate 79 03/23/25 13:08 Respiratory Rate 20 03/23/25 13:08 Blood Pressure 138/86 03/23/25 13:08 Pulse Oximetry 98 03/23/25 13:08 Oxygen Delivery Room Air 03/23/25 13:08 Temperature 36.9 C 03/23/25 13:08 Pulse Rate 81 03/23/25 16:31 Respiratory Rate 17 03/23/25 16:31 Blood Pressure 115/64 03/23/25 16:31 Pulse Oximetry 97 03/23/25 16:31 Oxygen Delivery Room Air 03/23/25 15:34 MDM - Chest Pain MDM Narrative Medical decision making narrative: PATIENT CAME TO THE ED WITH ELEVATED BLOOD PRESSURE ASSOCIATED WITH STRESS AND ANXIETY AND NOT FEELING WELL VITAL SIGNS SHOWING BLOOD PRESSURE 138/86 OTHERWISE WITHIN NORMAL LIMIT PHYSICAL EXAMINATION IS UNREMARKABLE DIFFERENTIAL DIAGNOSIS INCLUDE ANXIETY LIKE SYMPTOMS BLOOD WORKUP TODAY INCLUDES CBC, CMP, TROPONIN SHOWED NO ACUTE ABNORMALITIES CHEST X-RAY SHOWED NO ACUTE ABNORMALITIES, EKG SHOWED NO SIGNIFICANT ABNORMALITIES COMPARED TO EKG ON AUGUST 2024 DIAGNOSIS ANXIETY LIKE SYMPTOMS BLOOD PRESSURE ON ARRIVAL TO THE ED WAS 138/86 AT THE TIME OF DISCHARGE 117/73 PATIENT DID NOT RECEIVE ANY MEDICATION DURING ED VISIT THE PT WAS DISCHARGED TO HOME.THE PT,S CONDITION UPON DISCHARGE WAS FAIR,EDUCATION WAS PROVIDED TO THE PT IN REFERENCE TO THE FINAL IMPRESSION,DISCHARGE STUDY RESULTS,TREATMENT,PROGNOSIS AND NEED FOR FOLLOW UP . Differential Diagnosis Differential diagnosis: Likely other ( ABOVE) Medical Records Data Attestation: I reviewed the patient's medical records. Lab Data Attestation: I reviewed the patient's lab results. 03/23/25 15:37 03/23/25 15:37 Labs: Lab Results 03/23/25 Range/Units 15:37 WBC 7.4 (4.5-10.0) K/mm3 RBC 5.46 (4.6-6.20) M/mm3 Hgb 15.8 (14.0-18.0) g/dL Hct 46.2 (42.0-52.0) % MCV 84.6 (80-100) fl MCH 28.9 (26-34) pg MCHC 34.2 (32-36) g/dl RDW 13.2 (11.5-14.5) % Plt Count 305 (150-375) k/mm3 MPV 9.6 (7.4-10.4) fl Immature Gran % (Auto) 0.8 H (0-0.5) % Neut % (Auto) 62.5 (45.5-73.1) % Lymph % (Auto) 25.8 (18.3-44.2) % [place] % (Auto) 7.8 (2.6-8.5) % Eos % (Auto) 2.8 (0-4.4) % Baso % (Auto) 0.3 (0.2-1.2) % Lymph # (Auto) 1.92 (0.9-3.2) K/mm3 [place] # (Auto) 0.6 (0.1-0.6) K/mm3 Eos # (Auto) 0.2 (0-0.3) K/mm3 Baso # (Auto) 0.0 (0.0-0.1) K/mm3 Abs Immat Gran (auto) 0.06 H (0.00-0.031) K/mm3 Absolute Neuts (auto) 4.6 (1.3-6.7) K/mm3 Absolute Nucleated RBC 0.000 (0.0-0.012) K/mm3 Nucleated RBC % 0.0 (0.0-0.2) % PT 12.7 (11.1-14.7) Seconds INR 1.0 APTT 26.5 (22.3-36.8) Seconds Sodium 136 L (137-145) mmol/L Potassium 4.3 (3.4-5.0) mmol/L Chloride 102 (98-107) mmol/L Carbon Dioxide 24 (22-30) mmol/L Anion Gap 10 (4-12) mmol/L BUN 12 (9-20) mg/dL Creatinine 0.80 (0.7-1.3) mg/dL Estim Creat Clear Calc 206 ml/min Estimated GFR > 60 (59 - ) Glucose 84 (65-110) mg/dL Calcium 9.3 (8.4-10.2) mg/dL Total Bilirubin 0.6 (0.2-1.3) mg/dL AST 36 (17-59) U/L ALT 48 (6-50) U/L Alkaline Phosphatase 71 (38-126) U/L Troponin I < 0.012 (0.000-0.034) ng/mL Total Protein 8.3 H (6.3-8.2) g/dL Albumin 4.6 (3.5-5.1) g/dL Lipase 72 (23-300) U/L Imaging Data Radiologist's impression: Impressions Chest X-Ray 03/23/25 13:48 Impression: No acute cardiopulmonary abnormality. ECG Data EKG #1: Attestation: I personally reviewed and interpreted this ECG as follows: ECG completion date: 03/23/25 Prior ECG tracings: available for review Interpretation: NORMAL SINUS RHYTHM AT 82 BEATS PER MINUTE, LEFT AXIS DEVIATION, BORDERLINE EKG, COMPARED TO EKG ON AUGUST 2024 NO SIGNIFICANT CHANGES Critical Care Time Critical Care Time Critical Care Time: No Discharge Plan Discharge Clinical Impression: Anxiety-like symptoms, Hypertension Patient Disposition: Home Condition: Improved Instructions: Anxiety (ED) Additional Instructions: RETURN IF SYMPTOMS ARE WORSENING , CALL YOUR FAMILY PHYSICIAN FOR APPOINTMENT, TAKE TYLENOL NEEDED FOR ACHES AND PAIN, CONTINUE HOME MEDICATIONS. Patient Language: Thai Prescriptions: No Action omeprazole 20 mg capsule,delayed release(DR/EC) 20 mg PO DAILY Qty: 90 1RF lisinopril 20 mg tablet 20 mg PO DAILY Qty: 90 3RF sertraline 100 mg tablet 100 mg PO DAILY Qty: 90 0RF naproxen 500 mg tablet 500 mg PO BID PRN (Reason: pain) Qty: 60 1RF amlodipine 5 mg tablet 5 mg PO DAILY Qty: 90 0RF Follow-up/Referrals: Anna Razo APRN [Primary Care Provider, Family Practice] Stand Alone Forms: Work/School Release IP
[2025-03-23 15:57] LABS: INR 1.0; Partial Thromboplastin Time 26.5 Seconds (22.3-36.8); Prothrombin Time 12.7 Seconds (11.1-14.7)
[2025-03-23 15:58] LABS: Alanine Aminotransferase 48 U/L (6-50); Albumin Level 4.6 g/dL (3.5-5.1); Alkaline Phosphatase 71 U/L (38-126); Anion Gap 10 mmol/L (4-12); Aspartate Amino Transferase 36 U/L (17-59); Bilirubin,Total 0.6 mg/dL (0.2-1.3); Blood Urea Nitrogen 12 mg/dL (9-20); Calcium 9.3 mg/dL (8.4-10.2); Carbon Dioxide 24 mmol/L (22-30); Chloride 102 mmol/L (98-107); Estimated CRCL calculation 206 ml/min; Estimated Glomerular Filt Rate > 60; Glucose 84 mg/dL (65-110); Lipase 72 U/L (23-300); Potassium 4.3 mmol/L (3.4-5.0); Sodium 136 mmol/L (137-145); Total Protein 8.3 g/dL (6.3-8.2)
[2025-03-23 16:09] LABS: Troponin I < 0.012 ng/mL (0.000-0.034)
--- OUTSIDE RECORDS SUMMARY | 2025-03-23 16:20 | XMS_ITS | Clinical Summary ---
Author Organization [facility] Address [facility] [place] [address] Care Team Providers Care Manager Unix Name Role Phone None, Provider MD Primary Care Provider Unavaila ble Allergies Active Allergy Reactions Criticality Noted Date Comments Amoxicillin Unknown 10/26/2023 Dexlansoprazole Diarrhea,GI Upset,Vomiting High 01/23 Tramadol Other (see comment) Low 10/29/2021 Anger Medications HYDROcodone-juan ulis taminophen 5-325 MG tabletIndicatio ns:Acute Pain < [...] Sex Assigned at Male 07/29/2024 4:51 PM YARD MOTOR OPERATOR Legal Sex Male 5:47 PM CDT Gender Identity Not on file Sexual Orientation Not on file Last Filed Vital Signs Vital Sign Reading Time Taken Comments Blood Pressure 148/94 07/29/2024 5:17 PM YARD MOTOR OPERATOR Pulse 86 07/29/2024 5:17 PM YARD MOTOR OPERATOR Temperature 37.1 C (98.7 F) 07/29/2024 5:17 PM YARD MOTOR OPERATOR Respiratory Rate 18 07/29/2024 5:17 PM YARD MOTOR OPERATOR Oxygen Saturation 98% 07/29/2024 5:17 PM YARD MOTOR OPERATOR Inhaled Oxygen Concentration - - Weight 192.8 kg (425 lb) 07/29/2024 5:17 PM YARD MOTOR OPERATOR Height 190.5 cm (6' 3) 07/29/2024 5:17 PM YARD MOTOR OPERATOR Body Mass Index 53.12 07/29/2024 5:17 PM YARD MOTOR OPERATOR Plan of Treatment Health Maintenance Due Date Last Done Comments Annual Physical 1995 Hepatitis C 2010 Hepatitis B Vaccines (1 of 3 - 19+ 3-dose series) 2011 HPV Vaccines (1 - 3-dose SCDM series) 2019 DTaP, Tdap and Td Vaccines (3 - Td or Tdap) 06/05/2024 06/05/2014, 09/21/1996, 01/03/1993, Additional history exists COVID-19 Vaccine ( - 2024- season) 2025 Influenza Adult (#1) 2025 04/23/2022 Hepatitis A Vaccines Aged Out 10/29/2015, 06/05/19 15 No longer eligible based on patient's age [...] patient's age to complete this topic Insurance [facility] Care Teams Manager Unix Relationship Specialty Start Date End Date None, Provider, PCP - General UNKNOWN PHYSICIAN SPECIALTY 07/29/24
--- OUTSIDE RECORDS SUMMARY | 2025-03-23 16:20 | XMS_ITS | Clinical Summary ---
Author Organization [facility] Address [address] [place] [address] Care Team Providers Care Tire Changer Name Role Phone No, Physician Primary Care Provider [phone] Allergies Active Allergy Reactions Criticality Noted Date [...] on file Legal Sex Male 6:24 PM MANAGER PROCESS IMPROVEMENT Gender Identity Not on file Sexual Orientation [...] patient's age to complete this topic Insurance [facility] Advance Directives For more information, please contact: [phone] * Full Code (Latest Code Status on File) Date Activated Date Inactivated Comments 05/25/2021 1:56 PM 05/30/2021 6:52 PM Care Teams Tire Changer Relationship Specialty Start Date End Date No, Physician PCP - General 01/07/24
== END 2025-03-23 17:42 | disposition home or self-care (01) ==
PROVIDERS: Emergency Provider Emergency Medicine; PCP Nurse Practitioner Adult Health
DX: R07.9 Chest pain, unspecified (principal); R51.9 Headache, unspecified; I10 Essential (primary) hypertension
CPT/HCPCS: 36415; 71046; 80053; 83690; 84484; 85025; 85610; 85730; 93005; 99284

== ENCOUNTER 2025-04-19 08:35 | Outpatient (CLI) | payer BC, SELFPAY ==
[2025-04-22 16:07] LABS: Free Testosterone (Direct) 9.3 pg/mL (8.7-25.1)
== END 2025-04-19 08:36 | disposition home or self-care (01) ==
LOC: ANHLAB 08:36
PROVIDERS: PCP Nurse Practitioner Adult Health; Visit Provider Nurse Practitioner Adult Health
DX: R53.83 Other fatigue (principal)
CPT/HCPCS: 84402; 84403